=== PATIENT | male | born 1955 | race Caucasian/White ===

== ENCOUNTER 2018-06-29 13:06 | Inpatient (IN) | payer OTHER ==
[2018-06-29] MEDS ORDERED: BENZOIN/ALOE VERA/STORAX/TOLU 58 ML BOTTLE ONE (13:28)
[2018-06-29] MEDS ORDERED: methylPREDNISolone NA SUCC 125 MG/2 ML VIAL IVPB ONE (13:34)
--- NOTE | 2018-06-29 13:47 | PDOC ---
History of Present Illness <Ronda Castanedanadeen - Last Filed: 06/29/18 16:10> - General History Source: Patient, Family Exam Limitations: Clinical Condition - History of Present Illness Initial Comments: 06/29/18 13:40 Patient is a 62M with history of COPD, CHF here today complaining of shortness of breath that started yesterday. Patient also reports falling while trying to go to the bathroom last night. Denies LOC. States that he fell after tripping over his oxygen wire. EMS reports patient was diaphoretic with ETCO2 readings in 100s. BP was repeated as 100/50. Patient denies fevers/chills. Denies nausea , vomiting. Denies chest pain, leg swelling. Denies history of blood clots. Denies blood thinners. Denies pain in other extremities. <Rubén Garcia - Last Filed: 06/29/18 19:13> - General Chief Complaint: Shortness of Breath Stated Complaint: SOB Time Seen by Provider: 06/29/18 13:09 Past History <Ronda Castaneda Pavan - Last Filed: 06/29/18 16:10> - Past Medical History COPD: No CHF: No GI Disorders: Yes (umbilical hernia.) HTN: No Hypercholesterolemia: No - Surgical History Abdominal Surgery: Yes (abdominal hernia) Cholecystectomy: Yes - Suicide/Smoking/Psychosocial Hx Smoking History: Never smoked Have you smoked in the past 12 months: No Information on smoking cessation initiated: No Hx Alcohol Use: No Drug/Substance Use Hx: No Substance Use Type: None <Rubén Garcia - Last Filed: 06/29/18 19:13> - Past Medical History Allergies/Adverse Reactions: Allergies Allergy/AdvReac Type Severity Reaction Status Date / Time cephalexin [From Keflex] AdvReac Verified 06/29/18 13:08 Home Medications: Ambulatory Orders Unobtainable 06/29/18 Review of Systems - Review of Systems Comments:: 06/29/18 14:05 GENERAL/CONSTITUTIONAL: No fever or chills. No weakness. +diaphoresis HEAD, EYES, EARS, NOSE AND THROAT: No change in vision. No sore throat. CARDIOVASCULAR: No chest pain +shortness of breath RESPIRATORY: No cough, wheezing, or hemoptysis. GASTROINTESTINAL: No nausea, vomiting, diarrhea or constipation. GENITOURINARY: No dysuria, frequency, or change in urination. MUSCULOSKELETAL: No joint or muscle swelling or pain. No neck or back pain. SKIN: No rash NEUROLOGIC: No headache, vertigo, loss of consciousness, or change in strength/ sensation. ENDOCRINE: No increased thirst. No abnormal weight change HEMATOLOGIC/LYMPHATIC: No anemia, easy bleeding, or history of blood clots. ALLERGIC/IMMUNOLOGIC: No hives or skin allergy. <Rubén Garcia - Last Filed: 06/29/18 19:13> *Physical Exam - Vital Signs Last Vital Signs Temp Pulse Resp BP Pulse Ox 99.1 F 98 H 24 H 102/50 L 100 06/29/18 14:01 06/29/18 13:09 06/29/18 13:09 06/29/18 13:09 06/29/18 13:50 <Ronda Castaneda - Last Filed: 06/29/18 16:10> - Vital Signs Last Vital Signs Temp Pulse Resp BP Pulse Ox 96.5 F L 98 H 24 H 102/50 L 100 06/29/18 13:09 06/29/18 13:09 06/29/18 13:09 06/29/18 13:09 06/29/18 13:09 - Physical Exam Comments: 06/29/18 14:05 GENERAL: Awake, alert, and fully oriented, in acute distress HEAD: No signs of trauma, normocephalic, atraumatic EYES: PERRLA, EOMI, sclera anicteric, conjunctiva clear ENT: Auricles normal inspection, hearing grossly normal, nares patent, oropharynx clear without exudates. Moist mucosa. Blue lips. NECK: Normal ROM, supple, no lymphadenopathy, JVD, or masses LUNGS: Tachypneic, one word sentences, coarse breath sounds bilaterally HEART: Tachycardic, regular, 2/6 systolic blowing murmur. ABDOMEN: Soft, nontender, normoactive bowel sounds. No guarding, no rebound. No masses EXTREMITIES: Normal inspection, Normal range of motion, no edema. No clubbing or cyanosis. NEUROLOGICAL: Cranial nerves II through XII grossly intact. Normal speech, no focal sensorimotor deficits SKIN: Warm, Dry, normal turgor, no rashes or lesions noted. <Rubén Garcia - Last Filed: 06/29/18 19:13> Procedures - Intubation Intubation Method: orotracheal Blade used: Glidescope Tube Size (Fr): 7.5 Medications: Ketamine, Succinylcholine Tube position @ lip (cm): 20 Tube position confirmed by: Direct visualization, CO2 detector, Chest x-ray, Breath sounds Breath Sounds after Intubation: equal Intubation Complications: oral-unsuccessful attempt Post Intubation Xray: Yes (3cm above cy) Progress/Xray Impression: Gr 1 view, second attempt after DL failed <Rubné Garcia - Last Filed: 06/29/18 19:13> ED Treatment Course - LABORATORY CBC & Chemistry Diagram: 06/29/18 13:46 06/29/18 14:50 - ADDITIONAL ORDERS Additional order review: Laboratory Results 06/29/18 06/29/18 06/29/18 15:00 14:50 13:46 PT with INR INR PTT (Actin FS) Puncture Site No Result Required. ABG pH 7.18 L* ABG pCO2 at Pt Temp 144.0 H* ABG pO2 at Pt Temp 120.0 H ABG HCO3 51.2 H* ABG O2 Sat (Measured) 97.3 ABG O2 Content 22.7 H ABG Base Excess 13.8 H Bebeto Test No Result Required. VBG pH POC VBG pCO2 POC VBG pO2 Mixed VBG HCO3 Carboxyhemoglobin 2.0 Methemoglobin 0.3 L Oxygen Flow Rate No Result Required. Sodium 144 Potassium 4.4 Chloride 90 L Carbon Dioxide 49 H Anion Gap 5 L BUN 15 Creatinine 0.5 L Creat Clearance w eGFR > 60 Random Glucose 162 H Lactic Acid Calcium 8.2 L Magnesium 2.1 Total Bilirubin 0.5 AST 12 L ALT 16 Alkaline Phosphatase 78 Creatine Kinase 90 Troponin I < 0.02 Cancelled B-Natriuretic Peptide 55.4 Total Protein 6.9 Albumin 3.5 06/29/18 06/29/18 06/29/18 13:46 13:46 13:46 PT with INR 12.20 INR 1.03 PTT (Actin FS) 26.8 Puncture Site ABG pH ABG pCO2 at Pt Temp ABG pO2 at Pt Temp ABG HCO3 ABG O2 Sat (Measured) ABG O2 Content ABG Base Excess Bebeto Test VBG pH POC VBG pCO2 POC VBG pO2 Mixed VBG HCO3 Carboxyhemoglobin Methemoglobin Oxygen Flow Rate Sodium Cancelled Potassium Cancelled Chloride Cancelled Carbon Dioxide Cancelled Anion Gap Cancelled BUN Cancelled Creatinine Cancelled Creat Clearance w eGFR Cancelled Random Glucose Cancelled Lactic Acid 2.5 H* Calcium Cancelled Magnesium Total Bilirubin Cancelled AST Cancelled ALT Cancelled Alkaline Phosphatase Cancelled Creatine Kinase Troponin I B-Natriuretic Peptide Total Protein Cancelled Albumin Cancelled 06/29/18 13:46 PT with INR INR PTT (Actin FS) Puncture Site ABG pH ABG pCO2 at Pt Temp ABG pO2 at Pt Temp ABG HCO3 ABG O2 Sat (Measured) ABG O2 Content ABG Base Excess Bebeto Test VBG pH Cancelled POC VBG pCO2 Cancelled POC VBG pO2 Cancelled Mixed VBG HCO3 Cancelled Carboxyhemoglobin Methemoglobin Oxygen Flow Rate Sodium Potassium Chloride Carbon Dioxide Anion Gap BUN Creatinine Creat Clearance w eGFR Random Glucose Lactic Acid Calcium Magnesium Total Bilirubin AST ALT Alkaline Phosphatase Creatine Kinase Troponin I B-Natriuretic Peptide Total Protein Albumin 06/29/18 14:21 Influenza Types A,B Antigen - Final Nasopharyngeal Swab - Final 06/29/18 13:46 RBC 4.27 MCV 88.4 MCHC 32.8 RDW 15.7 MPV 8.8 Neutrophils % 85.4 H Lymphocytes % 7.7 L Monocytes % 5.4 Eosinophils % 0.6 Basophils % 0.9 - Medications Given in the ED: ED Medications Discontinued Medications Generic Name Dose Route Start Last Admin Trade Name Jesse PRN Reason Stop Dose Admin Albuterol/Ipratropium 1 amp 06/29/18 13:45 06/29/18 14:45 Duoneb - NEB 06/29/18 14:31 1 amp Q15M EDMUNDO Administration Methylprednisolone Sodium Succinate 125 mg 06/29/18 13:34 06/29/18 13:54 Solu-Medrol - IVPB 06/29/18 13:35 125 mg ONCE ONE Administration <Ronda Castaneda - Last Filed: 06/29/18 16:10> - LABORATORY CBC & Chemistry Diagram: 06/29/18 13:46 06/29/18 14:50 - RADIOLOGY Radiology Studies Ordered: Category Date Time Status CHEST X-RAY PORTABLE* [RAD] Stat Radiology 06/29/18 13:33 Ordered <Rubén Garcia - Last Filed: 06/29/18 19:13> Medical Decision Making - Medical Decision Making 06/29/18 14:07 Patient is 62M with history of COPD and CHF here today with shortness of breath. Vitals notable for tachycardia and tachypnea. Septic workup initiated. DDx includes, but is not limited to: CHF, COPD, pneumonia, PE. Bedside ultrasound shows no b-lines. Given 4 duonebs with some improvement in oxygenation. Desatted to 70s, started on continuous albuterol. Steroids given. CT head ordered, but low suspicion for head bleed, risk not worth benefit as patient not stable enough for head ct. EKG shows sinus tachycardia. No st elevations/depressions. Q waves in inferior leads. Normal intervals. Left axis. 06/29/18 16:54 CXR of limited quality. Shows possible bilateral pneumonia. Will antibiose. After 40 minutes of bipap, patient's ABG drawn, showed pH of 7.18, pCO2 of 144. Patient diaphoretic, mental status waning. Decision made to intubate with family at bedside. Family in agreement. Intubation completed with glidescope with grade 1 view and bougie. 7.5 tube placed 21 at the lip. Vent settings Vt 500 RR 24, 100% O2. X-ray shows tube 3- 4cm above cy. Patient's follow up blood gas much improved after 20 minutes of ventilation. Sedated with propofol bolus and drip. CMP reassuring, normal kidney function. Troponin undetectable. BNP negative. Pending CT scans. D/w Dr Paez. Patient admission accepted to ICU. ICU approved by Dr Krishna for Dr Jasmine. Patient will go from ED to CT to ICU to minimize transfers of patient on vent. 06/29/18 17:39 Patient is difficult to sedate, becoming hypotensive with appropriately sedated , awake when sedation is decreased. Changing to fentanyl/versed for sedation. Stablizing for CT. 06/29/18 19:[address] Mcnair, pending transfer to ICU. <Rubén Garcia - Last Filed: 06/29/18 19:13> *DC/Admit/Observation/Transfer - Discharge Dispostion Decision to Admit order: Yes Decision to Admit order Date/Time: Decision to Admit Order Category Date Time Status Decision to Admit to Hospital Routine Admission 06/29/18 16:07 Ordered <Ronda Castaneda - Last Filed: 06/29/18 16:10> - Discharge Dispostion Decision to Admit order: Yes <Rubén Garcia - Last Filed: 06/29/18 19:13> Diagnosis at time of Disposition: Acute respiratory failure, Acute respiratory acidosis, COPD (chronic obstructive pulmonary disease), Traumatic hematoma of forehead - Discharge Dispostion Condition at time of disposition: Critical
[2018-06-29] MEDS ORDERED: ALBUTEROL SO4 2.5/IPRATROPIUM 0.5 INH SOL 3 ML VIAL.NEB. NEB ONE (13:53)
[2018-06-29] MEDS: ALBUTEROL SO4 2.5/IPRATROPIUM 0.5 INH SOL 3 ML VIAL.NEB. NEB SCH ×4 (13:53→14:45)
[2018-06-29] MEDS ORDERED: methylPREDNISolone NA SUCC 125 MG/2 ML VIAL ONE (13:54)
[2018-06-29 14:10] LABS: BASO % 0.9 % (0-2.0); EOS % 0.6 % (0-4.5); HEMATOCRIT 37.8 % (35.4-49); HEMOGLOBIN 12.4 GM/dL (11.7-16.9); LYMPH % 7.7 % (8-40); MCHC 32.8 g/dl (32.0-35.9); MEAN CELL VOLUME 88.4 fl (80-96); MEAN PLT VOLUME 8.8 fl (7.5-11.1); MONO % 5.4 % (3.8-10.2); NEUT % 85.4 % (42.8-82.8); PLATELET COUNT 193 K/MM3 (134-434); RBC 4.27 M/mm3 (4.00-5.60); RDW 15.7 % (11.9-15.9)
--- NOTE | 2018-06-29 14:19 | PDOC ---
Attending Attestation - Resident Resident Name: Rubén Garcia - ED Attending Attestation I have performed the following: I have examined & evaluated the patient, The case was reviewed & discussed with the resident, I agree w/resident's findings & plan - HPI HPI: 06/29/18 14:14 Denny 62M with history of obesity, COPD on O2, CHF here today complaining of shortness of breath that started yesterday, x2 episodes of falling after tripping over his O2 wire. - Physicial Exam PE: 06/29/18 14:15 Alert, unable to speak full sentences, in severe respiratory distress, +pursing lips. tachypneic. malaised appearing. +forehead hematoma/contusion. PERRL, EOMI , pale conjunctiva, anicteric; neck supple, copoius soft tissue. poor inspiratory effort, diminished breath sounds diffusely. +tachycardic and + holosystolic murmur present. abdomen soft obese, anterior ventral soft hernia w/ o skin changes and nontender. no focal neuro deficits. bilateral peripheral edema. no calf tenderness. +peripheral and lip cyanosis 06/29/18 15:14 - Critical Care Time Total Critical Care Time: 60 (acute respiratory failure) Critical Care Statement: The care of this patient involved high complexity decision making to prevent further life threatening deterioration of the patient 's condition and/or to evaluate & treat vital organ system(s) failure or risk of failure. - Medical Decision Making 06/29/18 14:14 Denny 62M with history of obesity, COPD on O2, CHF here today complaining of shortness of breath that started yesterday, x2 episodes of falling after tripping over his O2 wire. via EMS, Endtidal CO2 noted to be 100s. s/p fall from yesterday with contusion/hematoma over forehead Denny 62M with history of obesity, COPD on O2, CHF here today complaining of shortness of breath that started yesterday, x2 episodes of falling after tripping over his O2 wire. DDx SOB: ACS, PE, COPD exac. CO2 narcosis, hypoventilatory syndrome, CHF, pulmonary edema, pleurisy, pneumonia, viral syndrome. effusion. anemia, electrolyte/metabolic derangements. Vital signs reviewed, +tachy, tachypneic, in moderate to severe respiratory distress. CXR_diffuse edema/patchy infiltrative pattern Cardiac panel_neg bnp and troponin, less likely cardiac or CHF. no elevation in biomarkers, so less likely RV strain with unremarkable Echo RV<LV, otherwise indeterminate for pericardial effusion as poor cardiac windows; b/l A lines, normal lung profile finding on US. EKG sinus tachycardia, no interval abnormalities, narrow QRS, ST and T wave segments and morphology normal. Nonspecific T wave abnormalities ED course: Clinically monitored after interventions, including Duonebs x3, continuous albuterol nebs, IV solumedrol, Bipap therapy and unable to wean. There was a brief period of hypoxia in 70s with good waveform, with non-fitting mask which is changed to ensure good seal. No prior notes here. laboratory results and imaging reviewed, basic labs and lytes +leukocytosis 14K, will treat with abx. ABG grossly abnormal with CO2 retention ~140s, acute respiratory acidosis pH 7.18. This obtained on Bipap therapy x 30-60min already, so will intubate for acute decompensated respiratory failure and AMS/CO2 retention/derangement. Emergent Intubation performed, family consented, as failing bipap. 2 attempts by resident, b/l breath sounds and ETCO2 80s. versed sedation/fentanyl for pain control. Gore, NGT, GI ppx, analgesia, IV abx for empiric coverage vancomycin/ zosyn. CT head to r/o bleed/injury. CT Angio to r/o PE given hypoxia and respiratory failure and alternative etiology. ICU cs, accepted primary made aware, Dr Barboza/Cynthia. Dispo: Admit to ICU for acute hypercap/hypoxic respiratory failure, PNA? Vs severe COPD exac. Discussed results and management plan with pt and family member at bedside, agree with impression and plan 06/29/18 17:27 06/29/18 17:28 06/30/18 17:41 Heart Score/ECG Review - ECG Impressions Comment:: 06/29/18 14:17 EKG normal sinus rhythm, no interval abnormalities, narrow QRS, ST and T wave segments and morphology normal. Nonspecific T wave abnormalities Procedures - Bedside Ultrasound Bedside Ultrasound: Cardiac Remarks: 06/29/18 17:22 POCUS echo and thoracic exam performed, indication includes chest pain/dyspnea. views obtained (PSLA, PSS, A4, SX, bilateral thoracic de la garza). Findings include normal EF, bases unable to be visualized due to poor windows, indeterminate pericardial effusion, primarily A lines, . Normal aortic root <4cm. RV<LV. Impression: indeterminate study for pericardial or pleural effusion, otherwise no acute findings
[2018-06-29 14:20] LABS: INR 1.03 (0.83-1.09); PROTHROMBIN TIME (PATIENT) 12.2 SEC (9.7-13.0)
[2018-06-29 14:23] LABS: ACTIVATED PTT 26.8 SECONDS (25.2-36.5)
[2018-06-29 15:02] LABS: ARTERIAL BLD GAS O2 SATURATION 97.3 % (90-98.9); ARTERIAL BLOOD GAS BASE EXCESS 13.8 meq/l (-2-2)
[2018-06-29 15:04] LABS: ARTERIAL BLOOD GAS pH 7.18 (7.35-7.45)
[2018-06-29] MEDS ORDERED: KETAMINE HCL 500 MG/10 ML VIAL ONE (15:18)
[2018-06-29] MEDS ORDERED: SUCCINYLCHOLINE CHLORIDE 200 MG/10 ML VIAL ONE (15:19)
[2018-06-29 15:52] LABS: ALBUMIN 3.5 g/dl (3.4-5.0); ALK PHOS 78 U/L (45-117); BILIRUBIN,TOTAL 0.5 mg/dL (0.2-1); BLOOD UREA NITROGEN 15 mg/dL (7-18); CALCIUM 8.2 mg/dL (8.5-10.1); CHLORIDE 90 mmol/L (98-107); CREATININE 0.5 mg/dL (0.55-1.3); GLUCOSE,RANDOM 162 mg/dL (74-106); MAGNESIUM 2.1 mg/dL (1.8-2.4); N-TERMINAL BNP 55.4 pg/ml (5-125); POTASSIUM 4.4 mmol/L (3.5-5.1); SGOT/AST 12 U/L (15-37); SGPT/ALT 16 U/L (13-61); SODIUM 144 mmol/L (136-145); TOT PROT 6.9 g/dl (6.4-8.2)
[2018-06-29 15:56] LABS: ANION GAP 5 MMOL/L (8-16); CO2 49 mmol/L (21-32)
[2018-06-29] MEDS ORDERED: PROPOFOL 1,000,000 MCG/100 ML VIAL ONE ×2 (16:05→20:19)
[2018-06-29] MEDS ORDERED: SUCCINYLCHOLINE CHLORIDE 200 MG/10 ML VIAL IVPUSH ONE (16:07)
[2018-06-29] MEDS ORDERED: KETAMINE HCL 200 MG/20 ML VIAL IVPUSH ONE (16:07)
[2018-06-29] MEDS ORDERED: VANCOMYCIN 2,000 MG in DEXTROSE 5%-WATER - 250 ML IVPB ONE (16:08)
[2018-06-29] MEDS ORDERED: PIPERACILLIN/TAZOB 4.5 GM 4.5 GM in DEXTROSE 5%-WATER 100 ML IVPB ONE (16:09)
[2018-06-29] MEDS: PROPOFOL 1,000,000 MCG/100 ML VIAL IVPB SCH (16:15)
[2018-06-29 16:29] LABS: ARTERIAL BLD GAS O2 SATURATION 97.9 % (90-98.9); ARTERIAL BLOOD GAS pH 7.33 (7.35-7.45); CARBOXYHEMOGLOBIN 2.4 gm% (0.5-2.0)
[2018-06-29 16:33] LABS: ARTERIAL BLOOD GAS BASE EXCESS 18.5 meq/l (-2-2); ARTERIAL BLOOD GAS PCO2 94.9 mmHg (35-45)
[2018-06-29] MEDS ORDERED: PIPERACILLIN/TAZOB 4.5 GM 4.5 GM/100 ML BAG IVPB ONE (16:44)
[2018-06-29] MEDS ORDERED: VANCOMYCIN 1 GRAM (PRE-DOCKED) 2,000 MG/500 ML BAG IVPB ONE (16:45)
[2018-06-29] MEDS ORDERED: VANCOMYCIN 2,000 MG in DEXTROSE 5%-WATER - 500 ML IVPB ONE (16:50)
[2018-06-29] MEDS ORDERED: PROPOFOL 200 MG/20 ML VIAL IVPUSH ONE ×2 (16:52)
[2018-06-29] MEDS ORDERED: MIDAZOLAM HCL 2 MG/2 ML SINGLE DOSE VIAL ONE (17:24)
[2018-06-29] MEDS ORDERED: MIDAZOLAM HCL 5 MG/1 ML Single Dose Vial IVPUSH ONE (17:24)
[2018-06-29] MEDS ORDERED: PANTOPRAZOLE SODIUM 40 MG VIAL IVPUSH ONE (17:28)
[2018-06-29] MEDS ORDERED: MIDAZOLAM 100 MG in SODIUM CHLORIDE 100 ML IVPB SCH (17:30)
[2018-06-29] MEDS ORDERED: PANTOPRAZOLE SODIUM 40 MG VIAL ONE (17:34)
[2018-06-29] MEDS ORDERED: MIDAZOLAM 100 MG/100 ML MG IVPB ONE (17:41)
[2018-06-29] MEDS: FENTANYL INJECTION 500 MCG in DEXTROSE 5%-WATER - 90 ML IVPB SCH (17:42)
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
[2018-06-29 18:18] LABS: URINE APPEARANCE CLEAR; URINE BILIRUBIN NEGATIVE (<2.0 mg/dL); URINE COLOR AMBER; URINE GLUCOSE (UA) NEGATIVE (NEGATIVE); URINE KETONE TRACE (NEGATIVE); URINE LEUK ESTERASE NEGATIVE (NEGATIVE); URINE NITRITE NEGATIVE (NEGATIVE); URINE PROTEIN 2+ (NEGATIVE); URINE UROBILINOGEN 4.0 E.U/dl mg/dL (0.2-1.0)
[2018-06-29 18:19] LABS: EPI CELLS RARE /HPF (FEW); URINE HYALINE CAST 13 /lpf; URINE MUCUS MANY
[2018-06-29] MEDS: ALBUTEROL SO4 0.083% IH SOL 2.5 MG/3 ML VIAL.NEB. NEB SCH ×2 (18:20→21:55)
[2018-06-29] MEDS: methylPREDNISolone NA SUCC 40 MG/1 ML VIAL IVPB SCH ×2 (18:20→22:05)
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
[2018-06-29] MEDS ORDERED: IBUPROFEN 400 MG TABLET (FP) PO ONE (18:30)
[2018-06-29 20:35] LABS: N-TERMINAL BNP 54.8 pg/ml (5-125)
[2018-06-29] MEDS ORDERED: SODIUM CHLORIDE 0.9% 500 ML INFUS.BAG IV ONE (21:37)
[2018-06-29] MEDS ORDERED: PNEUMOC 13-VAL CONJ-DIP CRM/PF 0.5 ML DISP.SYRIN IM ONE (21:37)
[2018-06-29] MEDS ORDERED: ACETAMINOPHEN 1000 MG/100 ML VIAL (NON FORMULARY) IVPB ONE (21:50)
[2018-06-29] MEDS ORDERED: fentaNYL CITRATE 250 MCG/5 ML VIAL ONE (22:47)
[2018-06-29] MEDS ORDERED: ALBUTEROL SO4 2.5/IPRATROPIUM 0.5 INH SOL 3 ML VIAL.NEB. NEB PRN (22:58)
[2018-06-29] MEDS ORDERED: ACETAMINOPHEN 1000 MG/100 ML VIAL (NON FORMULARY) IVPB PRN (23:41)
[2018-06-29] MEDS ORDERED: SODIUM CHLORIDE 1,000 ML IV SCH (23:45)
[2018-06-30] MEDS: MIDAZOLAM 100 MG in SODIUM CHLORIDE 100 ML IVPB SCH ×2 (00:27→08:55)
[2018-06-30] MEDS: methylPREDNISolone NA SUCC 40 MG/1 ML VIAL IVPB SCH ×4 (02:51→22:32)
[2018-06-30] MEDS ORDERED: SODIUM CHLORIDE 500 ML IV STA (05:33)
[2018-06-30 06:03] LABS: ARTERIAL BLD GAS O2 SATURATION 99.9 % (90-98.9); ARTERIAL BLOOD GAS BASE EXCESS 17.3 meq/l (-2-2); ARTERIAL BLOOD GAS PCO2 49.3 mmHg (35-45); ARTERIAL BLOOD GAS pH 7.55 (7.35-7.45)
[2018-06-30 06:41] LABS: BASO % 0.1 % (0-2.0); HEMATOCRIT 33.5 % (35.4-49); HEMOGLOBIN 10.7 GM/dL (11.7-16.9); LYMPH % 3.7 % (8-40); MCH 28.1 pg (25.7-33.7); MCHC 31.9 g/dl (32.0-35.9); MEAN CELL VOLUME 88.3 fl (80-96); NEUT % 94.2 % (42.8-82.8); PLATELET COUNT 147 K/MM3 (134-434); RBC 3.79 M/mm3 (4.00-5.60); RDW 15.1 % (11.9-15.9); WHITE BLOOD COUNT 12.5 K/mm3 (4.0-10.0)
[2018-06-30 06:57] LABS: ALLENS TEST POSITIVE
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
[2018-06-30 07:27] LABS: ALBUMIN 2.9 g/dl (3.4-5.0); ALK PHOS 64 U/L (45-117); ANION GAP 4 MMOL/L (8-16); BILIRUBIN,TOTAL 0.7 mg/dL (0.2-1); BLOOD UREA NITROGEN 22 mg/dL (7-18); CALCIUM 8.3 mg/dL (8.5-10.1); CHLORIDE 91 mmol/L (98-107); CO2 42 mmol/L (21-32); CREATININE 0.8 mg/dL (0.55-1.3); GLUCOSE,RANDOM 196 mg/dL (74-106); MAGNESIUM 1.9 mg/dL (1.8-2.4); SGOT/AST 12 U/L (15-37); SGPT/ALT 15 U/L (13-61); SODIUM 137 mmol/L (136-145); TOT PROT 5.8 g/dl (6.4-8.2)
[2018-06-30 07:41] LABS: PHOSPHOROUS 0.8 mg/dL (2.5-4.9)
[2018-06-30] MEDS: FENTANYL INJECTION 500 MCG in DEXTROSE 5%-WATER - 90 ML IVPB SCH ×2 (08:31→13:39)
[2018-06-30] MEDS: PROPOFOL 1,000,000 MCG/100 ML VIAL IVPB SCH ×3 (08:32→18:46)
[2018-06-30] MEDS ORDERED: MIDAZOLAM 100 MG/100 ML MG IVPB ONE (08:42)
[2018-06-30] MEDS ORDERED: PT OWN MED DRAWER 7, Y5N ONE ×4 (09:41→21:07)
[2018-06-30] MEDS ORDERED: PNEUMOCOCCAL 23 VACCINE 0.5 ML VIAL IM ONE (10:00)
[2018-06-30] MEDS ORDERED: AZITHROMYCIN IVPB 500 MG/250 ML BAG IVPB SCH (10:00)
[2018-06-30] MEDS: ENOXAPARIN NA (PORCINE) 40 MG/0.4 ML DISP.SYRIN SQ SCH (10:10)
--- NOTE | 2018-06-30 10:18 | PN ---
Teaching Attending Note Name of Resident: Long Ariza ATTENDING PHYSICIAN STATEMENT I saw and evaluated the patient. I reviewed the resident's note and discussed the case with the resident. I agree with the resident's findings and plan as documented. SUBJECTIVE: Patient seen and examined in the ICU. Intubated and sedated. Obstructive pattern on flow loops. No breath stacking. Respiratory alkalosis on ABG. AC Mode of vent, 60% FiO2. No pressors. Intake & Output 06/27/18 06/28/18 06/29/18 06/30/18 23:59 23:59 23:59 23:59 Intake Total 415 2295 Output Total 500 750 Balance -85 1545 Weight 340 lb Last Vital Signs Temp Pulse Resp BP Pulse Ox 99.9 F H 65 16 130/74 100 06/30/18 06:00 06/30/18 08:00 06/30/18 09:43 06/30/18 08:00 06/29/18 19:51 Active Medications Acetaminophen (Ofirmev Injection -) 1,000 mg IVPB Q6H PRN PRN Reason: FEVER Last Admin: 06/30/18 02:51 Dose: 1,000 mg Albuterol Sulfate (Ventolin 0.083% Nebulizer Soln -) 1 amp NEB RQID EDMUNDO Last Admin: 06/29/18 21:55 Dose: 1 amp Albuterol/Ipratropium (Duoneb -) 1 amp NEB Q6H PRN PRN Reason: SHORTNESS OF BREATH Enoxaparin Sodium (Lovenox -) 40 mg SQ DAILY EDUMNDO Propofol (Diprivan -) 1,000,000 mcg in 100 mls @ 4.463 mls/hr IVPB TITR EDMUNDO; Protocol Last Admin: 06/30/18 08:32 Dose: 25 mcg/kg/min, 22.317 mls/hr Fentanyl 500 mcg/ Dextrose 100 mls @ 20 mls/hr IVPB TITR EDMUNDO Stop: 06/30/18 17:29 Last Admin: 06/30/18 08:31 Dose: 100 mcg/hr, 20 mls/hr Midazolam HCl 100 mg/ Sodium (Chloride) 100 mls @ 7 mls/hr IVPB TITR EDMUNDO; Protocol Stop: 06/30/18 17:29 Last Admin: 06/30/18 08:55 Dose: 5 mg/hr, 5 mls/hr Sodium Chloride (Normal Saline -) 1,000 mls @ 100 mls/hr IV ASDIR EDMUNDO Last Admin: 06/30/18 00:27 Dose: 100 mls/hr Levofloxacin (Levaquin 750 Mg Premixed Ivpb -) 750 mg in 150 mls @ 100 mls/hr IVPB DAILY EDMUNDO; Protocol Last Admin: 06/30/18 07:01 Dose: 100 mls/hr Methylprednisolone Sodium Succinate (Solu-Medrol -) 60 mg IVPB Q6H-IV EDMUNDO Last Admin: 06/30/18 02:51 Dose: 60 mg Pantoprazole Sodium (Protonix Iv) 40 mg IVPUSH DAILY [facility]: Morbidly obese male, Sedated and Intubated HEAD: hematoma on the forehead, no signs of active bleeding. EYES: No pallor or icterus. EARS, NOSE, THROAT: Moist mucous membranes. NECK: Short and thick, no JVD. LUNGS: diminished breath sounds at the bases Left>Right, mild expiratory wheeze HEART: Regular rate and rhythm, normal S1 and S2 with soft systolic murmur. ABDOMEN: Ventral hernia, soft umbilical hernia, abdomen is soft, BS +, no organomegaly. MUSCULOSKELETAL: Normal range of motion at all joints. No bony deformities or tenderness. No CVA tenderness. UPPER EXTREMITIES: 2+ pulses, warm, well-perfused. No cyanosis. No clubbing. LOWER EXTREMITIES: 2+ pulses, warm, well-perfused. No calf tenderness. B/l trace peripheral edema up to mid matos. NEUROLOGICAL: Sedated and intubated. SKIN: Warm, dry, normal turgor, no rashes or lesions noted. ASSESSMENT/PLAN: Acute Hypoxic and Hypercapneic Respiratory Failure due to AE of COPD and LLL CAP Severe COPD on 6 L NC O2 at home Hypertension History of CHF OSAS on CPAP OHS Morbid Obesity BD TX standing and PRN Medrol Decrease RR Follow ABG VTE prophylaxis Check sputum Check Urine antigen ABX per ID Enteral feeds GI prophylaxis after [address] Jasmine - Critical Care Critical Care patient: Yes Total Critical Care Time (in minutes): 36 Critical Care Statement: The care of this patient involved high complexity decision making to prevent further life threatening deterioration of the patient 's condition and/or to evaluate & treat vital organ system(s) failure or risk of failure.
[2018-06-30] MEDS ORDERED: ALBUTEROL SO4 0.083% IH SOL 2.5 MG/3 ML VIAL.NEB. NEB PRN (10:19)
[2018-06-30 10:56] LABS: ANISOCYTOSIS 1+; MACROCYTOSIS 0; PLATELET ESTIMATE DECREASED
[2018-06-30] MEDS: PANTOPRAZOLE SODIUM 40 MG VIAL IVPUSH SCH (11:17)
[2018-06-30] MEDS ORDERED: POTASSIUM PHOSPHATE 30 MM in DEXTROSE 5%-WATER - 250 ML IVPB ONE (11:45)
--- NOTE | 2018-06-30 11:50 | PN ---
Progress Note (short form) - Note Progress Note: ID Consult dictated Hypercapneic respiratory failure Pneumonia Fever/ leukocytosis Possible sepsis secondary to pneumonia Lactic acidosis Cephalosporin allergy Pending sepsis workup empiric levaquin/Vancomycin Critical care time 35min
[2018-06-30] MEDS: ALBUTEROL SO4 2.5/IPRATROPIUM 0.5 INH SOL 3 ML VIAL.NEB. NEB SCH ×3 (12:00→20:40)
--- NOTE | 2018-06-30 12:29 | PN ---
Physical Exam: SUBJECTIVE: Patient seen and examined patient intubated and sedated on midazolam, fentanyl and propofol drip family at bed side OBJECTIVE: Vital Signs Period Temp Pulse Resp BP Sys/Can Pulse Ox Last 24 Hr 96.5 F-102.7 F 63-98 16-24 75-145/50-110 86-100 GENERAL: Morbidly obese male, Sedated and Intubated EYES: No pallor or icterus. EARS, NOSE, THROAT: Moist mucous membranes. NECK: no JVD. LUNGS: b/l air entry present, decrese entry at bases, no crackles HEART: Regular rate and rhythm, normal S1 and S2 with soft systolic murmur. ABDOMEN:umbilical hernia, abdomen is soft, BS +, UPPER EXTREMITIES: 2+ pulses, warm, well-perfused. No cyanosis. LOWER EXTREMITIES: B/l trace peripheral edema SKIN: Warm, dry, Laboratory Results - last 24 hr 06/29/18 06/29/18 06/29/18 13:46 13:46 13:46 WBC 14.0 H RBC 4.27 Hgb 12.4 Hct 37.8 MCV 88.4 MCH 29.0 MCHC 32.8 RDW 15.7 Plt Count 193 MPV 8.8 Absolute Neuts (auto) 12.0 H Neutrophils % 85.4 H Neutrophils % (Manual) Band Neutrophils % Lymphocytes % 7.7 L Lymphocytes % (Manual) Monocytes % 5.4 Monocytes % (Manual) Eosinophils % 0.6 Eosinophils % (Manual) Basophils % 0.9 Basophils % (Manual) Myelocytes % (Man) Promyelocytes % (Man) Blast Cells % (Manual) Nucleated RBC % 0 Metamyelocytes Hypochromia Platelet Estimate Polychromasia Poikilocytosis Anisocytosis Microcytosis Macrocytosis Stomatocytes PT with INR 12.20 INR 1.03 PTT (Actin FS) 26.8 Anticoagulation Therapy Puncture Site Patient Temperature ABG pH ABG pCO2 at Pt Temp ABG pO2 at Pt Temp ABG HCO3 ABG O2 Sat (Measured) ABG O2 Content ABG Base Excess Bebeto Test VBG pH Cancelled POC VBG pCO2 Cancelled POC VBG pO2 Cancelled Mixed VBG HCO3 Cancelled Carboxyhemoglobin Methemoglobin O2 Delivery Device Oxygen Flow Rate Vent Mode Vent Rate Mechanical Rate PEEP Pressure Support Vent Sodium Potassium Chloride Carbon Dioxide Anion Gap BUN Creatinine Creat Clearance w eGFR Random Glucose Lactic Acid Calcium Phosphorus Magnesium Total Bilirubin AST ALT Alkaline Phosphatase Creatine Kinase Troponin I B-Natriuretic Peptide Total Protein Albumin Urine Color Urine Appearance Urine pH Ur Specific [place] Urine Protein Urine Glucose (UA) Urine Ketones Urine Blood Urine Nitrite Urine Bilirubin Urine Urobilinogen Ur Leukocyte Esterase Urine WBC (Auto) Urine RBC (Auto) Ur Epithelial Cells Hyaline Casts Urine Mucus 06/29/18 06/29/18 06/29/18 13:46 13:46 13:46 WBC RBC Hgb Hct MCV MCH MCHC RDW Plt Count MPV Absolute Neuts (auto) Neutrophils % Neutrophils % (Manual) Band Neutrophils % Lymphocytes % Lymphocytes % (Manual) Monocytes % Monocytes % (Manual) Eosinophils % Eosinophils % (Manual) Basophils % Basophils % (Manual) Myelocytes % (Man) Promyelocytes % (Man) Blast Cells % (Manual) Nucleated RBC % Metamyelocytes Hypochromia Platelet Estimate Polychromasia Poikilocytosis Anisocytosis Microcytosis Macrocytosis Stomatocytes PT with INR INR PTT (Actin FS) Anticoagulation Therapy Puncture Site Patient Temperature ABG pH ABG pCO2 at Pt Temp ABG pO2 at Pt Temp ABG HCO3 ABG O2 Sat (Measured) ABG O2 Content ABG Base Excess Bebeto Test VBG pH POC VBG pCO2 POC VBG pO2 Mixed VBG HCO3 Carboxyhemoglobin Methemoglobin O2 Delivery Device Oxygen Flow Rate Vent Mode Vent Rate Mechanical Rate PEEP Pressure Support Vent Sodium Cancelled Potassium Cancelled Chloride Cancelled Carbon Dioxide Cancelled Anion Gap Cancelled BUN Cancelled Creatinine Cancelled Creat Clearance w eGFR Cancelled Random Glucose Cancelled Lactic Acid 2.5 H* Calcium Cancelled Phosphorus Magnesium Total Bilirubin Cancelled AST Cancelled ALT Cancelled Alkaline Phosphatase Cancelled Creatine Kinase Troponin I Cancelled B-Natriuretic Peptide Total Protein Cancelled Albumin Cancelled Urine Color Urine Appearance Urine pH Ur Specific [place] Urine Protein Urine Glucose (UA) Urine Ketones Urine Blood Urine Nitrite Urine Bilirubin Urine Urobilinogen Ur Leukocyte Esterase Urine WBC (Auto) Urine RBC (Auto) Ur Epithelial Cells Hyaline Casts Urine Mucus 06/29/18 06/29/18 06/29/18 14:50 15:00 16:20 WBC RBC Hgb Hct MCV MCH MCHC RDW Plt Count MPV Absolute Neuts (auto) Neutrophils % Neutrophils % (Manual) Band Neutrophils % Lymphocytes % Lymphocytes % (Manual) Monocytes % Monocytes % (Manual) Eosinophils % Eosinophils % (Manual) Basophils % Basophils % (Manual) Myelocytes % (Man) Promyelocytes % (Man) Blast Cells % (Manual) Nucleated RBC % Metamyelocytes Hypochromia Platelet Estimate Polychromasia Poikilocytosis Anisocytosis Microcytosis Macrocytosis Stomatocytes PT with INR INR PTT (Actin FS) Anticoagulation Therapy Pediatric Anesthesiologist No Result Required. Puncture Site Pediatric Anesthesiologist No Result Required. Patient Temperature Pediatric Anesthesiologist ABG pH 7.18 L* 7.33 L D ABG pCO2 at Pt Temp 144.0 H* 94.9 H* D ABG pO2 at Pt Temp 120.0 H 102.0 H ABG HCO3 51.2 H* 48.5 H* ABG O2 Sat (Measured) 97.3 97.9 ABG O2 Content 22.7 H 16.1 ABG Base Excess 13.8 H 18.5 H* Bebeto Test Pediatric Anesthesiologist No Result Required. VBG pH POC VBG pCO2 POC VBG pO2 Mixed VBG HCO3 Carboxyhemoglobin 2.0 2.4 H Methemoglobin 0.3 L 0.1 L O2 Delivery Device Pediatric Anesthesiologist No Result Required. Oxygen Flow Rate Pediatric Anesthesiologist No Result Required. Vent Mode Pediatric Anesthesiologist No Result Required. Vent Rate Pediatric Anesthesiologist 24 Mechanical Rate Pediatric Anesthesiologist No Result Required. PEEP Pediatric Anesthesiologist 5.0 Pressure Support Vent Pediatric Anesthesiologist No Result Required. Sodium 144 Potassium 4.4 Chloride 90 L Carbon Dioxide 49 H Anion Gap 5 L BUN 15 Creatinine 0.5 L Creat Clearance w eGFR > 60 Random Glucose 162 H Lactic Acid Calcium 8.2 L Phosphorus Magnesium 2.1 Total Bilirubin 0.5 AST 12 L ALT 16 Alkaline Phosphatase 78 Creatine Kinase 90 Troponin I < 0.02 B-Natriuretic Peptide 55.4 Total Protein 6.9 Albumin 3.5 Urine Color Urine Appearance Urine pH Ur Specific [place] Urine Protein Urine Glucose (UA) Urine Ketones Urine Blood Urine Nitrite Urine Bilirubin Urine Urobilinogen Ur Leukocyte Esterase Urine WBC (Auto) Urine RBC (Auto) Ur Epithelial Cells Hyaline Casts Urine Mucus 06/29/18 06/29/18 06/29/18 17:50 18:00 19:59 WBC RBC Hgb Hct MCV MCH MCHC RDW Plt Count MPV Absolute Neuts (auto) Neutrophils % Neutrophils % (Manual) Band Neutrophils % Lymphocytes % Lymphocytes % (Manual) Monocytes % Monocytes % (Manual) Eosinophils % Eosinophils % (Manual) Basophils % Basophils % (Manual) Myelocytes % (Man) Promyelocytes % (Man) Blast Cells % (Manual) Nucleated RBC % Metamyelocytes Hypochromia Platelet Estimate Polychromasia Poikilocytosis Anisocytosis Microcytosis Macrocytosis Stomatocytes PT with INR INR PTT (Actin FS) Anticoagulation Therapy Puncture Site Patient Temperature ABG pH ABG pCO2 at Pt Temp ABG pO2 at Pt Temp ABG HCO3 ABG O2 Sat (Measured) ABG O2 Content ABG Base Excess Bebeto Test VBG pH POC VBG pCO2 POC VBG pO2 Mixed VBG HCO3 Carboxyhemoglobin Methemoglobin O2 Delivery Device Oxygen Flow Rate Vent Mode Vent Rate Mechanical Rate PEEP Pressure Support Vent Sodium Potassium Chloride Carbon Dioxide Anion Gap BUN Creatinine Creat Clearance w eGFR Random Glucose Lactic Acid 2.5 H* Calcium Phosphorus Magnesium Total Bilirubin AST ALT Alkaline Phosphatase Creatine Kinase 69 Troponin I < 0.02 B-Natriuretic Peptide 54.8 Total Protein Albumin Urine Color Jessika Urine Appearance Clear Urine pH 5.0 Ur Specific Linwood 1.026 Urine Protein 2+ H Urine Glucose (UA) Negative Urine Ketones Trace H Urine Blood Negative Urine Nitrite Negative Urine Bilirubin Negative Urine Urobilinogen 4.0 e.u/dl Ur Leukocyte Esterase Negative Urine WBC (Auto) 5 Urine RBC (Auto) 1 Ur Epithelial Cells Rare Hyaline Casts 13 Urine Mucus Many 06/30/18 06/30/18 06/30/18 02:30 05:20 05:30 WBC 12.5 H RBC 3.79 L Hgb 10.7 L Hct 33.5 L MCV 88.3 MCH 28.1 MCHC 31.9 L RDW 15.1 Plt Count 147 D MPV 9.0 Absolute Neuts (auto) 11.8 H Neutrophils % 94.2 H Neutrophils % (Manual) 90.7 H Band Neutrophils % 4.1 Lymphocytes % 3.7 L D Lymphocytes % (Manual) 1.1 L Monocytes % 2.0 L Monocytes % (Manual) 3 L Eosinophils % 0.0 D Eosinophils % (Manual) 0.0 Basophils % 0.1 Basophils % (Manual) 0.0 Myelocytes % (Man) 0 Promyelocytes % (Man) 0 Blast Cells % (Manual) 0 Nucleated RBC % 0 Metamyelocytes 0 Hypochromia 0 Platelet Estimate Decreased Polychromasia 1+ Poikilocytosis 0 Anisocytosis 1+ Microcytosis 1+ Macrocytosis 0 Stomatocytes 1+ PT with INR INR PTT (Actin FS) Anticoagulation Therapy No Result Required. Puncture Site Left radial Patient Temperature ABG pH 7.55 H D ABG pCO2 at Pt Temp 49.3 H D ABG pO2 at Pt Temp 199.0 H* ABG HCO3 42.6 H* ABG O2 Sat (Measured) 99.9 H* ABG O2 Content 17.1 ABG Base Excess 17.3 H* Bebeto Test Positive VBG pH POC VBG pCO2 POC VBG pO2 Mixed VBG HCO3 Carboxyhemoglobin Methemoglobin O2 Delivery Device Mech vent Oxygen Flow Rate 100% Vent Mode A/c Vent Rate 24 Mechanical Rate Yes PEEP 5.0 Pressure Support Vent 500 Sodium Potassium Chloride Carbon Dioxide Anion Gap BUN Creatinine Creat Clearance w eGFR Random Glucose Lactic Acid 3.4 H* Calcium Phosphorus Magnesium Total Bilirubin AST ALT Alkaline Phosphatase Creatine Kinase Troponin I B-Natriuretic Peptide Total Protein Albumin Urine Color Urine Appearance Urine pH Ur Specific [place] Urine Protein Urine Glucose (UA) Urine Ketones Urine Blood Urine Nitrite Urine Bilirubin Urine Urobilinogen Ur Leukocyte Esterase Urine WBC (Auto) Urine RBC (Auto) Ur Epithelial Cells Hyaline Casts Urine Mucus 06/30/18 06/30/18 05:30 09:00 WBC RBC Hgb Hct MCV MCH MCHC RDW Plt Count MPV Absolute Neuts (auto) Neutrophils % Neutrophils % (Manual) Band Neutrophils % Lymphocytes % Lymphocytes % (Manual) Monocytes % Monocytes % (Manual) Eosinophils % Eosinophils % (Manual) Basophils % Basophils % (Manual) Myelocytes % (Man) Promyelocytes % (Man) Blast Cells % (Manual) Nucleated RBC % Metamyelocytes Hypochromia Platelet Estimate Polychromasia Poikilocytosis Anisocytosis Microcytosis Macrocytosis Stomatocytes PT with INR INR PTT (Actin FS) Anticoagulation Therapy Puncture Site Patient Temperature ABG pH ABG pCO2 at Pt Temp ABG pO2 at Pt Temp ABG HCO3 ABG O2 Sat (Measured) ABG O2 Content ABG Base Excess Bebeto Test VBG pH POC VBG pCO2 POC VBG pO2 Mixed VBG HCO3 Carboxyhemoglobin Methemoglobin O2 Delivery Device Oxygen Flow Rate Vent Mode Vent Rate Mechanical Rate PEEP Pressure Support Vent Sodium 137 Potassium 4.0 Chloride 91 L Carbon Dioxide 42 H Anion Gap 4 L BUN 22 H Creatinine 0.8 Creat Clearance w eGFR > 60 Random Glucose 196 H Lactic Acid 2.0 Calcium 8.3 L Phosphorus 0.8 L* Magnesium 1.9 Total Bilirubin 0.7 AST 12 L ALT 15 Alkaline Phosphatase 64 Creatine Kinase Troponin I B-Natriuretic Peptide Total Protein 5.8 L Albumin 2.9 L Urine Color Urine Appearance Urine pH Ur Specific [place] Urine Protein Urine Glucose (UA) Urine Ketones Urine Blood Urine Nitrite Urine Bilirubin Urine Urobilinogen Ur Leukocyte Esterase Urine WBC (Auto) Urine RBC (Auto) Ur Epithelial Cells Hyaline Casts Urine Mucus Active Medications Generic Name Dose Route Start Last Admin Trade Name Freq PRN Reason Stop Dose Admin Acetaminophen 1,000 mg 06/29/18 23:41 06/30/18 02:51 Ofirmev Injection - IVPB 1,000 mg Q6H PRN Administration FEVER Albuterol Sulfate 1 amp 06/30/18 10:19 Ventolin 0.083% Nebulizer Soln - NEB Q4H PRN SHORTNESS OF BREATH Albuterol/Ipratropium 1 amp 06/30/18 12:00 Duoneb - NEB RQID EDMUNDO Enoxaparin Sodium 40 mg 06/30/18 10:00 06/30/18 10:10 Lovenox - SQ 40 mg DAILY EDMUNDO Administration Propofol 1,000,000 mcg in 100 mls @ 4.463 mls/hr 06/29/18 16:15 06/30/18 08: 32 Diprivan - IVPB 25 mcg/kg/min TITR EDMUNDO 22.317 mls/hr Administration Protocol 5 MCG/KG/MIN Fentanyl 500 mcg/ Dextrose 100 mls @ 20 mls/hr 06/29/18 17:30 06/30/18 08:31 IVPB 06/30/18 17:29 100 mcg/hr TITR EDMUNDO 20 mls/hr Administration 100 MCG/HR Sodium Chloride 1,000 mls @ 100 mls/hr 06/29/18 23:45 06/30/18 00:27 Normal Saline - IV 100 mls/hr ASDIR EDMUNDO Administration Levofloxacin 750 mg in 150 mls @ 100 mls/hr 06/30/18 07:00 06/30/18 07:01 Levaquin 750 Mg Premixed Ivpb - IVPB 100 mls/hr DAILY EDMUNDO Administration Protocol Potassium Phosphate 30 mm/ 260 mls @ 62.5 mls/hr 06/30/18 11:45 Dextrose IVPB 06/30/18 15:54 ONCE ONE Vancomycin HCl 1,000 mg in 250 mls @ 166.667 mls/hr 06/30/18 12:15 Vancomycin (Pre-Docked) IVPB BID@0000,1200 [facility] Protocol Methylprednisolone Sodium Succinate 60 mg 06/29/18 18:15 06/30/18 10:14 Solu-Medrol - IVPB 60 mg Q6H-IV EDMUNDO Administration Pantoprazole Sodium 40 mg 06/30/18 10:00 06/30/18 11:17 Protonix Iv IVPUSH 40 mg DAILY EDMUNDO Administration ASSESSMENT/PLAN: Acute Hypoxic and Hypercapneic Respiratory Failure due to AE of COPD and LLL CAP Severe COPD on 6 L NC O2 at home and CPAP Hypertension History of CHF OSAS on CPAP OHS Morbid Obesity Plan Respiratory rate decreased to 16 and fio2 to 40 Repeat abg in 2 hours stop midazolam and if need sedation can go up on propofol continue steroid antibiotic as per ID VTE prophylaxis Check sputum Check Urine antigen ABX per ID Enteral feeds GI prophylaxis after 48 hours dvt prophylaxis ICU Monitoring Visit type - Emergency Visit Emergency Visit: Yes ED Registration Date: 06/29/18 Care time: The patient presented to the Emergency Department on the above date and was hospitalized for further evaluation of their emergent condition. - New Patient This patient is new to me today: Yes Date on this admission: 07/01/18 - Critical Care Critical Care patient: Yes Total Critical Care Time (in minutes): 45 Critical Care Statement: The care of this patient involved high complexity decision making to prevent further life threatening deterioration of the patient 's condition and/or to evaluate & treat vital organ system(s) failure or risk of failure.
[2018-06-30] MEDS: VANCOMYCIN 1 GRAM (PRE-DOCKED) 1,000 MG/250 ML BAG IVPB SCH (12:36)
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
[2018-06-30] MEDS ORDERED: fentaNYL CITRATE 250 MCG/5 ML VIAL ONE ×2 (13:37→18:52)
[2018-06-30 15:11] LABS: ARTERIAL BLD GAS O2 SATURATION 94.5 % (90-98.9); ARTERIAL BLOOD GAS PO2 70.5 mmHg (80-100); ARTERIAL BLOOD GAS pH 7.43 (7.35-7.45)
[2018-06-30 15:14] LABS: ALLENS TEST POSITIVE
[2018-06-30 15:16] LABS: ARTERIAL BLOOD GAS PCO2 63.5 mmHg (35-45)
[2018-06-30] MEDS ORDERED: FENTANYL INJECTION 500 MCG in DEXTROSE 5%-WATER - 90 ML IVPB SCH (19:00)
--- NOTE | 2018-06-30 19:04 | EKG ---
Test Reason : Blood Pressure : / mmHG Vent. Rate : 104 BPM Atrial Rate : 104 BPM P-R Int : 166 ms QRS Dur : 084 ms QT Int : 342 ms P-R-T Axes : 026 -60 030 degrees QTc Int : 449 ms SINUS TACHYCARDIA LEFT AXIS DEVIATION INFERIOR-POSTERIOR INFARCT , AGE UNDETERMINED ABNORMAL ECG NO PREVIOUS ECGS AVAILABLE Confirmed by STONEY ECHEVERRIA MD ([id number]) on 06/30/2018 7:03:31 PM Referred By: Confirmed By:STONEY ECHEVERRIA MD
[2018-07-01] MEDS ORDERED: fentaNYL CITRATE 250 MCG/5 ML VIAL ONE (02:23)
[2018-07-01] MEDS: methylPREDNISolone NA SUCC 40 MG/1 ML VIAL IVPB SCH ×3 (02:34→17:19)
[2018-07-01] MEDS ORDERED: MIDAZOLAM HCL 2 MG/2 ML SINGLE DOSE VIAL ONE (05:32)
[2018-07-01 06:04] LABS: BASO % 0.1 % (0-2.0); HEMATOCRIT 33.9 % (35.4-49); HEMOGLOBIN 10.9 GM/dL (11.7-16.9); LYMPH % 3.2 % (8-40); MCH 27.8 pg (25.7-33.7); MCHC 32.2 g/dl (32.0-35.9); MEAN CELL VOLUME 86.5 fl (80-96); MEAN PLT VOLUME 8.9 fl (7.5-11.1); MONO % 2.9 % (3.8-10.2); NEUT % 93.8 % (42.8-82.8); PLATELET COUNT 154 K/MM3 (134-434); RBC 3.92 M/mm3 (4.00-5.60); RDW 15.8 % (11.9-15.9); WHITE BLOOD COUNT 13.7 K/mm3 (4.0-10.0)
[2018-07-01 06:28] LABS: ALBUMIN 2.9 g/dl (3.4-5.0); ALK PHOS 59 U/L (45-117); ANION GAP 8 MMOL/L (8-16); BILIRUBIN,TOTAL 0.4 mg/dL (0.2-1); BLOOD UREA NITROGEN 21 mg/dL (7-18); CHLORIDE 92 mmol/L (98-107); CO2 39 mmol/L (21-32); CREATININE 0.5 mg/dL (0.55-1.3); GLUCOSE,RANDOM 183 mg/dL (74-106); POTASSIUM 4.1 mmol/L (3.5-5.1); SGOT/AST 9 U/L (15-37); SGPT/ALT 14 U/L (13-61); SODIUM 140 mmol/L (136-145); TOT PROT 5.8 g/dl (6.4-8.2)
[2018-07-01] MEDS: ALBUTEROL SO4 2.5/IPRATROPIUM 0.5 INH SOL 3 ML VIAL.NEB. NEB SCH ×4 (07:25→21:12)
--- NOTE | 2018-07-01 08:12 | PN ---
Progress Note (short form) - Note Progress Note: CBC, BMP 07/01/18 05:30 07/01/18 05:30 Vital Signs Period Temp Pulse Resp BP Sys/Can Pulse Ox Last 24 Hr 98.5 F-99.8 F 48-83 12-20 105-133/66-80 95-98 Intake & Output 06/28/18 06/29/18 06/30/18 07/01/18 23:59 23:59 23:59 23:59 Intake Total 415 4805 250 Output Total 500 1850 200 Balance -85 2955 50 Weight 340 lb 345 lb 0.375 oz S1S2 RRR Lungs cta anteriorly Abd soft +BS sedated Gore with clear urine forehead hematoma resolving +pedal edema up to shins head cT no bleed, old zygomatic fracture chest CT central consolidation, no PE Imp Respiartory failure hypercapnic Pneumonia with sepsis COPD/NADIRA HTN Obesity Plan iv abx blood cultures pending ventilator support asper ICU team taper sedation iv steroids, nebulizers GI/DVT prophylaxis ID/Pulm consult appreciated
[2018-07-01 08:41] LABS: MAGNESIUM 2.2 mg/dL (1.8-2.4)
[2018-07-01 09:07] LABS: ARTERIAL BLD GAS O2 SATURATION 96.9 % (90-98.9); ARTERIAL BLOOD GAS BASE EXCESS 14.2 meq/l (-2-2); ARTERIAL BLOOD GAS PCO2 52.3 mmHg (35-45); ARTERIAL BLOOD GAS PO2 82.5 mmHg (80-100); ARTERIAL BLOOD GAS pH 7.49 (7.35-7.45)
[2018-07-01 09:08] LABS: ALLENS TEST POSITIVE
[2018-07-01] MEDS: PANTOPRAZOLE SODIUM 40 MG VIAL IVPUSH SCH (09:30)
[2018-07-01] MEDS: ENOXAPARIN NA (PORCINE) 40 MG/0.4 ML DISP.SYRIN SQ SCH (09:30)
[2018-07-01] MEDS ORDERED: FUROSEMIDE 40 MG/4 ML INJECTABLE VIAL ONE (10:41)
--- NOTE | 2018-07-01 10:41 | EKG ---
Test Reason : Blood Pressure : / mmHG Vent. Rate : 059 BPM Atrial Rate : 059 BPM P-R Int : 162 ms QRS Dur : 090 ms QT Int : 446 ms P-R-T Axes : -02 -27 024 degrees QTc Int : 441 ms SINUS BRADYCARDIA OTHERWISE NORMAL ECG WHEN COMPARED WITH ECG OF 29-JUN-2018 13:51, VENT. RATE HAS DECREASED BY 45 BPM Confirmed by STONEY ECHEVERRIA MD ([id number]) on 07/01/2018 10:41:24 AM Referred By: YAIR WILLINGHAM DR Confirmed By:STONEY ECHEVERRIA MD
[2018-07-01 11:32] LABS: ACANTHOCYTES 1+; ANISOCYTOSIS 1+; MACROCYTOSIS 0; PLATELET ESTIMATE DECREASED
[2018-07-01] MEDS ORDERED: FUROSEMIDE 40 MG/4 ML INJECTABLE VIAL IVPUSH ONE (11:53)
--- NOTE | 2018-07-01 11:59 | PN ---
Progress Note, Physician History of Present Illness: Extubated Awake, alert Slightly tachypneic on ventimask Temps down afebrile WBC remains slightly elevated 13K Sputum c/s normal jh Legionella ag (-) - Current Medication List Current Medications: Active Medications Acetaminophen (Ofirmev Injection -) 1,000 mg IVPB Q6H PRN PRN Reason: FEVER Last Admin: 06/30/18 02:51 Dose: 1,000 mg Albuterol Sulfate (Ventolin 0.083% Nebulizer Soln -) 1 amp NEB Q4H PRN PRN Reason: SHORTNESS OF BREATH Albuterol/Ipratropium (Duoneb -) 1 amp NEB RQID EDMUNDO Last Admin: 07/01/18 11:08 Dose: 1 amp Enoxaparin Sodium (Lovenox -) 40 mg SQ DAILY EDMUNDO Last Admin: 07/01/18 09:30 Dose: 40 mg Furosemide (Lasix Injection -) 40 mg IVPUSH ONCE ONE Stop: 07/01/18 11:54 Propofol (Diprivan -) 1,000,000 mcg in 100 mls @ 4.463 mls/hr IVPB TITR EDMUNDO; Protocol Last Titration: 07/01/18 07:02 Dose: 30 mcg/kg/min, 26.78 mls/hr Levofloxacin (Levaquin 750 Mg Premixed Ivpb -) 750 mg in 150 mls @ 100 mls/hr IVPB DAILY EDMUNDO; Protocol Last Admin: 07/01/18 09:30 Dose: 100 mls/hr Vancomycin HCl (Vancomycin (Pre-Docked)) 1,000 mg in 250 mls @ 166.667 mls/hr IVPB BID@0000,1200 EDMUNDO; Protocol Last Admin: 06/30/18 12:36 Dose: 166.667 mls/hr Fentanyl 500 mcg/ Dextrose 100 mls @ 20 mls/hr IVPB TITR EDMUNDO; Protocol Last Admin: 06/30/18 19:30 Dose: 100 mcg/hr, 20 mls/hr Methylprednisolone Sodium Succinate (Solu-Medrol -) 40 mg IVPB Q8H-IV EDMUNDO Pantoprazole Sodium (Protonix Iv) 40 mg IVPUSH DAILY EDMUNDO Last Admin: 07/01/18 09:30 Dose: 40 mg - Objective Vital Signs: Vital Signs Temperature 99 F 07/01/18 10:00 Pulse Rate 50 L 07/01/18 10:00 Respiratory Rate 16 07/01/18 10:00 Blood Pressure 125/84 07/01/18 10:00 O2 Sat by Pulse Oximetry (%) 99 07/01/18 10:00 Constitutional: Yes: No Distress, Obese Eyes: Yes: Conjunctiva Clear Cardiovascular: Yes: Regular Rate and Rhythm, S1, S2 Respiratory: Yes: Diminished Gastrointestinal: Yes: Normal Bowel Sounds, Soft, Abdomen, Obese Edema: Yes Labs: CBC, BMP 07/01/18 05:30 07/01/18 05:30 INR, PTT INR 1.03 (0.83-1.09) 06/29/18 13:46 Assessment/Plan Hypercapneic respiratory failure S/P extubation Pneumonia Fever/ leukocytosis Lactic acidosis Cephalosporin allergy Await c/s Continue empiric levaquin/ vancomycin Discussed with family at bedside
[2018-07-01] MEDS: VANCOMYCIN 1 GRAM (PRE-DOCKED) 1,000 MG/250 ML BAG IVPB SCH (12:22)
--- NOTE | 2018-07-01 12:30 | PN ---
Teaching Attending Note Name of Resident: Derek Macdonald ATTENDING PHYSICIAN STATEMENT I saw and evaluated the patient. I reviewed the resident's note and discussed the case with the resident. I agree with the resident's findings and plan as documented. SUBJECTIVE: Pt seen and examined in the ICU. Remained intubated this AM. Placed on CPAP/PS with good RR and TV and subsequently extubated during rounds. OBJECTIVE: Vital Signs Period Temp Pulse Resp BP Sys/Can Pulse Ox Last 24 Hr 98.5 F-99.8 F 46-67 -18 105-133/66-84 96-99 Intake & Output 06/28/18 06/29/18 06/30/18 07/01/18 23:59 23:59 23:59 23:59 Intake Total 415 4805 250 Output Total 500 1850 200 Balance -85 2955 50 Weight 154.221 kg 156.489 kg Gen: extubated Heart: RRR Lung: decreased breath sounds at the bases Abd: soft, nontender Ext: no edema CBC, BMP 07/01/18 05:30 07/01/18 05:30 Active Medications Acetaminophen (Ofirmev Injection -) 1,000 mg IVPB Q6H PRN PRN Reason: FEVER Last Admin: 06/30/18 02:51 Dose: 1,000 mg Albuterol Sulfate (Ventolin 0.083% Nebulizer Soln -) 1 amp NEB Q4H PRN PRN Reason: SHORTNESS OF BREATH Albuterol/Ipratropium (Duoneb -) 1 amp NEB RQID EDMUNDO Last Admin: 07/01/18 11:08 Dose: 1 amp Enoxaparin Sodium (Lovenox -) 40 mg SQ DAILY EDMUNDO Last Admin: 07/01/18 09:30 Dose: 40 mg Propofol (Diprivan -) 1,000,000 mcg in 100 mls @ 4.463 mls/hr IVPB TITR EDMUNDO; Protocol Last Titration: 07/01/18 07:02 Dose: 30 mcg/kg/min, 26.78 mls/hr Levofloxacin (Levaquin 750 Mg Premixed Ivpb -) 750 mg in 150 mls @ 100 mls/hr IVPB DAILY [facility]; Protocol Last Admin: 07/01/18 09:30 Dose: 100 mls/hr Vancomycin HCl (Vancomycin (Pre-Docked)) 1,000 mg in 250 mls @ 166.667 mls/hr IVPB BID@0000,1200 [facility]; Protocol Last Admin: 07/01/18 12:22 Dose: 166.667 mls/hr Fentanyl 500 mcg/ Dextrose 100 mls @ 20 mls/hr IVPB TITR [facility]; Protocol Last Admin: 06/30/18 19:30 Dose: 100 mcg/hr, 20 mls/hr Methylprednisolone Sodium Succinate (Solu-Medrol -) 40 mg IVPB Q8H-IV EDMUNDO Pantoprazole Sodium (Protonix Iv) 40 mg IVPUSH DAILY [facility] Last Admin: 07/01/18 09:30 Dose: 40 mg ASSESSMENT AND PLAN: Acute on Chronic Hypoxic and Hypercapneic Respiratory Failure Acute COPD Exacerbation Pneumonia Hypertension Morbid Obesity NADIRA/OHS - pt extubated - continue antibiotics - f/u cultures - decrease medrol - inhaled bronchodilators - O2 to keep SpO2 85-92% - BiPAP at night and PRN during day - DVT prophylaxis - continue ICU monitoring critical care time spent in reviewing chart, evaluating patient and formulating plan 35 min
--- NOTE | 2018-07-01 13:10 | PN ---
Physical Exam: SUBJECTIVE: Pt seen and examined in the ICU. Remained intubated this AM. Successful CPAP trial with good RR and TV and subsequently extubated during rounds. OBJECTIVE: Vital Signs Period Temp Pulse Resp BP Sys/Can Pulse Ox Last 24 Hr 98.5 F-99.8 F 46-78 12-18 105-139/66-91 96-99 GENERAL: Morbidly obese male, extubated, AOx3 EYES: No pallor or icterus. EARS, NOSE, THROAT: MMM NECK: no JVD. LUNGS: b/l air entry present, decreased entry at bases, no crackles HEART:RRR, normal S1 and S2 with soft systolic murmur. ABDOMEN:umbilical hernia, abdomen is soft, BS +, UPPER EXTREMITIES: 2+ pulses, warm, well-perfused. No cyanosis. LOWER EXTREMITIES: B/l trace peripheral edema SKIN: Warm, dry, Laboratory Results - last 24 hr 06/30/18 07/01/18 07/01/18 15:10 05:30 05:30 WBC 13.7 H RBC 3.92 L Hgb 10.9 L Hct 33.9 L MCV 86.5 MCH 27.8 MCHC 32.2 RDW 15.8 Plt Count 154 MPV 8.9 Absolute Neuts (auto) 12.8 H Neutrophils % 93.8 H Neutrophils % (Manual) 88.9 H Band Neutrophils % 9.1 Lymphocytes % 3.2 L Lymphocytes % (Manual) 1.0 L Monocytes % 2.9 L Monocytes % (Manual) 0 L D Eosinophils % 0.0 Eosinophils % (Manual) 0.0 Basophils % 0.1 Basophils % (Manual) 0.0 Myelocytes % (Man) 0 Promyelocytes % (Man) 0 Blast Cells % (Manual) 0 Nucleated RBC % 0 Metamyelocytes 0 Hypochromia 0 Platelet Estimate Decreased Platelet Comment Present Polychromasia 1+ Poikilocytosis 0 Anisocytosis 1+ Microcytosis 1+ Macrocytosis 0 Acanthocytes (Spur) 1+ Anticoagulation Therapy Puncture Site No Result Required. ABG pH 7.43 ABG pCO2 at Pt Temp 63.5 H* D ABG pO2 at Pt Temp 70.5 L D ABG HCO3 41.7 H* ABG O2 Sat (Measured) 94.5 ABG O2 Content 14.1 L ABG Base Excess 15.0 H Bebeto Test Positive O2 Delivery Device Oxygen Flow Rate Yes Vent Mode Vent Rate 16 Mechanical Rate 500 PEEP 5.0 Pressure Support Vent Sodium 140 Potassium 4.1 Chloride 92 L Carbon Dioxide 39 H Anion Gap 8 BUN 21 H Creatinine 0.5 L Creat Clearance w eGFR > 60 Random Glucose 183 H Calcium 8.0 L Phosphorus 5.0 H Magnesium 2.2 Total Bilirubin 0.4 AST 9 L ALT 14 Alkaline Phosphatase 59 Total Protein 5.8 L Albumin 2.9 L 07/01/18 08:50 WBC RBC Hgb Hct MCV MCH MCHC RDW Plt Count MPV Absolute Neuts (auto) Neutrophils % Neutrophils % (Manual) Band Neutrophils % Lymphocytes % Lymphocytes % (Manual) Monocytes % Monocytes % (Manual) Eosinophils % Eosinophils % (Manual) Basophils % Basophils % (Manual) Myelocytes % (Man) Promyelocytes % (Man) Blast Cells % (Manual) Nucleated RBC % Metamyelocytes Hypochromia Platelet Estimate Platelet Comment Polychromasia Poikilocytosis Anisocytosis Microcytosis Macrocytosis Acanthocytes (Spur) Anticoagulation Therapy No Result Required. Puncture Site Right radial ABG pH 7.49 H ABG pCO2 at Pt Temp 52.3 H ABG pO2 at Pt Temp 82.5 ABG HCO3 39.5 H ABG O2 Sat (Measured) 96.9 ABG O2 Content 14.3 L ABG Base Excess 14.2 H Bebeto Test Positive O2 Delivery Device Vent Oxygen Flow Rate 60% Vent Mode A/c Vent Rate 16 Mechanical Rate Yes PEEP 5.0 Pressure Support Vent 500 Sodium Potassium Chloride Carbon Dioxide Anion Gap BUN Creatinine Creat Clearance w eGFR Random Glucose Calcium Phosphorus Magnesium Total Bilirubin AST ALT Alkaline Phosphatase Total Protein Albumin Active Medications Generic Name Dose Route Start Last Admin Trade Name Jesse PRN Reason Stop Dose Admin Acetaminophen 1,000 mg 06/29/18 23:41 06/30/18 02:51 Ofirmev Injection - IVPB 1,000 mg Q6H PRN Administration FEVER Albuterol Sulfate 1 amp 06/30/18 10:19 Ventolin 0.083% Nebulizer Soln - NEB Q4H PRN SHORTNESS OF BREATH Albuterol/Ipratropium 1 amp 06/30/18 12:00 07/01/18 11:08 Duoneb - NEB 1 amp RQID EDMUNDO Administration Enoxaparin Sodium 40 mg 06/30/18 10:00 07/01/18 09:30 Lovenox - SQ 40 mg DAILY EDMUNDO Administration Propofol 1,000,000 mcg in 100 mls @ 4.463 mls/hr 06/29/18 16:15 07/01/18 07: 02 Diprivan - IVPB 30 mcg/kg/min TITR EDMUNDO 26.78 mls/hr Titration Protocol 5 MCG/KG/MIN Levofloxacin 750 mg in 150 mls @ 100 mls/hr 06/30/18 07:00 07/01/18 09:30 Levaquin 750 Mg Premixed Ivpb - IVPB 100 mls/hr DAILY EDMUNDO Administration Protocol Vancomycin HCl 1,000 mg in 250 mls @ 166.667 mls/hr 06/30/18 12:15 07/01/18 12:22 Vancomycin (Pre-Docked) IVPB 166.667 mls/hr BID@0000,1200 EDMUNDO Administration Protocol Fentanyl 500 mcg/ Dextrose 100 mls @ 20 mls/hr 06/30/18 19:00 06/30/18 19:30 IVPB 100 mcg/hr TITR EDMUNDO 20 mls/hr Administration Protocol 100 MCG/HR Methylprednisolone Sodium Succinate 40 mg 07/01/18 18:00 Solu-Medrol - IVPB Q8H-IV EDMUNDO Pantoprazole Sodium 40 mg 06/30/18 10:00 07/01/18 09:30 Protonix Iv IVPUSH 40 mg DAILY EDMUNDO Administration ASSESSMENT/PLAN: 62 year old male PMH of COPD on 6L of oxygen; HTN, CHF, was brought in to the ED via EMS due to SOB and s/p mechanical fall. NEURO extubated AOX3, no active issues Head CT 05/30/18: There are remote fractures of the right zygomatic arch and lateral wall of the right orbit. There is no skull fracture. No acute intracranial hemorrhage, No brain mass or midline shift. Respiratory/ID -Acute Hypercapneic respiratory failure likely 2/2 COPD, LLL CAP, and OHS/NADIRA requiring elective Intubation, now s/p extubation -ABG has normalized, lactic has trended down -Received Vancomyin and IV Zosyn in the ED -c/w levaquin and vanc per ID -decrease IV Methylprednisone to 40 mg Q8H EDMUNDO -Albuterol Nebs -Duoneb QID EDMUNDO -CTA 05/30/18: Mild atelectasis and central consolidation is noted in the right lower lobe with associated air bronchograms. No evidence of Pulmonary embolism. There is no thoracic dissection. Mild cardiomegaly. No pericardial effusion. -bcx, flu, legionella neg -f/u Ucx, sputum cx -O2 to keep SpO2 85-92% -BiPAP at night and PRN during day Cardiovascular H/o CHF (Last echo was done 2 yrs ago EF 63 %). BNP 55, trop x 1 negative. Hence unlikely to be in CHF exacerbation. Sinus tachycardia in CXR H/O HTN hypertensive meds were held, pt was hypotensive at admission. will monitor BP and restart as necessary Renal/Endo No active issues FEN no IVF at this time replete prn NPO for now, advance as tolerated Prophylaxis DVT: Lovenox 40 sq daily GI: IV Protonix 40 Daily. Code Status: Full Code c/w ICU monitoring s/p extubation Visit type - Emergency Visit Emergency Visit: Yes ED Registration Date: 06/29/18 Care time: The patient presented to the Emergency Department on the above date and was hospitalized for further evaluation of their emergent condition. - New Patient This patient is new to me today: Yes Date on this admission: 07/01/18 - Critical Care Critical Care patient: Yes Total Critical Care Time (in minutes): 38 Critical Care Statement: The care of this patient involved high complexity decision making to prevent further life threatening deterioration of the patient 's condition and/or to evaluate & treat vital organ system(s) failure or risk of failure.
[2018-07-01] MEDS ORDERED: diphenhydrAMINE HCL 25 MG CAPSULE (FP) PO ONE (14:15)
[2018-07-01] MEDS ORDERED: HYDROCORTISONE 0.5% TOPICAL CREAM 30 GM TUBE TP ONE (15:00)
--- NOTE | 2018-07-01 15:46 | ECHO ---
Name: MAINRAMONAADAM CONLEY, Exam:Adult Echocardiogram Study Date: 07/01/2018 02:41 PM Age: 62 yrs Reason For Study: R/O CHF LVEF Height: 72 in Weight: 340 lb BSA: 2.7 m2 BP: 139/87 mmHg MMode/2D Measurements & Calculations IVSd: 1.0 cm Ao root diam: 3.3 cm LVIDd: 5.2 cm LA dimension: 3.5 cm LVIDs: 3.9 cm LVPWd: 1.0 cm EDV(Teich): 131.8 ml ESV(Teich): 65.9 ml Doppler Measurements & Calculations MV E max rao: 86.9 cm/sec AI P1/2t: 349.2 msec MV A max rao: 88.8 cm/sec MV E/A: 0.98 MV dec time: 0.21 sec AI max rao: 277.5 cm/sec MR max rao: 214.2 cm/sec AI max P.8 mmHg MR max P.3 mmHg AI dec slope: 232.8 cm/sec2 TR max rao: 286.9 cm/sec PI end-d rao: 141.2 cm/sec TR max P.0 mmHg Med Peak E' Rao: 8.1 cm/sec Med E/e': 10.7 Lat Peak E' Rao: 8.5 cm/sec Lat E/e': 10.3 Procedure A complete two-dimensional transthoracic echocardiogram was performed (2D, M-mode, Doppler and color flow Doppler). Left Ventricle The left ventricle is normal in size. Left ventricular systolic function is normal. Ejection Fraction = 55- 60%. No regional wall motion abnormalities noted. Right Ventricle The right ventricle is normal size. The right ventricular systolic function is normal. Atria The left atrial size is normal. Right atrial size is normal. Mitral Valve There is mild mitral annular calcification. There is no mitral regurgitation noted. Tricuspid Valve The tricuspid valve is normal in structure and function. Pulmonary artery systolic pressure is at pratima st 42 mmHg if RA pressure is assumed 3 mmHg. Aortic Valve There is mild aortic sclerosis.;. No aortic regurgitation is present. Pulmonic Valve The pulmonic valve is not well visualized. Great Vessels The aortic root is normal size. Pericardium/Pleura There is no pericardial effusion. Interpretation Summary The left ventricle is normal in size. Left ventricular systolic function is normal. No regional wall motion abnormalities noted. Ejection Fraction = 55-60%. The right ventricular systolic function is normal. The left atrial size is normal. Right atrial size is normal. There is mild mitral annular calcification. Pulmonary artery systolic pressure is at least 42 mmHg if RA pressure is assumed 3 mmHg There is mild aortic sclerosis. No significant valvular regurgitations are seen There is no pericardial effusion. Previous study is not available for comparison Ash Lima MD 07/01/2018 03:46 PM
--- NOTE | 2018-07-01 18:28 | PN ---
Progress Note (short form) - Note Progress Note: Patient tolerated apple sauce at bed side. Will order soft diet now.
[2018-07-02] MEDS: VANCOMYCIN 1 GRAM (PRE-DOCKED) 1,000 MG/250 ML BAG IVPB SCH ×3 (00:09→12:57)
[2018-07-02] MEDS: methylPREDNISolone NA SUCC 40 MG/1 ML VIAL IVPB SCH ×3 (03:01→18:25)
[2018-07-02 05:48] LABS: BASO % 0.1 % (0-2.0); HEMATOCRIT 39.7 % (35.4-49); HEMOGLOBIN 12.5 GM/dL (11.7-16.9); LYMPH % 3.1 % (8-40); MCH 27.4 pg (25.7-33.7); MCHC 31.6 g/dl (32.0-35.9); MEAN CELL VOLUME 86.8 fl (80-96); MEAN PLT VOLUME 8.8 fl (7.5-11.1); MONO % 4.6 % (3.8-10.2); NEUT % 92.2 % (42.8-82.8); PLATELET COUNT 150 K/MM3 (134-434); RBC 4.57 M/mm3 (4.00-5.60); RDW 15.8 % (11.9-15.9)
[2018-07-02 06:16] LABS: ALBUMIN 3.2 g/dl (3.4-5.0); ALK PHOS 65 U/L (45-117); ANION GAP 2 MMOL/L (8-16); BILIRUBIN,TOTAL 0.7 mg/dL (0.2-1); BLOOD UREA NITROGEN 21 mg/dL (7-18); CALCIUM 8.7 mg/dL (8.5-10.1); CHLORIDE 95 mmol/L (98-107); CO2 43 mmol/L (21-32); CREATININE 0.7 mg/dL (0.55-1.3); GLUCOSE,RANDOM 173 mg/dL (74-106); MAGNESIUM 2.5 mg/dL (1.8-2.4); PHOSPHOROUS 4.7 mg/dL (2.5-4.9); POTASSIUM 3.7 mmol/L (3.5-5.1); SGOT/AST 25 U/L (15-37); SGPT/ALT 21 U/L (13-61); SODIUM 141 mmol/L (136-145); TOT PROT 6.5 g/dl (6.4-8.2)
[2018-07-02] MEDS: ALBUTEROL SO4 2.5/IPRATROPIUM 0.5 INH SOL 3 ML VIAL.NEB. NEB SCH ×4 (07:40→20:35)
[2018-07-02] MEDS ORDERED: ACETAMINOPHEN 325 MG TABLET (FP) PO PRN (08:56)
--- NOTE | 2018-07-02 09:01 | PN ---
Progress Note (short form) - Note Progress Note: extubated yesterday tolerating apple sauce on BIPAP at night Vital Signs Period Temp Pulse Resp BP Sys/Can Pulse Ox Last 24 Hr 98 F-99.2 F 50-80 16-27 125-156/76-96 94-99 CBC, BMP 07/02/18 05:30 07/02/18 05:30 S1S2 RRR Lungs cta anteriorly Abd soft +BS sedated Gore with clear urine forehead hematoma resolving +pedal edema up to shins Imp Respiratory failure hypercapnic Pneumonia with sepsis COPD/NADIRA HTN Obesity Plan iv abx blood cultures negative so far iv steroid taper nebulizers GI/DVT prophylaxis resume losartan [facility] transfer [facility] with pulmonary PT eval if oob dc simi ID/Pulm consult appreciated
[2018-07-02] MEDS ORDERED: PT OWN MED DRAWER 7, Y5N ONE (10:50)
[2018-07-02] MEDS: ENOXAPARIN NA (PORCINE) 40 MG/0.4 ML DISP.SYRIN SQ SCH (10:59)
[2018-07-02] MEDS: PANTOPRAZOLE 40 MG TABLET (FP) PO SCH (11:00)
[2018-07-02] MEDS: LOSARTAN POTASSIUM 50 MG TABLET (FP) PO SCH (11:00)
--- NOTE | 2018-07-02 11:09 | PN ---
Physical Exam: SUBJECTIVE: Pt seen and examined in the ICU. Remains extubated. tolerating PO. bipap/cpap at night for NADIRA OBJECTIVE: Vital Signs Period Temp Pulse Resp BP Sys/Can Pulse Ox Last 24 Hr 98 F-99.2 F 54-80 16-27 133-160/76-96 94-94 GENERAL: Morbidly obese male, extubated, AOx3 EYES: No pallor or icterus. EARS, NOSE, THROAT: MMM NECK: no JVD. LUNGS: b/l air entry present, decreased entry at bases, no crackles HEART:RRR, normal S1 and S2 with soft systolic murmur. ABDOMEN:umbilical hernia, abdomen is soft, BS +, UPPER EXTREMITIES: 2+ pulses, warm, well-perfused. No cyanosis. LOWER EXTREMITIES: B/l trace peripheral edema SKIN: Warm, dry, Laboratory Results - last 24 hr 07/01/18 07/02/18 07/02/18 05:30 05:30 05:30 WBC 13.0 H RBC 4.57 Hgb 12.5 Hct 39.7 D MCV 86.8 MCH 27.4 MCHC 31.6 L RDW 15.8 Plt Count 150 MPV 8.8 Absolute Neuts (auto) 12.0 H Neutrophils % 92.2 H Neutrophils % (Manual) 88.9 H Band Neutrophils % 9.1 Lymphocytes % 3.1 L Lymphocytes % (Manual) 1.0 L Monocytes % 4.6 Monocytes % (Manual) 0 L D Eosinophils % 0.0 Eosinophils % (Manual) 0.0 Basophils % 0.1 Basophils % (Manual) 0.0 Myelocytes % (Man) 0 Promyelocytes % (Man) 0 Blast Cells % (Manual) 0 Nucleated RBC % 0 Metamyelocytes 0 Hypochromia 0 Platelet Estimate Decreased Platelet Comment Present Polychromasia 1+ Poikilocytosis 0 Anisocytosis 1+ Microcytosis 1+ Macrocytosis 0 Acanthocytes (Spur) 1+ Sodium 141 Potassium 3.7 Chloride 95 L Carbon Dioxide 43 H Anion Gap 2 L BUN 21 H Creatinine 0.7 Creat Clearance w eGFR > 60 Random Glucose 173 H Calcium 8.7 Phosphorus 4.7 Magnesium 2.5 H Total Bilirubin 0.7 AST 25 ALT 21 Alkaline Phosphatase 65 Total Protein 6.5 Albumin 3.2 L Active Medications Generic Name Dose Route Start Last Admin Trade Name Freq PRN Reason Stop Dose Admin Acetaminophen 650 mg 11/13/18 08:56 Tylenol - PO Q6H PRN FEVER Albuterol Sulfate 1 amp 06/30/18 10:19 Ventolin 0.083% Nebulizer Soln - NEB Q4H PRN SHORTNESS OF BREATH Albuterol/Ipratropium 1 amp 06/30/18 12:00 07/02/18 07:40 Duoneb - NEB 1 amp RQID EDMUNDO Administration Enoxaparin Sodium 40 mg 06/30/18 10:00 07/02/18 10:59 Lovenox - SQ 40 mg DAILY EDMUNDO Administration Levofloxacin 750 mg in 150 mls @ 100 mls/hr 06/30/18 07:00 07/02/18 10:59 Levaquin 750 Mg Premixed Ivpb - IVPB 100 mls/hr DAILY EDMUNDO Administration Protocol Vancomycin HCl 1,000 mg in 250 mls @ 166.667 mls/hr 06/30/18 12:15 07/02/18 00:09 Vancomycin (Pre-Docked) IVPB 166.667 mls/hr BID@0000,1200 EDMUNDO Administration Protocol Losartan Potassium 100 mg 07/02/18 10:00 07/02/18 11:00 Cozaar - PO 100 mg DAILY EDMUNDO Administration Methylprednisolone Sodium Succinate 40 mg 07/01/18 18:00 07/02/18 11:00 Solu-Medrol - IVPB 40 mg Q8H-IV EDMUNDO Administration Pantoprazole Sodium 40 mg 07/02/18 10:00 07/02/18 11:00 Protonix - PO 40 mg DAILY EDMUNDO Administration ASSESSMENT/PLAN: 62 year old male PMH of COPD on 6L of oxygen; HTN, CHF, was brought in to the ED via EMS due to SOB and s/p mechanical fall. NEURO extubated AOX3, no active issues Head CT 05/30/18: There are remote fractures of the right zygomatic arch and lateral wall of the right orbit. There is no skull fracture. No acute intracranial hemorrhage, No brain mass or midline shift. Respiratory/ID -Acute Hypercapneic respiratory failure likely 2/2 COPD, LLL CAP, and OHS/NADIRA requiring elective Intubation, now s/p extubation -ABG has normalized, lactic has trended down -Received Vancomyin and IV Zosyn in the ED -c/w levaquin and vanc per ID -c/w IV Methylprednisone to 40 mg Q8H EDMUNDO -Albuterol Nebs -Duoneb QID EDMUNDO -CTA 05/30/18: Mild atelectasis and central consolidation is noted in the right lower lobe with associated air bronchograms. No evidence of Pulmonary embolism. There is no thoracic dissection. Mild cardiomegaly. No pericardial effusion. -bcx, flu, legionella, Ucx, sputum cx neg -O2 to keep SpO2 85-92% -BiPAP at night and PRN during day Cardiovascular H/o CHF (Last echo was done 2 yrs ago EF 63 %). BNP 55, trop x 1 negative. Hence unlikely to be in CHF exacerbation. Sinus tachycardia in CXR H/O HTN resume losartan Renal/Endo No active issues FEN no IVF at this time replete prn soft diet, advance as tolerated Prophylaxis DVT: Lovenox 40 sq daily GI: IV Protonix 40 Daily. Code Status: Full Code pt stable and ready for transfer to floor. further care per primary team/PCP Visit type - Emergency Visit Emergency Visit: Yes ED Registration Date: 06/29/18 Care time: The patient presented to the Emergency Department on the above date and was hospitalized for further evaluation of their emergent condition. - New Patient This patient is new to me today: Yes Date on this admission: 07/02/18 - Critical Care Critical Care patient: Yes Total Critical Care Time (in minutes): 36 Critical Care Statement: The care of this patient involved high complexity decision making to prevent further life threatening deterioration of the patient 's condition and/or to evaluate & treat vital organ system(s) failure or risk of failure.
--- NOTE | 2018-07-02 11:27 | PN ---
Progress Note, Physician History of Present Illness: Remains extubated Awake, alert Slightly tachypneic on nasal cannula Temps down afebrile WBC remains slightly elevated 13K Sputum c/s normal jh Legionella ag (-) - Current Medication List Current Medications: Active Medications Acetaminophen (Tylenol -) 650 mg PO Q6H PRN PRN Reason: FEVER Albuterol Sulfate (Ventolin 0.083% Nebulizer Soln -) 1 amp NEB Q4H PRN PRN Reason: SHORTNESS OF BREATH Albuterol/Ipratropium (Duoneb -) 1 amp NEB RQID [facility] Last Admin: 07/02/18 07:40 Dose: 1 amp Enoxaparin Sodium (Lovenox -) 40 mg SQ DAILY [facility] Last Admin: 07/02/18 10:59 Dose: 40 mg Levofloxacin (Levaquin 750 Mg Premixed Ivpb -) 750 mg in 150 mls @ 100 mls/hr IVPB DAILY [facility]; Protocol Last Admin: 07/02/18 10:59 Dose: 100 mls/hr Vancomycin HCl (Vancomycin (Pre-Docked)) 1,000 mg in 250 mls @ 166.667 mls/hr IVPB BID@0000,1200 [facility]; Protocol Last Admin: 07/02/18 00:09 Dose: 166.667 mls/hr Losartan Potassium (Cozaar -) 100 mg PO DAILY [facility] Last Admin: 07/02/18 11:00 Dose: 100 mg Methylprednisolone Sodium Succinate (Solu-Medrol -) 40 mg IVPB Q8H-IV EDMUNDO Last Admin: 07/02/18 11:00 Dose: 40 mg Pantoprazole Sodium (Protonix -) 40 mg PO DAILY [facility] Last Admin: 07/02/18 11:00 Dose: 40 mg - Objective Vital Signs: Vital Signs Temperature 99.0 F 07/02/18 10:00 Pulse Rate 69 07/02/18 10:00 Respiratory Rate 26 H 07/02/18 08:00 Blood Pressure 160/93 07/02/18 10:00 O2 Sat by Pulse Oximetry (%) 94 L 07/02/18 05:00 Constitutional: Yes: No Distress, Obese Eyes: Yes: Conjunctiva Clear Cardiovascular: Yes: Regular Rate and Rhythm, S1, S2 Respiratory: Yes: Diminished Gastrointestinal: Yes: Normal Bowel Sounds, Soft, Abdomen, Obese, Other (+ ventral/ umbilical hernia). No: Tenderness Edema: Yes Labs: CBC, BMP 07/02/18 05:30 07/02/18 05:30 INR, PTT INR 1.03 (0.83-1.09) 06/29/18 13:46 Assessment/Plan Hypercapneic respiratory failure S/P extubation Pneumonia Fever/ leukocytosis Lactic acidosis Cephalosporin allergy Continue empiric levaquin/ vancomycin Discussed with family at bedside
--- NOTE | 2018-07-02 11:34 | PN ---
Teaching Attending Note Name of Resident: Derek Macdonald ATTENDING PHYSICIAN STATEMENT I saw and evaluated the patient. I reviewed the resident's note and discussed the case with the resident. I agree with the resident's findings and plan as documented. SUBJECTIVE: Pt seen and examined in the ICU. Extubated yesterday without incident. States breathing better today. Cough and wheezing improving. No fevers recorded. OBJECTIVE: Vital Signs Period Temp Pulse Resp BP Sys/Can Pulse Ox Last 24 Hr 98 F-99.2 F 54-80 16-27 133-160/76-96 94-94 Intake & Output 06/29/18 06/30/18 07/01/18 07/02/18 23:59 23:59 23:59 23:59 Intake Total 415 4805 990 490 Output Total 500 1850 2600 1200 Balance -85 2955 -1610 -710 Weight 154.221 kg 156.489 kg Gen: NAD at rest Heart: RRR Lung: distant breath sounds, no wheezes Abd: soft, nontender Ext: no edema CBC, BMP 07/02/18 05:30 07/02/18 05:30 Active Medications Acetaminophen (Tylenol -) 650 mg PO Q6H PRN PRN Reason: FEVER Albuterol Sulfate (Ventolin 0.083% Nebulizer Soln -) 1 amp NEB Q4H PRN PRN Reason: SHORTNESS OF BREATH Albuterol/Ipratropium (Duoneb -) 1 amp NEB RQID EDMUNDO Last Admin: 07/02/18 07:40 Dose: 1 amp Enoxaparin Sodium (Lovenox -) 40 mg SQ DAILY [facility] Last Admin: 07/02/18 10:59 Dose: 40 mg Levofloxacin (Levaquin 750 Mg Premixed Ivpb -) 750 mg in 150 mls @ 100 mls/hr IVPB DAILY [facility]; Protocol Last Admin: 07/02/18 10:59 Dose: 100 mls/hr Vancomycin HCl (Vancomycin (Pre-Docked)) 1,000 mg in 250 mls @ 166.667 mls/hr IVPB BID@0000,1200 [facility]; Protocol Last Admin: 07/02/18 00:09 Dose: 166.667 mls/hr Losartan Potassium (Cozaar -) 100 mg PO DAILY [facility] Last Admin: 07/02/18 11:00 Dose: 100 mg Methylprednisolone Sodium Succinate (Solu-Medrol -) 40 mg IVPB Q8H-IV EDMUNDO Last Admin: 07/02/18 11:00 Dose: 40 mg Pantoprazole Sodium (Protonix -) 40 mg PO DAILY [facility] Last Admin: 07/02/18 11:00 Dose: 40 mg ASSESSMENT AND PLAN: Acute on Chronic Hypoxic and Hypercapneic Respiratory Failure improving Acute COPD Exacerbation Pneumonia Hypertension Morbid Obesity NADIRA/OHS - continue antibiotics - f/u cultures - medrol taper - inhaled bronchodilators - O2 to keep SpO2 85-92% - BiPAP at night and PRN during day - DVT prophylaxis - will need outpt PFTs and f/u critical care time spent in reviewing chart, evaluating patient and formulating plan 35 min
[2018-07-02 11:43] LABS: ACANTHOCYTES 0; ANISOCYTOSIS 0; HELMET CELLS 0; HOWELL-JOLLY BODIES 0; MACROCYTOSIS 0; OVALOCYTE 0; ROULEAU 0; SICKELED CELLS 0; TARGET CELLS 0; TEAR DROP CELLS 0; TOXIC GRANULATION 0
[2018-07-02 12:09] LABS: PLATELET ESTIMATE ADEQUATE
[2018-07-03] MEDS: VANCOMYCIN 1 GRAM (PRE-DOCKED) 1,000 MG/250 ML BAG IVPB SCH ×2 (00:35→12:42)
[2018-07-03] MEDS: methylPREDNISolone NA SUCC 40 MG/1 ML VIAL IVPB SCH (02:00)
[2018-07-03 06:17] LABS: BASO % 0.1 % (0-2.0); HEMATOCRIT 38.9 % (35.4-49); HEMOGLOBIN 12.3 GM/dL (11.7-16.9); LYMPH % 2.9 % (8-40); MCH 27.7 pg (25.7-33.7); MCHC 31.7 g/dl (32.0-35.9); MEAN CELL VOLUME 87.3 fl (80-96); MEAN PLT VOLUME 8.7 fl (7.5-11.1); MONO % 4.1 % (3.8-10.2); NEUT % 92.9 % (42.8-82.8); PLATELET COUNT 150 K/MM3 (134-434); RBC 4.45 M/mm3 (4.00-5.60); RDW 15.7 % (11.9-15.9); WHITE BLOOD COUNT 12.6 K/mm3 (4.0-10.0)
[2018-07-03 06:51] LABS: ALBUMIN 3.2 g/dl (3.4-5.0); ALK PHOS 61 U/L (45-117); ANION GAP 4 MMOL/L (8-16); BILIRUBIN,TOTAL 0.7 mg/dL (0.2-1); BLOOD UREA NITROGEN 19 mg/dL (7-18); CALCIUM 8.5 mg/dL (8.5-10.1); CHLORIDE 96 mmol/L (98-107); CO2 40 mmol/L (21-32); CREATININE 0.6 mg/dL (0.55-1.3); GLUCOSE,RANDOM 184 mg/dL (74-106); MAGNESIUM 2.4 mg/dL (1.8-2.4); SGOT/AST 24 U/L (15-37); SGPT/ALT 37 U/L (13-61); SODIUM 140 mmol/L (136-145); TOT PROT 6.5 g/dl (6.4-8.2)
[2018-07-03] MEDS ORDERED: PT OWN MED DRAWER 7, Y5N ONE (08:16)
[2018-07-03] MEDS: ALBUTEROL SO4 2.5/IPRATROPIUM 0.5 INH SOL 3 ML VIAL.NEB. NEB SCH ×4 (08:20→20:38)
--- NOTE | 2018-07-03 08:53 | PN ---
Progress Note (short form) - Note Progress Note: Desaturating over night-BIPAP fell off his face CBC, BMP 07/03/18 05:30 07/03/18 05:30 Vital Signs Period Temp Pulse Resp BP Sys/Can Pulse Ox Last 24 Hr 98.2 F-99.0 F 60-77 15-23 128-160/82-95 92-94 S1S2 RRR Lungs cta anteriorly Abd soft +BS [place] with clear urine forehead hematoma resolving tr pedal edema aa0x3 no focal deficits Imp Respiratory failure hypercapnic Pneumonia with sepsis COPD/NADIRA HTN Obesity Plan iv abx as per ID iv steroid taper nebulizers GI/DVT prophylaxis losartan can transfer to floor PT eval dc belcher ID/Pulm consult appreciated
[2018-07-03] MEDS: LOSARTAN POTASSIUM 50 MG TABLET (FP) PO SCH (09:45)
[2018-07-03] MEDS: PANTOPRAZOLE 40 MG TABLET (FP) PO SCH (09:46)
[2018-07-03] MEDS: ENOXAPARIN NA (PORCINE) 40 MG/0.4 ML DISP.SYRIN SQ SCH (09:46)
[2018-07-03] MEDS ORDERED: LACTOBACILLUS ACIDOPHILUS 1 TABLET PO SCH (10:00)
[2018-07-03] MEDS: methylPREDNISolone NA SUCC 40 MG/1 ML VIAL IVPUSH SCH ×2 (10:45→21:37)
--- NOTE | 2018-07-03 12:08 | PN ---
Teaching Attending Note Name of Resident: Derek Macdonald ATTENDING PHYSICIAN STATEMENT I saw and evaluated the patient. I reviewed the resident's note and discussed the case with the resident. I agree with the resident's findings and plan as documented. SUBJECTIVE: Pt seen and examined in the ICU. Breathing continues to improve. Less cough and wheezing. No fevers recorded. c/o diarrhea. OBJECTIVE: Vital Signs Period Temp Pulse Resp BP Sys/Can Pulse Ox Last 24 Hr 98.2 F-98.8 F 56-91 15-24 128-169/82-96 92-96 Intake & Output 06/30/18 07/01/18 07/02/18 07/03/18 23:59 23:59 23:59 23:59 Intake Total 4805 990 890 400 Output Total 1850 2600 2000 300 Balance 2955 -1610 -1110 100 Weight 156.489 kg 154.448 kg Gen: NAD in chair Heart: RRR Lung: distant breath sounds, no wheezes Abd: soft, nontender Ext: distal edema CBC, BMP 07/03/18 05:30 07/03/18 05:30 Active Medications Acetaminophen (Tylenol -) 650 mg PO Q6H PRN PRN Reason: FEVER Albuterol Sulfate (Ventolin 0.083% Nebulizer Soln -) 1 amp NEB Q4H PRN PRN Reason: SHORTNESS OF BREATH Albuterol/Ipratropium (Duoneb -) 1 amp NEB RQID [facility] Last Admin: 07/03/18 11:27 Dose: 1 amp Enoxaparin Sodium (Lovenox -) 40 mg SQ DAILY [facility] Last Admin: 07/03/18 09:46 Dose: 40 mg Levofloxacin (Levaquin 750 Mg Premixed Ivpb -) 750 mg in 150 mls @ 100 mls/hr IVPB DAILY [facility]; Protocol Last Admin: 07/03/18 09:45 Dose: 100 mls/hr Vancomycin HCl (Vancomycin (Pre-Docked)) 1,000 mg in 250 mls @ 166.667 mls/hr IVPB BID@0000,1200 [facility]; Protocol Last Admin: 07/03/18 00:35 Dose: 166.667 mls/hr Lactobacillus Acidophilus (Bacid -) 1 tab PO DAILY [facility] Last Admin: 07/03/18 10:45 Dose: 1 tab Losartan Potassium (Cozaar -) 100 mg PO DAILY [facility] Last Admin: 07/03/18 09:45 Dose: 100 mg Methylprednisolone Sodium Succinate (Solu-Medrol -) 40 mg IVPUSH BID [facility] Last Admin: 07/03/18 10:45 Dose: 40 mg Pantoprazole Sodium (Protonix -) 40 mg PO DAILY [facility] Last Admin: 07/03/18 09:46 Dose: 40 mg ASSESSMENT AND PLAN: Acute on Chronic Hypoxic and Hypercapneic Respiratory Failure improving Acute COPD Exacerbation Pneumonia Hypertension Morbid Obesity NADIRA/OHS - continue antibiotics - start probiotic - medrol taper - inhaled bronchodilators - O2 to keep SpO2 85-92% - BiPAP at night and PRN during day - DVT prophylaxis - will need outpt PFTs and f/u
--- NOTE | 2018-07-03 13:56 | PN ---
Physical Exam: SUBJECTIVE: Patient seen and examined in the ICU. remains extubated. c/o diarrhea.. denies sob, cp. tolerating PO. bipap/cpap at night for NADIRA. Desaturating over night-BIPAP fell off his face. OBJECTIVE: Vital Signs Period Temp Pulse Resp BP Sys/Can Pulse Ox Last 24 Hr 98.2 F-98.8 F 56-91 15-24 128-169/90-96 94-96 GENERAL: Morbidly obese male, extubated, AOx3 EYES: No pallor or icterus. EARS, NOSE, THROAT: MMM NECK: no JVD. LUNGS: b/l air entry present, decreased entry at bases, improving, no crackles HEART:RRR, normal S1 and S2 with soft systolic murmur. ABDOMEN:umbilical hernia, abdomen is soft, BS +, UPPER EXTREMITIES: 2+ pulses, warm, well-perfused. No cyanosis. LOWER EXTREMITIES: B/l trace peripheral edema SKIN: Warm, dry, Laboratory Results - last 24 hr 07/03/18 07/03/18 07/03/18 05:30 05:30 05:30 WBC 12.6 H RBC 4.45 Hgb 12.3 Hct 38.9 MCV 87.3 MCH 27.7 MCHC 31.7 L RDW 15.7 Plt Count 150 MPV 8.7 Absolute Neuts (auto) 11.7 H Neutrophils % 92.9 H Lymphocytes % 2.9 L Monocytes % 4.1 Eosinophils % 0.0 Basophils % 0.1 Nucleated RBC % 0 Sodium 140 Potassium 4.0 Chloride 96 L Carbon Dioxide 40 H Anion Gap 4 L BUN 19 H Creatinine 0.6 Creat Clearance w eGFR > 60 Random Glucose 184 H Calcium 8.5 Phosphorus 4.0 Magnesium 2.4 Total Bilirubin 0.7 AST 24 ALT 37 Alkaline Phosphatase 61 Total Protein 6.5 Albumin 3.2 L Random Vancomycin 9.6 L Vancomycin Pre-Dose 07/03/18 10:44 WBC RBC Hgb Hct MCV MCH MCHC RDW Plt Count MPV Absolute Neuts (auto) Neutrophils % Lymphocytes % Monocytes % Eosinophils % Basophils % Nucleated RBC % Sodium Potassium Chloride Carbon Dioxide Anion Gap BUN Creatinine Creat Clearance w eGFR Random Glucose Calcium Phosphorus Magnesium Total Bilirubin AST ALT Alkaline Phosphatase Total Protein Albumin Random Vancomycin Vancomycin Pre-Dose 8.8 L Active Medications Generic Name Dose Route Start Last Admin Trade Name Freq PRN Reason Stop Dose Admin Acetaminophen 650 mg 07/02/18 08:56 Tylenol - PO Q6H PRN FEVER Albuterol Sulfate 1 amp 06/30/18 10:19 Ventolin 0.083% Nebulizer Soln - NEB Q4H PRN SHORTNESS OF BREATH Albuterol/Ipratropium 1 amp 06/30/18 12:00 07/03/18 11:27 Duoneb - NEB 1 amp RQID EDMUNDO Administration Enoxaparin Sodium 40 mg 06/30/18 10:00 07/03/18 09:46 Lovenox - SQ 40 mg DAILY EDMUNDO Administration Levofloxacin 750 mg in 150 mls @ 100 mls/hr 06/30/18 07:00 07/03/18 09:45 Levaquin 750 Mg Premixed Ivpb - IVPB 100 mls/hr DAILY EDMUNDO Administration Protocol Vancomycin HCl 1,000 mg in 250 mls @ 166.667 mls/hr 06/30/18 12:15 07/03/18 12:42 Vancomycin (Pre-Docked) IVPB 166.667 mls/hr BID@0000,1200 EDMUNDO Administration Protocol Lactobacillus Acidophilus 1 tab 07/03/18 10:00 07/03/18 10:45 Bacid - PO 1 tab DAILY EDMUNDO Administration Losartan Potassium 100 mg 07/02/18 10:00 07/03/18 09:45 Cozaar - PO 100 mg DAILY EDMUNDO Administration Methylprednisolone Sodium Succinate 40 mg 07/03/18 10:00 07/03/18 10:45 Solu-Medrol - IVPUSH 40 mg BID EDMUNDO Administration Pantoprazole Sodium 40 mg 07/02/18 10:00 07/03/18 09:46 Protonix - PO 40 mg DAILY EDMUNDO Administration Pneumococcal Polyvalent Vaccine 0.5 ml 07/03/18 14:30 Pneumovax - IM 07/03/18 14:31 .ONCE ONE ASSESSMENT/PLAN: 62 year old male PMH of COPD on 6L of oxygen; HTN, CHF, was brought in to the ED via EMS due to SOB and s/p mechanical fall. NEURO extubated AOX3, no active issues Head CT 05/30/18: There are remote fractures of the right zygomatic arch and lateral wall of the right orbit. There is no skull fracture. No acute intracranial hemorrhage, No brain mass or midline shift. Respiratory/ID -Acute Hypercapneic respiratory failure likely 2/2 COPD, LLL CAP, and OHS/NADIRA requiring elective Intubation, now s/p extubation -ABG has normalized, lactic has trended down -Received Vancomyin and IV Zosyn in the ED -c/w levaquin and vanc per ID -decrease IV Methylprednisone to 40 mg Q12H EDMUNDO -Albuterol Nebs -Duoneb QID EDMUNDO -CTA 05/30/18: Mild atelectasis and central consolidation is noted in the right lower lobe with associated air bronchograms. No evidence of Pulmonary embolism. There is no thoracic dissection. Mild cardiomegaly. No pericardial effusion. -bcx, flu, legionella, Ucx, sputum cx neg -O2 to keep SpO2 85-92% -BiPAP at night and PRN during day -may need new bipap mask at home -will need outpt PFTs and f/u Cardiovascular H/o CHF (Last echo was done 2 yrs ago EF 63 %). BNP 55, trop x 1 negative. Hence unlikely to be in CHF exacerbation. Sinus tachycardia in CXR H/O HTN c/w losartan GI c/o diarrhea start probiotic Renal/Endo No active issues FEN no IVF at this time replete prn fat/chol/Na restricted diet Prophylaxis DVT: Lovenox 40 sq daily GI: IV Protonix 40 Daily. Code Status: Full Code pt stable and ready for transfer to floor. further care per primary team/PCP Visit type - Emergency Visit Emergency Visit: Yes ED Registration Date: 06/29/18 Care time: The patient presented to the Emergency Department on the above date and was hospitalized for further evaluation of their emergent condition. - New Patient This patient is new to me today: Yes Date on this admission: 07/03/18 - Critical Care Critical Care patient: Yes Total Critical Care Time (in minutes): 38 Critical Care Statement: The care of this patient involved high complexity decision making to prevent further life threatening deterioration of the patient 's condition and/or to evaluate & treat vital organ system(s) failure or risk of failure.
[2018-07-03] MEDS ORDERED: PNEUMOCOCCAL 23 VACCINE 0.5 ML VIAL IM ONE (14:30)
[2018-07-03 14:43] VITALS: BMI 46.0
[2018-07-03 14:59] LABS: ACANTHOCYTES 0; ANISOCYTOSIS 0; HELMET CELLS 0; HOWELL-JOLLY BODIES 0; MACROCYTOSIS 0; OVALOCYTE 0; ROULEAU 0; SICKELED CELLS 0; TARGET CELLS 0; TEAR DROP CELLS 0; TOXIC GRANULATION 0
[2018-07-03 15:07] LABS: PLATELET ESTIMATE ADEQUATE
[2018-07-04] MEDS: VANCOMYCIN 1 GRAM (PRE-DOCKED) 1,000 MG/250 ML BAG IVPB SCH (00:51)
[2018-07-04] MEDS ORDERED: ACETAMINOPHEN 325 MG TABLET (FP) PO PRN (01:08)
[2018-07-04] MEDS ORDERED: ALBUTEROL SO4 0.083% IH SOL 2.5 MG/3 ML VIAL.NEB. NEB PRN (01:08)
[2018-07-04] MEDS: ALBUTEROL SO4 2.5/IPRATROPIUM 0.5 INH SOL 3 ML VIAL.NEB. NEB SCH ×4 (07:42→20:15)
--- NOTE | 2018-07-04 08:41 | PN ---
Progress Note (short form) - Note Progress Note: Vital Signs Period Temp Pulse Resp BP Sys/Can Pulse Ox Last 24 Hr 97.8 F-98.8 F 59-94 20-24 127-169/73-110 95-96 S1S2 RRR Lungs cta anteriorly Abd soft +BS no pedal edema [id number] no focal deficits Imp Respiratory failure hypercapnic Pneumonia with sepsis COPD/NADIRA HTN Obesity Plan iv abx as per ID iv steroid taper nebulizers GI/DVT prophylaxis losartan PT eval ID/Pulm consult appreciated dc planning in am
[2018-07-04] MEDS ORDERED: PT OWN MED DRAWER 7, Y5N ONE (09:17)
[2018-07-04] MEDS: methylPREDNISolone NA SUCC 40 MG/1 ML VIAL IVPUSH SCH ×2 (09:38→21:12)
[2018-07-04] MEDS: ENOXAPARIN NA (PORCINE) 40 MG/0.4 ML DISP.SYRIN SQ SCH (09:38)
[2018-07-04] MEDS: LACTOBACILLUS ACIDOPHILUS 1 TABLET PO SCH (09:39)
[2018-07-04] MEDS: LOSARTAN POTASSIUM 50 MG TABLET (FP) PO SCH (09:39)
[2018-07-04] MEDS: PANTOPRAZOLE 40 MG TABLET (FP) PO SCH (09:39)
--- NOTE | 2018-07-04 11:51 | PN ---
Progress Note (short form) - Note Progress Note: Awake and alert on 5 L NC O2. Feels overall better. Using his BiPAP Auto QHS. Intake & Output 07/01/18 07/02/18 07/03/18 07/04/18 23:59 23:59 23:59 23:59 Intake Total 730 303 2318 250 Output Total 2600 2000 850 Balance -1610 -1110 450 250 Weight 345 lb 340 lb 8 oz Last Vital Signs Temp Pulse Resp BP Pulse Ox 97.6 F 77 20 150/84 94 L 07/04/18 10:00 07/04/18 10:00 07/04/18 10:00 07/04/18 10:00 07/04/18 09:00 Active Medications Acetaminophen (Tylenol -) 650 mg PO Q6H PRN PRN Reason: FEVER Albuterol Sulfate (Ventolin 0.083% Nebulizer Soln -) 1 amp NEB Q4H PRN PRN Reason: SHORTNESS OF BREATH Albuterol/Ipratropium (Duoneb -) 1 amp NEB RQID [facility] Last Admin: 07/04/18 11:13 Dose: 1 amp Enoxaparin Sodium (Lovenox -) 40 mg SQ DAILY [facility] Last Admin: 07/04/18 09:38 Dose: 40 mg Levofloxacin (Levaquin 750 Mg Premixed Ivpb -) 750 mg in 150 mls @ 100 mls/hr IVPB DAILY [facility]; Protocol Last Admin: 07/04/18 09:38 Dose: 100 mls/hr Vancomycin HCl (Vancomycin (Pre-Docked)) 1,000 mg in 250 mls @ 166.667 mls/hr IVPB BID@0000,1200 [facility]; Protocol Last Admin: 07/04/18 11:39 Dose: 166.667 mls/hr Lactobacillus Acidophilus (Bacid -) 1 tab PO DAILY [facility] Last Admin: 07/04/18 09:39 Dose: 1 tab Losartan Potassium (Cozaar -) 100 mg PO DAILY [facility] Last Admin: 07/04/18 09:39 Dose: 100 mg Methylprednisolone Sodium Succinate (Solu-Medrol -) 40 mg IVPUSH BID [facility] Last Admin: 07/04/18 09:38 Dose: 40 mg Pantoprazole Sodium (Protonix -) 40 mg PO DAILY [facility] Last Admin: 07/04/18 09:39 Dose: 40 mg Gen: NAD in bed Heart: RRR Lung: distant breath sounds, no wheezes Abd: soft, nontender Ext: distal edema Laboratory Results - last 24 hr 07/03/18 05:30 Neutrophils % (Manual) 90.0 H Band Neutrophils % 0.0 Lymphocytes % (Manual) 3.0 L D Monocytes % (Manual) 6 D Eosinophils % (Manual) 0.0 Basophils % (Manual) 0.0 Myelocytes % (Man) 0 Promyelocytes % (Man) 0 Blast Cells % (Manual) 0 Metamyelocytes 0 Hypochromia 0 Toxic Granulation 0 Dohle Bodies 0 Platelet Estimate Adequate Polychromasia 0 Poikilocytosis 0 Basophilic Stippling 0 Anisocytosis 0 Microcytosis 0 Macrocytosis 0 Spherocytes 0 Sickle Cells 0 Target Cells 0 Tear Drop Cells 0 Ovalocytes 0 Stomatocytes 0 Helmet Cells 0 Arizmendi-Harmon Bodies 0 [place] Rings 0 Nury Cells 0 Acanthocytes (Spur) 0 Rouleaux 0 Fragmented RBCs 0 Schistocytes 0 ASSESSMENT AND PLAN: Acute on Chronic Hypoxic and Hypercapneic Respiratory Failure improving Acute COPD Exacerbation Pneumonia Hypertension Morbid Obesity NADIRA/OHS - ABX - probiotic - medrol taper - inhaled bronchodilators - O2 to keep SpO2 88-92% - BiPAP at night and PRN during day - DVT prophylaxis - will need outpt PFTs and f/u Dr Jasmine
[2018-07-04] MEDS ORDERED: VANCOMYCIN 1 GRAM (PRE-DOCKED) 1,000 MG/250 ML BAG IVPB SCH (12:00)
--- NOTE | 2018-07-04 15:30 | PN ---
Progress Note, Physician History of Present Illness: Awake, alert on cpap Slightly tachypneic Temps down afebrile Sputum c/s normal jh Legionella ag (-) - Current Medication List Current Medications: Active Medications Acetaminophen (Tylenol -) 650 mg PO Q6H PRN PRN Reason: FEVER Albuterol Sulfate (Ventolin 0.083% Nebulizer Soln -) 1 amp NEB Q4H PRN PRN Reason: SHORTNESS OF BREATH Albuterol/Ipratropium (Duoneb -) 1 amp NEB RQID [facility] Last Admin: 07/04/18 11:13 Dose: 1 amp Enoxaparin Sodium (Lovenox -) 40 mg SQ DAILY [facility] Last Admin: 07/04/18 09:38 Dose: 40 mg Levofloxacin (Levaquin 750 Mg Premixed Ivpb -) 750 mg in 150 mls @ 100 mls/hr IVPB DAILY [facility]; Protocol Last Admin: 07/04/18 09:38 Dose: 100 mls/hr Vancomycin HCl (Vancomycin (Pre-Docked)) 1,000 mg in 250 mls @ 166.667 mls/hr IVPB BID@0000,1200 [facility]; Protocol Last Admin: 07/04/18 11:39 Dose: 166.667 mls/hr Lactobacillus Acidophilus (Bacid -) 1 tab PO DAILY [facility] Last Admin: 07/04/18 09:39 Dose: 1 tab Losartan Potassium (Cozaar -) 100 mg PO DAILY [facility] Last Admin: 07/04/18 09:39 Dose: 100 mg Methylprednisolone Sodium Succinate (Solu-Medrol -) 40 mg IVPUSH BID [facility] Last Admin: 07/04/18 09:38 Dose: 40 mg Pantoprazole Sodium (Protonix -) 40 mg PO DAILY [facility] Last Admin: 07/04/18 09:39 Dose: 40 mg - Objective Vital Signs: Vital Signs Temperature 98.1 F 07/04/18 13:52 Pulse Rate 89 07/04/18 13:52 Respiratory Rate 20 07/04/18 13:52 Blood Pressure 148/79 07/04/18 13:52 O2 Sat by Pulse Oximetry (%) 94 L 07/04/18 09:00 Constitutional: Yes: No Distress, Obese Cardiovascular: Yes: Regular Rate and Rhythm, S1, S2 Respiratory: Yes: Diminished Gastrointestinal: Yes: Normal Bowel Sounds, Soft. No: Tenderness Edema: Yes Labs: CBC, BMP 07/03/18 05:30 07/03/18 05:30 INR, PTT INR 1.03 (0.83-1.09) 06/29/18 13:46 Assessment/Plan Hypercapneic respiratory failure S/P extubation Pneumonia Fever/ leukocytosis Lactic acidosis Cephalosporin allergy Continue empiric levaquin Switch to po next 24-48hr D/C vancomycin Discussed with family at bedside
[2018-07-05 05:57] VITALS: TEMP 97.6
[2018-07-05] MEDS: ALBUTEROL SO4 2.5/IPRATROPIUM 0.5 INH SOL 3 ML VIAL.NEB. NEB SCH (07:40)
--- NOTE | 2018-07-05 08:52 | DS ---
Physical Examination Vital Signs: Vital Signs Temperature 97.6 F 07/05/18 05:56 Pulse Rate 66 07/05/18 05:56 Respiratory Rate 22 H 07/05/18 05:56 Blood Pressure 130/80 07/05/18 05:56 O2 Sat by Pulse Oximetry (%) 94 L 07/04/18 21:00 Constitutional: Yes: No Distress, Obese Eyes: Yes: EOM Intact HENT: Yes: Normocephalic Neck: Yes: Trachea Midline Cardiovascular: Yes: Regular Rate and Rhythm Respiratory: Yes: CTA Bilaterally Gastrointestinal: Yes: Normal Bowel Sounds, Soft, Abdomen, Obese, Hernia Musculoskeletal: Yes: WNL Extremities: Yes: WNL Peripheral Pulses WNL: Yes Labs: CBC, BMP 07/03/18 05:30 07/03/18 05:30 Discharge Summary Reason For Visit: ACUTE RESPIRATORY ACIDOSIS Current Active Problems Acute respiratory acidosis (Acute) Acute respiratory failure (Acute) COPD (chronic obstructive pulmonary disease) (Acute) Traumatic hematoma of forehead (Acute) Hospital Course: admitted for hypercapnic respiratory failure, pneumonia, sepsis. intubated, sedated for 2 days treated with iv levaquin and vanco clinically much improved, ambulatory tolerating bipap at night medically stable to dc home on steroid taper and to finish oral abx course pft/pulm/medical f/up as outpt has o2 bipap at [facility] was requested Condition: Fair - Instructions Referrals: Haylie Noel MD [Primary Care Provider] - Osito Ortega MD, MD [Staff Physician] - Disposition: VNS/HOME HEALTH CARE - Home Medications Comprehensive Discharge Medication List: Ambulatory Orders Albuterol 0.083% Nebulizer Katie [Ventolin 0.083% Nebulizer Soln -] 1 amp NEB Q4H PRN amp 07/05/18 Albuterol 2.5/Ipratropium 0.5 [Duoneb -] 1 amp NEB RQID amp 07/05/18 Fluticasone/Salmeterol [Advair Hfa 230-21 Mcg Inhaler] 2 inh PO BID #1 inhaler 07/05/18 Lactobacillus Acidophilus [Bacid -] 1 tab PO DAILY tab 07/05/18 Losartan Potassium [Cozaar -] 100 mg PO DAILY tablet 07/05/18 Methylprednisolone [Medrol Dose Kenny] 4 mg PO ASDIR #21 tablet 07/05/18 Omeprazole 40 mg PO DAILY #10 tab.rap 07/05/18 Tiotropium [place] [Spiriva] 1 inh PO DAILY #30 inhaler 07/05/18 levoFLOXacin [Levaquin] 750 mg PO DAILY #4 tab 07/05/18
[2018-07-05 09:03] VITALS: BP 145/81; PULSE 82
[2018-07-05] MEDS: LOSARTAN POTASSIUM 50 MG TABLET (FP) PO SCH (09:10)
[2018-07-05] MEDS: LACTOBACILLUS ACIDOPHILUS 1 TABLET PO SCH (09:10)
[2018-07-05] MEDS: ENOXAPARIN NA (PORCINE) 40 MG/0.4 ML DISP.SYRIN SQ SCH (09:10)
[2018-07-05] MEDS ORDERED: predniSONE 20 MG TABLET (UD) PO SCH (10:00)
[2018-07-05] MEDS: PANTOPRAZOLE 40 MG TABLET (FP) PO SCH (10:02)
== END 2018-07-05 13:46 | disposition home health service (06) | DRG 871 ==
LOC: JER 13:06 → JERBED 16:07 → JICU 21:12 → J7W 07-04 01:02
PROVIDERS: ADMIT Internal Medicine; ATTEND Internal Medicine
PROC: 0BH17EZ Insertion of Endotracheal Airway into Trachea, Via Natural or Artificial Opening (ICD-10-PCS; principal; 2018-06-29)
PROC: 5A1935Z Respiratory Ventilation, Less than 24 Consecutive Hours (ICD-10-PCS; 2018-06-29)
DX: A41.9 Sepsis, unspecified organism (principal); J96.01 Acute respiratory failure with hypoxia; J96.02 Acute respiratory failure with hypercapnia; J18.9 Pneumonia, unspecified organism; J44.1 Chronic obstructive pulmonary disease with (acute) exacerbation; Z68.42 Body mass index [BMI] 45.0-49.9, adult; E87.3 Alkalosis; E87.2 Acidosis; J98.11 Atelectasis; I50.9 Heart failure, unspecified; K42.9 Umbilical hernia without obstruction or gangrene; E66.01 Morbid (severe) obesity due to excess calories; Z99.81 Dependence on supplemental oxygen; G47.30 Sleep apnea, unspecified; G47.33 Obstructive sleep apnea (adult) (pediatric); D72.829 Elevated white blood cell count, unspecified; R00.0 Tachycardia, unspecified; Z88.1 Allergy status to other antibiotic agents
CPT/HCPCS: 36415; 36600; 70450-TC; 71045-TC-FY; 71275-TC; 80053; 81003; 81015; 82375; 82550; 82803; 83050; 83605; 83735; 83880; 84100; 84484; 85025; 85610; 85730; 87040; 87070; 87086; 87205; 87804; 87899; 90732; 93005; 93010; 93306-TC; 94002; 94640; 94660; 97116-GP; 97161-GP; 99285-25; G0009; G0480; J0131; J7030

== ENCOUNTER 2018-09-24 11:28 | Inpatient (IN) | payer OTHER ==
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
[2018-09-24] MEDS ORDERED: methylPREDNISolone NA SUCC 125 MG/2 ML VIAL IVPB ONE (12:17)
--- NOTE | 2018-09-24 12:26 | PDOC ---
Attending Attestation - Resident Resident Name: Dann Keita - ED Attending Attestation I have performed the following: I have examined & evaluated the patient, The case was reviewed & discussed with the resident, I agree w/resident's findings & plan, Exceptions are as noted - HPI HPI: 09/24/18 12:42 62 M with h/o COPD, CHF, midline umbilical hernia, presenting to ED with SOB and chills x 1 day. Pt states this started this morning. Denies fevers. Denies CP. Pt states that he has not been compliant with his CPAP machine due to difficulty using it. Denies any increased leg swelling. - Physicial Exam PE: 09/24/18 12:42 "GENERAL: Awake, alert, and fully oriented, + moderate respiratory acute distress. HEAD: No signs of trauma EYES: PERRLA, EOMI, sclera anicteric, conjunctiva clear ENT: Auricles normal inspection, hearing grossly normal, nares patent, oropharynx clear without exudates. Moist mucosa NECK: Nontender, no stepoffs, Normal ROM, supple, no lymphadenopathy, JVD, or masses LUNGS: Poor air movement bilaterally HEART: Regular rate and rhythm, normal S1 and S2, no murmurs, rubs or gallops ABDOMEN: Soft, nontender, normoactive bowel sounds. No guarding, no rebound. No masses EXTREMITIES: Normal range of motion, no edema. No clubbing or cyanosis. No cords, erythema, or tenderness NEUROLOGICAL: Cranial nerves II through XII intact. 5/5 strength and sensation in all extremities, Normal speech, normal gait, normal cerebellar function SKIN: Warm, Dry, normal turgor, no rashes or lesions noted. - Critical Care Time Total Critical Care Time: 60 Critical Care Statement: The care of this patient involved high complexity decision making to prevent further life threatening deterioration of the patient 's condition and/or to evaluate & treat vital organ system(s) failure or risk of failure. - Medical Decision Making 09/24/18 12:43 62 M with SOB and chills. Pt afebrile in ED but will w/u for infectious process. VItals notable for hypoxia to 70s on RA. Suspect COPD vs CHF. - Labs - CXR - Nebs, steroids - BiPAP 09/24/18 14:46 Initial CO2 > 120 Pt placed on BIPAP with nebs and steroids Repeat gas with worsening PCO2 Pt reassessed - states he feels better, awake and alert Pt admitted to ICU Will continue to monitor for airway protection, low threshold for intubation
[2018-09-24 12:33] LABS: VENOUS PH 7.24 (7.32-7.42); VENOUS PO2 56.5 mmHg (28-48)
[2018-09-24 12:34] LABS: BASO % 0.6 % (0-2.0); EOS % 2.1 % (0-4.5); HEMATOCRIT 42.2 % (35.4-49); HEMOGLOBIN 13.5 GM/dL (11.7-16.9); LYMPH % 4.2 % (8-40); MCH 29.3 pg (25.7-33.7); MCHC 32.1 g/dl (32.0-35.9); MEAN CELL VOLUME 91.5 fl (80-96); MEAN PLT VOLUME 9.1 fl (7.5-11.1); MONO % 5.8 % (3.8-10.2); NEUT % 87.3 % (42.8-82.8); PLATELET COUNT 154 K/MM3 (134-434); RBC 4.61 M/mm3 (4.00-5.60); RDW 16.1 % (11.9-15.9); WHITE BLOOD COUNT 15.6 K/mm3 (4.0-10.0)
[2018-09-24] MEDS: ALBUTEROL SO4 2.5/IPRATROPIUM 0.5 INH SOL 3 ML VIAL.NEB. NEB SCH ×6 (12:40→20:59)
[2018-09-24] MEDS ORDERED: AZITHROMYCIN IVPB 500 MG in DEXTROSE 5%-WATER - 250 ML IVPB ONE (12:52)
[2018-09-24] MEDS ORDERED: AZITHROMYCIN IVPB 500 MG/250 ML BAG IVPB ONE (13:01)
[2018-09-24] MEDS ORDERED: methylPREDNISolone NA SUCC 125 MG/2 ML VIAL ONE ×2 (13:01)
[2018-09-24] MEDS ORDERED: ALBUTEROL SO4 2.5/IPRATROPIUM 0.5 INH SOL 3 ML VIAL.NEB. NEB ONE (13:01)
--- NOTE | 2018-09-24 13:10 | CON.PULM ---
Consult Consult Specialty:: PULM/CCM Referred by:: ER Reason for Consultation:: AMS / SOB - History of Present Illness Chief Complaint: AMS History of Present Illness: 62 M, well known to our service. COPD due to previous smoking history, Severe OSAS and OHS. On home Auto-BiLevel. Uses between 4 to 10 L NC O2 depending on his symptoms and O2 saturation by home oximetry measurements. Admitted via the ERE due to acute on chronic hypercapneic respiratory failure. No ABG is available for review. He is drowsy but arounsable on NIPPV. He does recognize me but is not able to provide reliable information. NIPPV adjusted to increase his minute ventilation as he is most likely has an acute component of hypercapnia. CXR: Low lung volumes / bilateral congestive changes - History Source History Provided By: Patient, Medical Record Limitations to Obtaining History: Clinical Condition - Past Medical History Cardio/Vascular: Yes: HTN, Other (echo aug 2016 showed good ef at 63 %) Pulmonary: Yes: Bronchitis, COPD, O2 Dependent (on 6 L O2 at home), Pneumonia, Sleep Apnea (on BIPAP but does not use it consistenly), Other (OHS). No: Previously Intubated, Pulmonary Embolus, Pulmonary Fibrosis Musculoskeletal: Yes: Osteoarthritis Endocrine: Yes: Other (Obesity) - Alcohol/Substance Use Hx Alcohol Use: No - Smoking History Smoking history: Former smoker Have you smoked in the past 12 months: No If you are a former smoker, when did you quit?: 2009 - Social History ADL: Independent History of Recent Travel: No Home Medications - Allergies Allergies/Adverse Reactions: Allergies Allergy/AdvReac Type Severity Reaction Status Date / Time strawberry Allergy Verified 09/24/18 11:56 cephalexin [From Keflex] AdvReac Verified 09/24/18 11:56 - Home Medications Home Medications: Ambulatory Orders Albuterol 0.083% Nebulizer Kaite [Ventolin 0.083% Nebulizer Soln -] 1 amp NEB Q4H PRN amp 07/05/18 Albuterol 2.5/Ipratropium 0.5 [Duoneb -] 1 amp NEB RQID amp 07/05/18 Fluticasone/Salmeterol [Advair Hfa 230-21 Mcg Inhaler] 2 inh PO BID #1 inhaler 07/05/18 Lactobacillus Acidophilus [Bacid -] 1 tab PO DAILY tab 07/05/18 Losartan Potassium [Cozaar -] 100 mg PO DAILY tablet 07/05/18 Methylprednisolone [Medrol Dose Kenny] 4 mg PO ASDIR #21 tablet 07/05/18 Omeprazole 40 mg PO DAILY #10 tab. 07/05/18 Tiotropium [place] [Spiriva] 1 inh PO DAILY #30 inhaler 07/05/18 levoFLOXacin [Levaquin] 750 mg PO DAILY #4 tab 07/05/18 Review of Systems Unable to obtain ROS, reason: Too drowsy to report Physical Exam Vital Sings: Vital Signs Temperature 98.9 F 09/24/18 11:28 Pulse Rate 94 H 09/24/18 11:28 Respiratory Rate 18 09/24/18 11:28 Blood Pressure 132/68 09/24/18 11:28 O2 Sat by Pulse Oximetry (%) 91 L 09/24/18 12:20 Constitutional: Yes: No Distress, Obese, Other (drowsy but arousable ) Eyes: Yes: Conjunctiva Clear, EOM Intact HENT: Yes: Atraumatic, Normocephalic Neck: Yes: Supple, Trachea Midline Cardiovascular: Yes: Regular Rate and Rhythm Respiratory: Yes: Diminished, On BiPap, Rhonchi, Wheezes. No: Accessory Muscle Use, Stridor, Tachypnea ...Inspection: Yes: WNL ...Clubbing: No Gastrointestinal: Yes: Normal Bowel Sounds, Soft, Abdomen, Obese Musculoskeletal: Yes: WNL Extremities: Yes: WNL Edema: Yes Peripheral Pulses WNL: Yes Integumentary: Yes: WNL Neurological: Yes: Confusion, Other (drowsy ) Labs: CBC, BMP 09/24/18 12:24 Imaging - Results Chest X-ray: Report Reviewed, Image Reviewed Problem List - Problems (1) Acute and chronic respiratory failure Code(s): J96.20 - ACUTE AND CHR RESP FAILURE, UNSP W HYPOXIA OR HYPERCAPNIA (2) Obesity hypoventilation syndrome Code(s): E66.2 - MORBID (SEVERE) OBESITY WITH ALVEOLAR HYPOVENTILATION (3) Acute exacerbation of chronic obstructive airways disease Code(s): J44.1 - CHRONIC OBSTRUCTIVE PULMONARY DISEASE W (ACUTE) EXACERBATION (4) Pulmonary vascular congestion Code(s): R09.89 - OTH SYMPTOMS AND SIGNS INVOLVING THE CIRC AND RESP SYSTEMS (5) Acute respiratory acidosis Code(s): E87.2 - ACIDOSIS (6) COPD (chronic obstructive pulmonary disease) Code(s): J44.9 - CHRONIC OBSTRUCTIVE PULMONARY DISEASE, UNSPECIFIED Assessment/Plan NIPPV settings were adjusted to increase minute ventilation: Check ABG Medrol BD TX standing and PRN Would continue empiric ABX for now Lasix Follow CXR Recinos-culture Aspiration precautions If mental status does not improve or his hypercapnia remains pronounced, will monitor in the ICU. Will follow Thank you. Dr Jasimne Critical care time spent in reviewing chart, evaluating patient and formulating plan - 36 minutes.
[2018-09-24 13:13] LABS: INR 0.99 (0.83-1.09); PROTHROMBIN TIME (PATIENT) 11.7 SEC (9.7-13.0)
[2018-09-24 13:15] LABS: ALBUMIN 3.3 g/dl (3.4-5.0); ALK PHOS 69 U/L (45-117); ANION GAP 6 MMOL/L (8-16); BILIRUBIN,TOTAL 0.5 mg/dL (0.2-1); BLOOD UREA NITROGEN 16 mg/dL (7-18); CALCIUM 8.5 mg/dL (8.5-10.1); CHLORIDE 91 mmol/L (98-107); CO2 > 45 mmol/L (21-32); CREATININE 0.6 mg/dL (0.55-1.3); GLUCOSE,RANDOM 229 mg/dL (74-106); SGOT/AST 32 U/L (15-37); SGPT/ALT 25 U/L (13-61); SODIUM 142 mmol/L (136-145); TOT PROT 6.5 g/dl (6.4-8.2)
[2018-09-24 13:16] LABS: ACTIVATED PTT 23.9 SECONDS (25.2-36.5)
[2018-09-24 13:21] LABS: URINE APPEARANCE CLEAR; URINE BILIRUBIN NEGATIVE (<2.0 mg/dL); URINE COLOR AMBER; URINE GLUCOSE (UA) 1+ (NEGATIVE); URINE KETONE NEGATIVE (NEGATIVE); URINE LEUK ESTERASE NEGATIVE (NEGATIVE); URINE NITRITE NEGATIVE (NEGATIVE); URINE PROTEIN 2+ (NEGATIVE)
[2018-09-24 13:27] LABS: CALCIUM OXALATE CRYSTALS RARE /hpf (NONE SEEN); URINE MUCUS RARE
[2018-09-24] MEDS ORDERED: FUROSEMIDE 40 MG/4 ML INJECTABLE VIAL IVPUSH ONE (14:04)
[2018-09-24 14:20] LABS: ARTERIAL BLD GAS O2 SATURATION 93.7 % (90-98.9); ARTERIAL BLOOD GAS BASE EXCESS 17.5 meq/l (-2-2); ARTERIAL BLOOD GAS PO2 82.1 mmHg (80-100); CARBOXYHEMOGLOBIN 1.7 gm% (0.5-2.0)
[2018-09-24] MEDS: methylPREDNISolone NA SUCC 40 MG/1 ML VIAL IVPUSH SCH ×2 (14:21→18:22)
[2018-09-24] MEDS ORDERED: FUROSEMIDE 40 MG/4 ML INJECTABLE VIAL ONE (14:22)
[2018-09-24 14:23] LABS: ALLENS TEST POSITIVE; ARTERIAL BLOOD GAS pH 7.18 (7.35-7.45)
--- NOTE | 2018-09-24 15:05 | EKG ---
Test Reason : Blood Pressure : / mmHG Vent. Rate : 083 BPM Atrial Rate : 083 BPM P-R Int : 178 ms QRS Dur : 084 ms QT Int : 340 ms P-R-T Axes : 036 -38 023 degrees QTc Int : 399 ms NORMAL SINUS RHYTHM LEFT AXIS DEVIATION INFERIOR INFARCT , AGE UNDETERMINED ABNORMAL ECG WHEN COMPARED WITH ECG OF 01-JUL-2018 09:09, INFERIOR INFARCT IS NOW PRESENT Confirmed by Isaac Landrum MD ([id number]) on 09/24/2018 3:04:23 PM Referred By: Confirmed By:Isaac Landrum MD
[2018-09-24] MEDS ORDERED: ALBUTEROL SO4 0.083% IH SOL 2.5 MG/3 ML VIAL.NEB. NEB PRN (16:00)
[2018-09-24] MEDS: PANTOPRAZOLE SODIUM 40 MG VIAL IVPUSH SCH (18:46)
--- NOTE | 2018-09-24 18:55 | HP ---
Admitting History and Physical - Primary Care Physician PCP: Haylie Noel - Admission Chief Complaint: lethargy, respiratory failure History of Present Illness: past three weeks has not been very well, inconsistent bipap use this am when son came home he was lethargic, unable to walk, fell and was unable to get up. was brought in be ems History Source: Family Member Limitations to Obtaining History: Clinical Condition - Past Medical History Cardiovascular: Yes: HTN, Other (echo aug 2016 showed good ef at 63 %) Pulmonary: Yes: Bronchitis, COPD, O2 Dependent (on 6 L O2 at home), Pneumonia, Sleep Apnea (on BIPAP but does not use it consistenly), Other (OHS, prior episode of intubation). No: Previously Intubated, Pulmonary Embolus, Pulmonary Fibrosis Musculoskeletal: Yes: Osteoarthritis Endocrine: Yes: Other (Obesity) - Smoking History Smoking history: Former smoker Have you smoked in the past 12 months: No If you are a former smoker, when did you quit?: 2009 - Alcohol/Substance Use Hx Alcohol Use: No - Social History ADL: Independent History of Recent Travel: No Home Medications - Allergies Allergies/Adverse Reactions: Allergies Allergy/AdvReac Type Severity Reaction Status Date / Time strawberry Allergy Verified 09/24/18 11:56 cephalexin [From Keflex] AdvReac Verified 09/24/18 11:56 - Home Medications Home Medications: Ambulatory Orders Albuterol 0.083% Nebulizer Katie [Ventolin 0.083% Nebulizer Soln -] 1 amp NEB Q4H PRN amp 07/05/18 Albuterol 2.5/Ipratropium 0.5 [Duoneb -] 1 amp NEB RQID amp 07/05/18 Fluticasone/Salmeterol [Advair Hfa 230-21 Mcg Inhaler] 2 inh PO BID #1 inhaler 07/05/18 Losartan Potassium [Cozaar -] 100 mg PO DAILY tablet 07/05/18 Omeprazole 40 mg PO DAILY #10 tab 07/05/18 Tiotropium [place] [Spiriva] 1 inh PO DAILY #30 inhaler 07/05/18 Amlodipine Besylate 5 mg PO DAILY 09/24/18 Fluticasone/Vilanterol [Breo Ellipta 200-25 Mcg INH] 1 puff IN DAILY 09/24/18 Umeclidinium Peck [Incruse Ellipta] 1 puff IN DAILY 09/24/18 Family Disease History - Family Disease History Family History: Unable to Obtain Review of Systems Unable to obtain ROS, reason: lethargic Physical Examination Vital Signs: Vital Signs Temperature 98.3 F 09/24/18 16:55 Pulse Rate 82 09/24/18 16:55 Respiratory Rate 09/24/18 16:55 Blood Pressure 133/76 09/24/18 16:55 O2 Sat by Pulse Oximetry (%) 95 09/24/18 18:39 Constitutional: Yes: Well Nourished, Obese Eyes: Yes: Conjunctiva Clear HENT: Yes: Normocephalic Neck: Yes: Trachea Midline Cardiovascular: Yes: Regular Rate and Rhythm Respiratory: Yes: On BiPap, Poor Air Entry Gastrointestinal: Yes: Normal Bowel Sounds, Abdomen, Obese, Other (large reducible ventral hernia) Edema: LLE: Trace, RLE: Trace Peripheral Pulses WNL: Yes Neurological: Yes: Other (arousable, nods and waves when prompted) Labs: CBC, BMP 09/24/18 12:24 09/24/18 12:24 Abnormal Lab Results 09/24/18 09/24/18 09/24/18 12:24 12:24 12:24 WBC 15.6 H RDW 16.1 H Absolute Neuts (auto) 13.6 H Neutrophils % 87.3 H Lymphocytes % 4.2 L D PTT (Actin FS) 23.9 L ABG pH ABG pCO2 at Pt Temp ABG HCO3 ABG Base Excess VBG pH 7.24 L* POC VBG pCO2 128.0 H* POC VBG pO2 56.5 H Mixed VBG HCO3 52.7 H* Chloride Carbon Dioxide Anion Gap Random Glucose Albumin Urine Protein Urine Glucose (UA) 09/24/18 09/24/18 09/24/18 12:24 12:41 14:05 WBC RDW Absolute Neuts (auto) Neutrophils % Lymphocytes % PTT (Actin FS) ABG pH 7.18 L* D ABG pCO2 at Pt Temp 146.0 H* D ABG HCO3 52.3 H* ABG Base Excess 17.5 H* VBG pH POC VBG pCO2 POC VBG pO2 Mixed VBG HCO3 Chloride 91 L Carbon Dioxide > 45 H Anion Gap 6 L Random Glucose 229 H Albumin 3.3 L Urine Protein 2+ H Urine Glucose (UA) 1+ H Imaging - Results Chest X-ray: Report Reviewed Problem List - Problems (1) Obesity due to excess calories with serious comorbidity Code(s): E66.09 - OTHER OBESITY DUE TO EXCESS CALORIES Qualifiers: Body mass index: BMI 40.0-44.9 (2) Acute and chronic respiratory failure Code(s): J96.20 - ACUTE AND CHR RESP FAILURE, UNSP W HYPOXIA OR HYPERCAPNIA Qualifiers: Respiratory failure complication: hypoxia and hypercapnia Qualified Code(s) : J96.21 - Acute and chronic respiratory failure with hypoxia; J96.22 - Acute and chronic respiratory failure with hypercapnia (3) COPD (chronic obstructive pulmonary disease) Code(s): J44.9 - CHRONIC OBSTRUCTIVE PULMONARY DISEASE, UNSPECIFIED Assessment/Plan BIPAP steroids empiric abx until cultures return gi/dvt prophylaxis riss consult appreciated
[2018-09-24] MEDS: HEPARIN NA (PORCINE) 5,000 UNITS/ML 1ML VIAL SQ SCH (21:40)
[2018-09-24] MEDS ORDERED: PATIENT'S OWN MEDICATION (NON-FORMULARY) (Fluticasone/Salmeterol [Advair Hfa 230-21 Mcg In PO SCH (22:00)
[2018-09-25] MEDS: methylPREDNISolone NA SUCC 40 MG/1 ML VIAL IVPUSH SCH ×3 (01:01→17:50)
[2018-09-25] MEDS: HEPARIN NA (PORCINE) 5,000 UNITS/ML 1ML VIAL SQ SCH ×3 (05:18→22:06)
[2018-09-25 06:31] LABS: ARTERIAL BLD GAS O2 SATURATION 97.3 % (90-98.9); ARTERIAL BLOOD GAS PO2 98.5 mmHg (80-100); ARTERIAL BLOOD GAS pH 7.27 (7.35-7.45)
[2018-09-25 06:32] LABS: ALLENS TEST POSITIVE
[2018-09-25 06:34] LABS: ARTERIAL BLOOD GAS BASE EXCESS 23.2 meq/l (-2-2)
[2018-09-25] MEDS: INSULIN SLIDING SCALE (NOVOLOG) 1 VIAL SQ SCH ×2 (06:48→18:10)
[2018-09-25 06:57] LABS: BASO % 0.1 % (0-2.0); HEMATOCRIT 37.9 % (35.4-49); HEMOGLOBIN 12.6 GM/dL (11.7-16.9); LYMPH % 4.2 % (8-40); MCH 29.7 pg (25.7-33.7); MCHC 33.3 g/dl (32.0-35.9); MEAN CELL VOLUME 89.3 fl (80-96); MEAN PLT VOLUME 8.9 fl (7.5-11.1); MONO % 5.2 % (3.8-10.2); NEUT % 90.5 % (42.8-82.8); PLATELET COUNT 130 K/MM3 (134-434); RBC 4.24 M/mm3 (4.00-5.60); RDW 15.2 % (11.9-15.9); WHITE BLOOD COUNT 10.9 K/mm3 (4.0-10.0)
[2018-09-25 07:22] LABS: ALK PHOS 71 U/L (45-117); ANION GAP 9 MMOL/L (8-16); BILIRUBIN,TOTAL 0.4 mg/dL (0.2-1); BLOOD UREA NITROGEN 17 mg/dL (7-18); CALCIUM 8.4 mg/dL (8.5-10.1); CHLORIDE 89 mmol/L (98-107); CO2 > 45 mmol/L (21-32); CREATININE 0.5 mg/dL (0.55-1.3); GLUCOSE,RANDOM 157 mg/dL (74-106); MAGNESIUM 2.2 mg/dL (1.8-2.4); PHOSPHOROUS 4.1 mg/dL (2.5-4.9); POTASSIUM 4.7 mmol/L (3.5-5.1); SGOT/AST 11 U/L (15-37); SGPT/ALT 18 U/L (13-61); SODIUM 143 mmol/L (136-145); TOT PROT 6.2 g/dl (6.4-8.2)
[2018-09-25] MEDS: ALBUTEROL SO4 2.5/IPRATROPIUM 0.5 INH SOL 3 ML VIAL.NEB. NEB SCH ×4 (08:33→20:56)
--- NOTE | 2018-09-25 09:57 | PN ---
Progress Note (short form) - Note Progress Note: Laboratory Results - last 24 hr 09/24/18 09/24/18 09/24/18 12:21 12:24 12:24 WBC 15.6 H RBC 4.61 Hgb 13.5 Hct 42.2 MCV 91.5 MCH 29.3 MCHC 32.1 RDW 16.1 H Plt Count 154 MPV 9.1 Absolute Neuts (auto) 13.6 H Neutrophils % 87.3 H Lymphocytes % 4.2 L D Monocytes % 5.8 Eosinophils % 2.1 D Basophils % 0.6 D Nucleated RBC % 0 PT with INR 11.70 INR 0.99 PTT (Actin FS) 23.9 L Anticoagulation Therapy Puncture Site ABG pH ABG pCO2 at Pt Temp ABG pO2 at Pt Temp ABG HCO3 ABG O2 Sat (Measured) ABG O2 Content ABG Base Excess Bebeto Test VBG pH POC VBG pCO2 POC VBG pO2 Mixed VBG HCO3 Carboxyhemoglobin Methemoglobin O2 Delivery Device Oxygen Flow Rate Vent Mode Vent Rate Mechanical Rate Pressure Support Vent Sodium Potassium Chloride Carbon Dioxide Anion Gap BUN Creatinine Creat Clearance w eGFR POC Glucometer Random Glucose Lactic Acid 1.4 Calcium Phosphorus Magnesium Total Bilirubin AST ALT Alkaline Phosphatase Troponin I Total Protein Albumin Urine Color Urine Appearance Urine pH Ur Specific [place] Urine Protein Urine Glucose (UA) Urine Ketones Urine Blood Urine Nitrite Urine Bilirubin Urine Urobilinogen Ur Leukocyte Esterase Urine WBC (Auto) Urine RBC (Auto) Calcium Oxalate Crystal Urine Mucus Influenza A (Rapid) Influenza B (Rapid) 09/24/18 09/24/18 09/24/18 12:24 12:24 12:41 WBC RBC Hgb Hct MCV MCH MCHC RDW Plt Count MPV Absolute Neuts (auto) Neutrophils % Lymphocytes % Monocytes % Eosinophils % Basophils % Nucleated RBC % PT with INR INR PTT (Actin FS) Anticoagulation Therapy Puncture Site ABG pH ABG pCO2 at Pt Temp ABG pO2 at Pt Temp ABG HCO3 ABG O2 Sat (Measured) ABG O2 Content ABG Base Excess Bebeto Test VBG pH 7.24 L* POC VBG pCO2 128.0 H* POC VBG pO2 56.5 H Mixed VBG HCO3 52.7 H* Carboxyhemoglobin Methemoglobin O2 Delivery Device Oxygen Flow Rate Vent Mode Vent Rate Mechanical Rate Pressure Support Vent Sodium 142 Potassium 5.0 Chloride 91 L Carbon Dioxide > 45 H Anion Gap 6 L BUN 16 Creatinine 0.6 Creat Clearance w eGFR > 60 POC Glucometer Random Glucose 229 H Lactic Acid Calcium 8.5 Phosphorus Magnesium Total Bilirubin 0.5 AST 32 ALT 25 Alkaline Phosphatase 69 Troponin I < 0.02 Total Protein 6.5 Albumin 3.3 L Urine Color Jessika Urine Appearance Clear Urine pH 5.0 Ur Specific [place] 1.029 Urine Protein 2+ H Urine Glucose (UA) 1+ H Urine Ketones Negative Urine Blood Negative Urine Nitrite Negative Urine Bilirubin Negative Urine Urobilinogen 2.0 Ur Leukocyte Esterase Negative Urine WBC (Auto) None Urine RBC (Auto) 3 Calcium Oxalate Crystal Rare Urine Mucus Rare Influenza A (Rapid) Influenza B (Rapid) 09/24/18 09/24/18 09/25/18 14:05 15:32 05:30 WBC 10.9 H RBC 4.24 Hgb 12.6 Hct 37.9 MCV 89.3 MCH 29.7 MCHC 33.3 RDW 15.2 Plt Count 130 L MPV 8.9 Absolute Neuts (auto) 9.9 H Neutrophils % 90.5 H Lymphocytes % 4.2 L Monocytes % 5.2 Eosinophils % 0.0 D Basophils % 0.1 Nucleated RBC % 0 PT with INR INR PTT (Actin FS) Anticoagulation Therapy No Result Required. Puncture Site Right radial ABG pH 7.18 L* D ABG pCO2 at Pt Temp 146.0 H* D ABG pO2 at Pt Temp 82.1 ABG HCO3 52.3 H* ABG O2 Sat (Measured) 93.7 ABG O2 Content 17.4 ABG Base Excess 17.5 H* Bebeto Test Positive VBG pH POC VBG pCO2 POC VBG pO2 Mixed VBG HCO3 Carboxyhemoglobin 1.7 Methemoglobin 0.4 O2 Delivery Device No Result Required. Oxygen Flow Rate Yes Vent Mode No Result Required. Vent Rate No Result Required. Mechanical Rate No Result Required. Pressure Support Vent No Result Required. Sodium Potassium Chloride Carbon Dioxide Anion Gap BUN Creatinine Creat Clearance w eGFR POC Glucometer Random Glucose Lactic Acid Calcium Phosphorus Magnesium Total Bilirubin AST ALT Alkaline Phosphatase Troponin I Total Protein Albumin Urine Color Urine Appearance Urine pH Ur Specific [place] Urine Protein Urine Glucose (UA) Urine Ketones Urine Blood Urine Nitrite Urine Bilirubin Urine Urobilinogen Ur Leukocyte Esterase Urine WBC (Auto) Urine RBC (Auto) Calcium Oxalate Crystal Urine Mucus Influenza A (Rapid) Negative Influenza B (Rapid) Negative 09/25/18 09/25/18 09/25/18 05:30 06:20 06:46 WBC RBC Hgb Hct MCV MCH MCHC RDW Plt Count MPV Absolute Neuts (auto) Neutrophils % Lymphocytes % Monocytes % Eosinophils % Basophils % Nucleated RBC % PT with INR INR PTT (Actin FS) Anticoagulation Therapy No Result Required. Puncture Site Right radial ABG pH 7.27 L ABG pCO2 at Pt Temp 126.0 H* D ABG pO2 at Pt Temp 98.5 ABG HCO3 56.0 H* ABG O2 Sat (Measured) 97.3 ABG O2 Content 17.1 ABG Base Excess 23.2 H* Bebeto Test Positive VBG pH POC VBG pCO2 POC VBG pO2 Mixed VBG HCO3 Carboxyhemoglobin Methemoglobin O2 Delivery Device No Result Required. Oxygen Flow Rate 55 Vent Mode No Result Required. Vent Rate 22 Mechanical Rate No Result Required. Pressure Support Vent 14/8 Sodium 143 Potassium 4.7 Chloride 89 L Carbon Dioxide > 45 H Anion Gap 9 BUN 17 Creatinine 0.5 L Creat Clearance w eGFR > 60 POC Glucometer 175 Random Glucose 157 H Lactic Acid Calcium 8.4 L Phosphorus 4.1 Magnesium 2.2 Total Bilirubin 0.4 AST 11 L ALT 18 Alkaline Phosphatase 71 Troponin I Total Protein 6.2 L Albumin 3.0 L Urine Color Urine Appearance Urine pH Ur Specific [place] Urine Protein Urine Glucose (UA) Urine Ketones Urine Blood Urine Nitrite Urine Bilirubin Urine Urobilinogen Ur Leukocyte Esterase Urine WBC (Auto) Urine RBC (Auto) Calcium Oxalate Crystal Urine Mucus Influenza A (Rapid) Influenza B (Rapid) Vital Signs Period Temp Pulse Resp BP Sys/Can Pulse Ox Last 24 Hr 98 F-98.9 F 68-94 18-31 120-138/64-84 71-100 s1s2 rrr distant BS abd soft NT +bs tr edema arousable, confused, but more verbal than yesterday Hypercapnic respiratory failure COPD NADIRA Morbid Obesity improved today BIPAP steroids empiric abx until cultures return gi/dvt prophylaxis riss consult appreciated Problem List - Problems (1) Obesity due to excess calories with serious comorbidity Code(s): E66.09 - OTHER OBESITY DUE TO EXCESS CALORIES Qualifiers: Body mass index: BMI 40.0-44.9 (2) Acute and chronic respiratory failure Code(s): J96.20 - ACUTE AND CHR RESP FAILURE, UNSP W HYPOXIA OR HYPERCAPNIA Qualifiers: Respiratory failure complication: hypoxia and hypercapnia Qualified Code(s) : J96.21 - Acute and chronic respiratory failure with hypoxia; J96.22 - Acute and chronic respiratory failure with hypercapnia (3) COPD (chronic obstructive pulmonary disease) Code(s): J44.9 - CHRONIC OBSTRUCTIVE PULMONARY DISEASE, UNSPECIFIED
[2018-09-25] MEDS ORDERED: PATIENT'S OWN MEDICATION (NON-FORMULARY) (Fluticasone/Vilanterol [Breo Ellipta 200-25 Mcg IN SCH (10:00)
[2018-09-25] MEDS ORDERED: PATIENT'S OWN MEDICATION (NON-FORMULARY) (Umeclidinium Bromide [Incruse Ellipta] 1 PUFF) IN SCH (10:00)
[2018-09-25] MEDS ORDERED: PATIENT'S OWN MEDICATION (NON-FORMULARY) (Tiotropium Bromide [Spiriva] 1 INH) PO SCH (10:00)
[2018-09-25] MEDS: PANTOPRAZOLE SODIUM 40 MG VIAL IVPUSH SCH (10:09)
--- NOTE | 2018-09-25 11:51 | PN ---
Teaching Attending Note Name of Resident: Tahmina Michael ATTENDING PHYSICIAN STATEMENT I saw and evaluated the patient. I reviewed the resident's note and discussed the case with the resident. I agree with the resident's findings and plan as documented. SUBJECTIVE: Pt seen and examined in the ICU. Mental status waxing/waning but arousable. BiPAP settings adjusted. OBJECTIVE: Vital Signs Period Temp Pulse Resp BP Sys/Can Pulse Ox Last 24 Hr 98 F-98.6 F 68-86 18-31 120-138/63-84 85-99 Intake & Output 09/22/18 09/23/18 09/24/18 09/25/18 23:59 23:59 23:59 23:59 Intake Total 300 150 Output Total 700 1000 Balance -400 -850 Weight 155.8 kg 155.8 kg Gen: somnolent on BiPAP Heart: RRR Lung: distant breath sounds Abd: soft, obese, +hernia Ext: trace edema CBC, BMP 09/25/18 05:30 09/25/18 05:30 Active Medications Albuterol Sulfate (Ventolin 0.083% Nebulizer Soln -) 1 amp NEB Q4H PRN PRN Reason: SHORTNESS OF BREATH Albuterol/Ipratropium (Duoneb -) 1 amp NEB RQID [facility] Last Admin: 09/25/18 08:33 Dose: 1 amp Heparin Sodium (Porcine) (Heparin -) 5,000 unit SQ TID [facility] Last Admin: 09/25/18 05:18 Dose: 5,000 unit Levofloxacin (Levaquin 750 Mg Premixed Ivpb -) 750 mg in 150 mls @ 100 mls/hr IVPB DAILY [facility]DO; Protocol Insulin Aspart (Novolog Vial Sliding Scale -) 1 vial SQ BIDAC [facility]; Protocol Last Admin: 09/25/18 06:48 Dose: 2 units Methylprednisolone Sodium Succinate (Solu-Medrol -) 80 mg IVPUSH Q8H-IV [facility] Last Admin: 09/25/18 10:09 Dose: 80 mg Pantoprazole Sodium (Protonix Iv) 40 mg IVPUSH DAILY [facility] Last Admin: 09/25/18 10:09 Dose: 40 mg ASSESSMENT AND PLAN: Acute on Chronic Hypoxic and Hypercapneic Respiratory Failure Acute COPD Exacerbation r/o Pneumonia Severe NADIRA/OHS LV Diastolic Dysfunction Pulmonary HTN Morbid Obesity - continue antibiotics - f/u cultures - continue medrol - inhaled bronchodilators standing and PRN - monitor ABG - continue on BiPAP, settings adjusted - titrate Fio2 to keep Spo2 85-92% - NPO until mental status improved - aspiration precautions - DVT/GI prophylaxis - continue ICU monitoring for tenuous respiratory status critical care time spent in reviewing chart, evaluating patient and formulating plan 35 min
[2018-09-25 13:17] LABS: ARTERIAL BLD GAS O2 SATURATION 92.7 % (90-98.9); ARTERIAL BLOOD GAS BASE EXCESS 24.4 meq/l (-2-2); ARTERIAL BLOOD GAS PO2 66.4 mmHg (80-100); ARTERIAL BLOOD GAS pH 7.34 (7.35-7.45)
[2018-09-25 13:28] LABS: ALLENS TEST POSITIVE
--- NOTE | 2018-09-25 13:47 | PN ---
Physical Exam: SUBJECTIVE: Patient seen and examined this AM in ICU. Alertness and mental status wax and wane. Recalls having increasing SOB over the past few days. OBJECTIVE: Vital Signs Period Temp Pulse Resp BP Sys/Can Pulse Ox Last 24 Hr 98 F-98.6 F 68-91 18-31 120-138/55-84 85-99 GENERAL: A&Ox3, NAD HEAD: NCAT EYES: PERRL, EOMI ENT: Moist mucous membranes NECK: Supple. LUNGS: Diminished Breath Sounds at the bases, Wheezes in the upper lobes, no crackles, wearing BIPap Mask HEART: Regular rate and rhythm, S1, S2 without murmur ABDOMEN: Obese, Soft. Reducible, nontender Midline Umbilical hernia. Diastasis Recti also present. Nontender, nondistended, + bowel sounds, no guarding EXTREMITIES: No edema. NEUROLOGICAL: Cranial nerves II through XII grossly intact. Normal speech SKIN: Warm, dry, Hyperpigmentation over the anterior shins b/l Laboratory Last Values WBC 10.9 K/mm3 (4.0-10.0) H 09/25/18 05:30 RBC 4.24 M/mm3 (4.00-5.60) 09/25/18 05:30 Hgb 12.6 GM/dL (11.7-16.9) 09/25/18 05:30 Hct 37.9 % (35.4-49) 09/25/18 05:30 MCV 89.3 fl (80-96) 09/25/18 05:30 MCH 29.7 pg (25.7-33.7) 09/25/18 05:30 MCHC 33.3 g/dl (32.0-35.9) 09/25/18 05:30 RDW 15.2 % (11.9-15.9) 09/25/18 05:30 Plt Count 130 K/MM3 (134-434) L 09/25/18 05:30 MPV 8.9 fl (7.5-11.1) 09/25/18 05:30 Absolute Neuts (auto) 9.9 K/mm3 (1.5-8.0) H 09/25/18 05:30 Neutrophils % 90.5 % (42.8-82.8) H 09/25/18 05:30 Lymphocytes % 4.2 % (8-40) L 09/25/18 05:30 Monocytes % 5.2 % (3.8-10.2) 09/25/18 05:30 Eosinophils % 0.0 % (0-4.5) D 09/25/18 05:30 Basophils % 0.1 % (0-2.0) 09/25/18 05:30 Nucleated RBC % 0 % (0-0) 09/25/18 05:30 PT with INR 11.70 SEC (9.7-13.0) 09/24/18 12:24 INR 0.99 (0.83-1.09) 09/24/18 12:24 PTT (Actin FS) 23.9 SECONDS (25.2-36.5) L 09/24/18 12:24 Anticoagulation Therapy No Result Required. 09/25/18 06:20 Puncture Site Right radial 09/25/18 06:20 ABG pH 7.27 (7.35-7.45) L 09/25/18 06:20 ABG pCO2 at Pt Temp 126.0 mmHg (35-45) H* D 09/25/18 06:20 ABG pO2 at Pt Temp 98.5 mmHg (80-100) 09/25/18 06:20 ABG HCO3 56.0 meq/L (22-26) H* 09/25/18 06:20 ABG O2 Sat (Measured) 97.3 % (90-98.9) 09/25/18 06:20 ABG O2 Content 17.1 % vol (15-22) 09/25/18 06:20 ABG Base Excess 23.2 meq/l (-2-2) H* 09/25/18 06:20 Bebeto Test Positive 09/25/18 06:20 VBG pH 7.24 (7.32-7.42) L* 09/24/18 12:24 POC VBG pCO2 128.0 mmHg (38-52) H* 09/24/18 12:24 POC VBG pO2 56.5 mmHg (28-48) H 09/24/18 12:24 Mixed VBG HCO3 52.7 meq/L (19-25) H* 09/24/18 12:24 Carboxyhemoglobin 1.7 gm% (0.5-2.0) 09/24/18 14:05 Methemoglobin 0.4 % (0.4-1.5) 09/24/18 14:05 O2 Delivery Device No Result Required. 09/25/18 06:20 Oxygen Flow Rate 55 09/25/18 06:20 Vent Mode No Result Required. 09/25/18 06:20 Vent Rate 22 09/25/18 06:20 Mechanical Rate No Result Required. 09/25/18 06:20 Pressure Support Vent 14/8 09/25/18 06:20 Sodium 143 mmol/L (136-145) 09/25/18 05:30 Potassium 4.7 mmol/L (3.5-5.1) 09/25/18 05:30 Chloride 89 mmol/L (98-107) L 09/25/18 05:30 Carbon Dioxide > 45 mmol/L (21-32) H 09/25/18 05:30 Anion Gap 9 MMOL/L (8-16) 09/25/18 05:30 BUN 17 mg/dL (7-18) 09/25/18 05:30 Creatinine 0.5 mg/dL (0.55-1.3) L 09/25/18 05:30 Creat Clearance w eGFR > 60 (>60) 09/25/18 05:30 POC Glucometer 156 UNITS (80-120) 09/25/18 11:46 Random Glucose 157 mg/dL (74-106) H 09/25/18 05:30 Lactic Acid 1.4 mmol/L (0.4-2.0) 09/24/18 12:21 Calcium 8.4 mg/dL (8.5-10.1) L 09/25/18 05:30 Phosphorus 4.1 mg/dL (2.5-4.9) 09/25/18 05:30 Magnesium 2.2 mg/dL (1.8-2.4) 09/25/18 05:30 Total Bilirubin 0.4 mg/dL (0.2-1) 09/25/18 05:30 AST 11 U/L (15-37) L 09/25/18 05:30 ALT 18 U/L (13-61) 09/25/18 05:30 Alkaline Phosphatase 71 U/L (45-117) 09/25/18 05:30 Troponin I < 0.02 ng/ml (0.00-0.05) 09/24/18 12:24 Total Protein 6.2 g/dl (6.4-8.2) L 09/25/18 05:30 Albumin 3.0 g/dl (3.4-5.0) L 09/25/18 05:30 Urine Color Jessika 09/24/18 12:41 Urine Appearance Clear 09/24/18 12:41 Urine pH 5.0 (5.0-8.0) 09/24/18 12:41 Ur Specific [place] 1.029 (1.010-1.035) 09/24/18 12:41 Urine Protein 2+ (NEGATIVE) H 09/24/18 12:41 Urine Glucose (UA) 1+ (NEGATIVE) H 09/24/18 12:41 Urine Ketones Negative (NEGATIVE) 09/24/18 12:41 Urine Blood Negative (NEGATIVE) 09/24/18 12:41 Urine Nitrite Negative (NEGATIVE) 09/24/18 12:41 Urine Bilirubin Negative (<2.0 mg/dL) 09/24/18 12:41 Urine Urobilinogen 2.0 mg/dL (0.2-1.0) 09/24/18 12:41 Ur Leukocyte Esterase Negative (NEGATIVE) 09/24/18 12:41 Urine WBC (Auto) None /hpf (3-5) 09/24/18 12:41 Urine RBC (Auto) 3 /hpf (0-3) 09/24/18 12:41 Calcium Oxalate Crystal Rare /hpf (NONE SEEN) 09/24/18 12:41 Urine Mucus Rare 09/24/18 12:41 Influenza A (Rapid) Negative 09/24/18 15:32 Influenza B (Rapid) Negative 09/24/18 15:32 Microbiology 09/24/18 12:24 Blood - Peripheral Venous Blood Culture - Preliminary NO GROWTH OBTAINED AFTER 24 HOURS, INCUBATION TO CONTINUE FOR 4 DAYS. 09/24/18 12:24 Blood - Peripheral Venous Blood Culture - Preliminary NO GROWTH OBTAINED AFTER 24 HOURS, INCUBATION TO CONTINUE FOR 4 DAYS. 09/24/18 12:41 Urine - Urine Clean Catch Urine Culture - Final NO GROWTH OBTAINED Active Medications Albuterol Sulfate (Ventolin 0.083% Nebulizer Soln -) 1 amp NEB Q4H PRN PRN Reason: SHORTNESS OF BREATH Albuterol/Ipratropium (Duoneb -) 1 amp NEB RQID [facility] Last Admin: 09/25/18 12:18 Dose: 1 amp Heparin Sodium (Porcine) (Heparin -) 5,000 unit SQ TID [facility] Last Admin: 09/25/18 05:18 Dose: 5,000 unit Levofloxacin (Levaquin 750 Mg Premixed Ivpb -) 750 mg in 150 mls @ 100 mls/hr IVPB DAILY [facility]; Protocol Insulin Aspart (Novolog Vial Sliding Scale -) 1 vial SQ BIDAC [facility]; Protocol Last Admin: 09/25/18 06:48 Dose: 2 units Methylprednisolone Sodium Succinate (Solu-Medrol -) 80 mg IVPUSH Q8H-IV [facility] Last Admin: 09/25/18 10:09 Dose: 80 mg Pantoprazole Sodium (Protonix Iv) 40 mg IVPUSH DAILY [facility] Last Admin: 09/25/18 10:09 Dose: 40 mg ASSESSMENT/PLAN: 62 y/o M with PMHx of COPD, CHF, who was recently d/c'ed from [facility] in 06/2018, found to be in Acute Hypoxic, Hypercapnic Respiratory Failure and will be monitored in ICU. #Neuro Mental status waxes and wanes this AM -Likely due to Hypercapnia -Keep NPO until mental status improves -Aspiration precautions -Continue to monitor #Cardio Hx of Diastolic CHF -Trop < 0.02 -EKG: NSR, LAD, VR 83, QTc 399 -Resume home dose Anti-HTNs when taking PO #Pulmonary Acute Hypoxic, Hypercapnic Respiratory Failure Hx of COPD, NADIRA -Likely due to COPD Exacerbation, Noncompliance with Bipap at home -ABG shows improvement; Repeat pending -CXR: Superimposed left base infiltrate and/or atelectasis may be present. Atelectasis at the right base. -Continue Bipap -IV Levofloxacin 750mg Daily (Started on 09/24) -IV Methylprednisolone 80mg Q8H -Albuterol Nebulizer Q4H PRN, Albuterol/Ipratropium QID -Supplemental O2 to maintain SpO2 85-92% #GI Morbid Obesity -Pantoprazole -Will need outpatient follow up for tighter weight control, possibly bariatric surgery #Renal -No Active issues, COntinue to monitor #Heme Thrombocytopenia -Plt count downtrending; Continue to monitor #Endo Elevated Blood Glucose -BGMs ISS ACHS #ID Leukocytosis, Improving -Afebrile -LA 1.4 -UA: LE and Nitrite negative, WBC None -Influenza negative -Urine Cx negative; Blood cx NGTD #FEN -PO Fluids -Lytes WNL -NPO #PPx -DVT: Heparin TID -GI: Pantoprazole Code Status: Full Code Dispo: Continue to monitor in ICU Visit type - Emergency Visit Emergency Visit: Yes ED Registration Date: 09/24/18 Care time: The patient presented to the Emergency Department on the above date and was hospitalized for further evaluation of their emergent condition. - New Patient This patient is new to me today: Yes Date on this admission: 09/25/18 - Critical Care Critical Care patient: Yes Total Critical Care Time (in minutes): 40 Critical Care Statement: The care of this patient involved high complexity decision making to prevent further life threatening deterioration of the patient 's condition and/or to evaluate & treat vital organ system(s) failure or risk of failure.
[2018-09-25] MEDS ORDERED: INSULIN (NOVOLOG) ASPART 100 UNITS/ML 10ML VIAL ONE (18:06)
[2018-09-25] MEDS ORDERED: LIDOCAINE HCL 2% JELLY 10 ML CARTRIDGE UR ONE (21:08)
[2018-09-26] MEDS: methylPREDNISolone NA SUCC 40 MG/1 ML VIAL IVPUSH SCH ×3 (01:00→17:17)
[2018-09-26 06:22] LABS: BASO % 0.1 % (0-2.0); EOS % 0.2 % (0-4.5); HEMATOCRIT 39.9 % (35.4-49); LYMPH % 4.3 % (8-40); MCH 28.9 pg (25.7-33.7); MCHC 32.6 g/dl (32.0-35.9); MEAN CELL VOLUME 88.7 fl (80-96); MEAN PLT VOLUME 9.1 fl (7.5-11.1); MONO % 1.9 % (3.8-10.2); NEUT % 93.5 % (42.8-82.8); PLATELET COUNT 133 K/MM3 (134-434); RDW 15.2 % (11.9-15.9); WHITE BLOOD COUNT 10.6 K/mm3 (4.0-10.0)
[2018-09-26] MEDS: INSULIN SLIDING SCALE (NOVOLOG) 1 VIAL SQ SCH ×2 (06:27→17:00)
[2018-09-26] MEDS: HEPARIN NA (PORCINE) 5,000 UNITS/ML 1ML VIAL SQ SCH ×3 (06:27→21:23)
[2018-09-26 06:56] LABS: ARTERIAL BLD GAS O2 SATURATION 96.2 % (90-98.9); ARTERIAL BLOOD GAS BASE EXCESS 21.1 meq/l (-2-2); ARTERIAL BLOOD GAS PCO2 77.8 mmHg (35-45); ARTERIAL BLOOD GAS PO2 79.6 mmHg (80-100); ARTERIAL BLOOD GAS pH 7.42 (7.35-7.45)
[2018-09-26 07:47] LABS: ALLENS TEST POSITIVE
[2018-09-26 08:33] LABS: ALBUMIN 3.3 g/dl (3.4-5.0); ALK PHOS 62 U/L (45-117); ANION GAP 7 MMOL/L (8-16); BILIRUBIN,TOTAL 0.8 mg/dL (0.2-1); BLOOD UREA NITROGEN 24 mg/dL (7-18); CHLORIDE 89 mmol/L (98-107); CO2 > 45 mmol/L (21-32); CREATININE 0.6 mg/dL (0.55-1.3); GLUCOSE,RANDOM 192 mg/dL (74-106); MAGNESIUM 2.1 mg/dL (1.8-2.4); PHOSPHOROUS 2.2 mg/dL (2.5-4.9); POTASSIUM 4.1 mmol/L (3.5-5.1); SGOT/AST 12 U/L (15-37); SGPT/ALT 23 U/L (13-61); SODIUM 142 mmol/L (136-145); TOT PROT 6.1 g/dl (6.4-8.2)
[2018-09-26] MEDS: PANTOPRAZOLE SODIUM 40 MG VIAL IVPUSH SCH (09:12)
--- NOTE | 2018-09-26 09:51 | PN ---
Progress Note (short form) - Note Progress Note: Laboratory Results - last 24 hr 09/25/18 09/25/18 09/25/18 11:46 12:45 18:01 WBC RBC Hgb Hct MCV MCH MCHC RDW Plt Count MPV Absolute Neuts (auto) Neutrophils % Lymphocytes % Monocytes % Eosinophils % Basophils % Nucleated RBC % Puncture Site Left radial ABG pH 7.34 L ABG pCO2 at Pt Temp 108.0 H* ABG pO2 at Pt Temp 66.4 L D ABG HCO3 55.9 H* ABG O2 Sat (Measured) 92.7 ABG O2 Content 16.0 ABG Base Excess 24.4 H* Bebeto Test Positive O2 Delivery Device Bipap Oxygen Flow Rate 40% Vent Mode S/t Vent Rate 22 Mechanical Rate Bipap Pressure Support Vent 18/10 Sodium Potassium Chloride Carbon Dioxide Anion Gap BUN Creatinine Creat Clearance w eGFR POC Glucometer 156 170 Random Glucose Calcium Phosphorus Magnesium Total Bilirubin AST ALT Alkaline Phosphatase Total Protein Albumin 09/26/18 09/26/18 09/26/18 05:30 05:30 05:40 WBC 10.6 H RBC 4.50 Hgb 13.0 Hct 39.9 MCV 88.7 MCH 28.9 MCHC 32.6 RDW 15.2 Plt Count 133 L MPV 9.1 Absolute Neuts (auto) 9.9 H Neutrophils % 93.5 H Lymphocytes % 4.3 L Monocytes % 1.9 L Eosinophils % 0.2 D Basophils % 0.1 Nucleated RBC % 0 Puncture Site ABG pH ABG pCO2 at Pt Temp ABG pO2 at Pt Temp ABG HCO3 ABG O2 Sat (Measured) ABG O2 Content ABG Base Excess Bebeto Test O2 Delivery Device Oxygen Flow Rate Vent Mode Vent Rate Mechanical Rate Pressure Support Vent Sodium 142 Potassium 4.1 Chloride 89 L Carbon Dioxide > 45 H Anion Gap 7 L BUN 24 H Creatinine 0.6 Creat Clearance w eGFR > 60 POC Glucometer 178 Random Glucose 192 H Calcium 9.0 Phosphorus 2.2 L Magnesium 2.1 Total Bilirubin 0.8 AST 12 L ALT 23 Alkaline Phosphatase 62 Total Protein 6.1 L Albumin 3.3 L 09/26/18 06:00 WBC RBC Hgb Hct MCV MCH MCHC RDW Plt Count MPV Absolute Neuts (auto) Neutrophils % Lymphocytes % Monocytes % Eosinophils % Basophils % Nucleated RBC % Puncture Site Right radial ABG pH 7.42 ABG pCO2 at Pt Temp 77.8 H* D ABG pO2 at Pt Temp 79.6 L ABG HCO3 49.8 H* ABG O2 Sat (Measured) 96.2 ABG O2 Content 15.9 ABG Base Excess 21.1 H* Bebeto Test Positive O2 Delivery Device Oxygen Flow Rate Yes Vent Mode Vent Rate Mechanical Rate Pressure Support Vent Bipap Sodium Potassium Chloride Carbon Dioxide Anion Gap BUN Creatinine Creat Clearance w eGFR POC Glucometer Random Glucose Calcium Phosphorus Magnesium Total Bilirubin AST ALT Alkaline Phosphatase Total Protein Albumin Vital Signs Period Temp Pulse Resp BP Sys/Can Pulse Ox Last 24 Hr 98.5 F-99.1 F 55-91 18-22 121-159/55-77 91-98 s1s2 rrr distant BS abd soft NT +bs tr edema awake, alert but confused, slightly agitated Hypercapnic respiratory failure COPD NADIRA Morbid Obesity much improved today BIPAP steroids empiric abx until cultures return gi/dvt prophylaxis riss consult appreciated can start diet transfer as per icu team Problem List - Problems (1) Obesity due to excess calories with serious comorbidity Code(s): E66.09 - OTHER OBESITY DUE TO EXCESS CALORIES Qualifiers: Body mass index: BMI 40.0-44.9 (2) Acute and chronic respiratory failure Code(s): J96.20 - ACUTE AND CHR RESP FAILURE, UNSP W HYPOXIA OR HYPERCAPNIA Qualifiers: Respiratory failure complication: hypoxia and hypercapnia Qualified Code(s) : J96.21 - Acute and chronic respiratory failure with hypoxia; J96.22 - Acute and chronic respiratory failure with hypercapnia (3) COPD (chronic obstructive pulmonary disease) Code(s): J44.9 - CHRONIC OBSTRUCTIVE PULMONARY DISEASE, UNSPECIFIED
--- NOTE | 2018-09-26 10:34 | PN ---
Teaching Attending Note Name of Resident: Tahmina Michael ATTENDING PHYSICIAN STATEMENT I saw and evaluated the patient. I reviewed the resident's note and discussed the case with the resident. I agree with the resident's findings and plan as documented. SUBJECTIVE: Pt seen and examined in the ICU. Agitated overnight. Remains on BiPAP, arousable. Son at bedside. ABG with normalizing pH. OBJECTIVE: Vital Signs Period Temp Pulse Resp BP Sys/Can Pulse Ox Last 24 Hr 98.7 F-99.1 F 55-91 18-22 131-159/55-77 95-98 Intake & Output 09/23/18 09/24/18 09/25/18 09/26/18 23:59 23:59 23:59 23:59 Intake Total 300 160 60 Output Total 700 1000 1050 Balance -400 -840 -990 Weight 155.8 kg 155.8 kg 151.1 kg Gen: somnolent but arousable on BiPAP Heart: RRR Lung: distant breath sounds Abd: soft, obese, +hernia Ext: + edema CBC, BMP 09/26/18 05:30 09/26/18 05:30 Active Medications Albuterol Sulfate (Ventolin 0.083% Nebulizer Soln -) 1 amp NEB Q4H PRN PRN Reason: SHORTNESS OF BREATH Albuterol/Ipratropium (Duoneb -) 1 amp NEB RQID [facility] Last Admin: 09/25/18 20:56 Dose: 1 amp Heparin Sodium (Porcine) (Heparin -) 5,000 unit SQ TID [facility] Last Admin: 09/26/18 06:27 Dose: 5,000 unit Levofloxacin (Levaquin 750 Mg Premixed Ivpb -) 750 mg in 150 mls @ 100 mls/hr IVPB DAILY [facility]; Protocol Last Admin: 09/26/18 09:11 Dose: 100 mls/hr Insulin Aspart (Novolog Vial Sliding Scale -) 1 vial SQ BIDAC [facility]; Protocol Last Admin: 09/26/18 06:27 Dose: 2 units Methylprednisolone Sodium Succinate (Solu-Medrol -) 60 mg IVPUSH Q8H-IV [facility] Pantoprazole Sodium (Protonix Iv) 40 mg IVPUSH DAILY [facility] Last Admin: 09/26/18 09:12 Dose: 40 mg ASSESSMENT AND PLAN: Acute on Chronic Hypoxic and Hypercapneic Respiratory Failure Acute COPD Exacerbation r/o Pneumonia Severe NADIRA/OHS LV Diastolic Dysfunction Pulmonary HTN Morbid Obesity - continue empiric antibiotics - f/u cultures - taper medrol - inhaled bronchodilators standing and PRN - monitor ABG - continue on BiPAP, settings adjusted - titrate Fio2 to keep Spo2 85-92% - NPO until mental status improved - aspiration precautions - DVT/GI prophylaxis - continue ICU monitoring for tenuous respiratory status critical care time spent in reviewing chart, evaluating patient and formulating plan 35 min
--- NOTE | 2018-09-26 10:42 | PN ---
Physical Exam: SUBJECTIVE: Patient seen and examined this AM in ICU. Agitated overnight. Mental status continues to wax and wane. OBJECTIVE: Vital Signs Period Temp Pulse Resp BP Sys/Can Pulse Ox Last 24 Hr 98.7 F-99.1 F 55-91 18-22 131-159/55-77 95-98 GENERAL: Mental status waxes and wanes HEAD: NCAT EYES: PERRL, EOMI ENT: Moist mucous membranes NECK: Supple. LUNGS: Diminished Breath Sounds at the bases, wearing Bipap Mask HEART: Regular rate and rhythm, S1, S2 without murmur ABDOMEN: Obese, Soft. Reducible, nontender Midline Umbilical hernia. Diastasis Recti also present. Nontender, nondistended, + bowel sounds, no guarding EXTREMITIES: 1+ edema NEUROLOGICAL: Cranial nerves II through XII grossly intact. Normal speech SKIN: Warm, dry, Hyperpigmentation over the anterior shins b/l Laboratory Results - last 24 hr 09/26/18 09/26/18 09/26/18 05:30 05:30 05:40 WBC 10.6 H RBC 4.50 Hgb 13.0 Hct 39.9 MCV 88.7 MCH 28.9 MCHC 32.6 RDW 15.2 Plt Count 133 L MPV 9.1 Absolute Neuts (auto) 9.9 H Neutrophils % 93.5 H Lymphocytes % 4.3 L Monocytes % 1.9 L Eosinophils % 0.2 D Basophils % 0.1 Nucleated RBC % 0 Puncture Site ABG pH ABG pCO2 at Pt Temp ABG pO2 at Pt Temp ABG HCO3 ABG O2 Sat (Measured) ABG O2 Content ABG Base Excess Bebeto Test O2 Delivery Device Oxygen Flow Rate Vent Mode Vent Rate Mechanical Rate Pressure Support Vent Sodium 142 Potassium 4.1 Chloride 89 L Carbon Dioxide > 45 H Anion Gap 7 L BUN 24 H Creatinine 0.6 Creat Clearance w eGFR > 60 POC Glucometer 178 Random Glucose 192 H Calcium 9.0 Phosphorus 2.2 L Magnesium 2.1 Total Bilirubin 0.8 AST 12 L ALT 23 Alkaline Phosphatase 62 Total Protein 6.1 L Albumin 3.3 L 09/26/18 06:00 WBC RBC Hgb Hct MCV MCH MCHC RDW Plt Count MPV Absolute Neuts (auto) Neutrophils % Lymphocytes % Monocytes % Eosinophils % Basophils % Nucleated RBC % Puncture Site Right radial ABG pH 7.42 ABG pCO2 at Pt Temp 77.8 H* D ABG pO2 at Pt Temp 79.6 L ABG HCO3 49.8 H* ABG O2 Sat (Measured) 96.2 ABG O2 Content 15.9 ABG Base Excess 21.1 H* Bebeto Test Positive O2 Delivery Device Oxygen Flow Rate Yes Vent Mode Vent Rate Mechanical Rate Pressure Support Vent Bipap Sodium Potassium Chloride Carbon Dioxide Anion Gap BUN Creatinine Creat Clearance w eGFR POC Glucometer Random Glucose Calcium Phosphorus Magnesium Total Bilirubin AST ALT Alkaline Phosphatase Total Protein Albumin Microbiology 09/24/18 12:24 Blood - Peripheral Venous Blood Culture - Preliminary NO GROWTH OBTAINED AFTER 24 HOURS, INCUBATION TO CONTINUE FOR 4 DAYS. 09/24/18 12:24 Blood - Peripheral Venous Blood Culture - Preliminary NO GROWTH OBTAINED AFTER 24 HOURS, INCUBATION TO CONTINUE FOR 4 DAYS. 09/24/18 12:41 Urine - Urine Clean Catch Urine Culture - Final NO GROWTH OBTAINED Active Medications Albuterol Sulfate (Ventolin 0.083% Nebulizer Soln -) 1 amp NEB Q4H PRN PRN Reason: SHORTNESS OF BREATH Albuterol/Ipratropium (Duoneb -) 1 amp NEB RQID [facility] Last Admin: 09/25/18 20:56 Dose: 1 amp Heparin Sodium (Porcine) (Heparin -) 5,000 unit SQ TID [facility] Last Admin: 09/26/18 06:27 Dose: 5,000 unit Levofloxacin (Levaquin 750 Mg Premixed Ivpb -) 750 mg in 150 mls @ 100 mls/hr IVPB DAILY [facility]; Protocol Last Admin: 09/26/18 09:11 Dose: 100 mls/hr Insulin Aspart (Novolog Vial Sliding Scale -) 1 vial SQ BIDAC [facility]; Protocol Last Admin: 09/26/18 06:27 Dose: 2 units Methylprednisolone Sodium Succinate (Solu-Medrol -) 60 mg IVPUSH Q8H-IV [facility] Pantoprazole Sodium (Protonix Iv) 40 mg IVPUSH DAILY [facility] Last Admin: 09/26/18 09:12 Dose: 40 mg ASSESSMENT/PLAN: 62 y/o M with PMHx of COPD, CHF, who was recently d/c'ed from [facility] in 06/2018, found to be in Acute Hypoxic, Hypercapnic Respiratory Failure and will be monitored in ICU. #Neuro Mental status waxes and wanes -Likely due to Hypercapnia -Keep NPO until mental status improves -Aspiration precautions -Continue to monitor #Cardio Hx of Diastolic CHF -Trop < 0.02 -EKG: NSR, LAD, VR 83, QTc 399 -Resume home dose Anti-HTNs when taking PO #Pulmonary Acute Hypoxic, Hypercapnic Respiratory Failure Hx of COPD, NADIRA -Likely due to COPD Exacerbation, Noncompliance with Bipap at home -ABG shows improvement -CXR: Superimposed left base infiltrate and/or atelectasis may be present. Atelectasis at the right base. -Continue Bipap; Will try Nasal canulla this evening -IV Levofloxacin 750mg Daily (Started on 09/24) -IV Methylprednisolone decreased to 60mg Q8H -Albuterol Nebulizer Q4H PRN, Albuterol/Ipratropium QID -Supplemental O2 to maintain SpO2 85-92% #GI Morbid Obesity -Pantoprazole -Will need outpatient follow up for tighter weight control, possibly bariatric surgery -Dr. Rodriguez consulted #Renal -No Active issues, Continue to monitor #Heme Thrombocytopenia -Plt count downtrending; Continue to monitor #Endo Elevated Blood Glucose -BGMs ISS ACHS #ID Leukocytosis, Improving -Afebrile -LA 1.4 -UA: LE and Nitrite negative, WBC None -Influenza negative -Urine Cx negative; Blood cx NGTD #FEN -PO Fluids -Lytes WNL -NPO; Soft diet when able to take PO #PPx -DVT: Heparin TID -GI: Pantoprazole Code Status: Full Code Dispo: Continue to monitor in ICU Visit type - Emergency Visit Emergency Visit: Yes ED Registration Date: 09/24/18 Care time: The patient presented to the Emergency Department on the above date and was hospitalized for further evaluation of their emergent condition. - New Patient This patient is new to me today: No - Critical Care Critical Care patient: Yes Total Critical Care Time (in minutes): 36 Critical Care Statement: The care of this patient involved high complexity decision making to prevent further life threatening deterioration of the patient 's condition and/or to evaluate & treat vital organ system(s) failure or risk of failure.
[2018-09-26 11:09] LABS: ANISOCYTOSIS 0; MACROCYTOSIS 0; PLATELET ESTIMATE DECREASED
[2018-09-26] MEDS: ALBUTEROL SO4 2.5/IPRATROPIUM 0.5 INH SOL 3 ML VIAL.NEB. NEB SCH ×4 (11:21→20:31)
[2018-09-26 12:33] VITALS: BMI 42.7
[2018-09-26] MEDS: LORATADINE 10 MG TABLET PO SCH (12:35)
[2018-09-27] MEDS: methylPREDNISolone NA SUCC 40 MG/1 ML VIAL IVPUSH SCH ×3 (01:49→17:27)
[2018-09-27] MEDS: HEPARIN NA (PORCINE) 5,000 UNITS/ML 1ML VIAL SQ SCH ×3 (06:16→22:42)
[2018-09-27] MEDS: INSULIN SLIDING SCALE (NOVOLOG) 1 VIAL SQ SCH ×2 (06:16→16:05)
[2018-09-27 06:20] LABS: HEMATOCRIT 39.7 % (35.4-49); HEMOGLOBIN 13.1 GM/dL (11.7-16.9); LYMPH % 6.8 % (8-40); MCH 28.8 pg (25.7-33.7); MCHC 32.9 g/dl (32.0-35.9); MEAN CELL VOLUME 87.3 fl (80-96); MONO % 6.6 % (3.8-10.2); NEUT % 86.6 % (42.8-82.8); PLATELET COUNT 127 K/MM3 (134-434); RBC 4.55 M/mm3 (4.00-5.60); RDW 15.5 % (11.9-15.9); WHITE BLOOD COUNT 7.7 K/mm3 (4.0-10.0)
[2018-09-27 06:58] LABS: ARTERIAL BLD GAS O2 SATURATION 91.2 % (90-98.9); ARTERIAL BLOOD GAS BASE EXCESS 17.3 meq/l (-2-2); ARTERIAL BLOOD GAS PO2 65.7 mmHg (80-100)
[2018-09-27 07:07] LABS: ALLENS TEST POSITIVE
[2018-09-27] MEDS: ALBUTEROL SO4 2.5/IPRATROPIUM 0.5 INH SOL 3 ML VIAL.NEB. NEB SCH ×4 (07:25→20:50)
[2018-09-27 07:47] LABS: ALBUMIN 3.2 g/dl (3.4-5.0); ALK PHOS 58 U/L (45-117); ANION GAP 5 MMOL/L (8-16); BILIRUBIN,TOTAL 0.7 mg/dL (0.2-1); BLOOD UREA NITROGEN 24 mg/dL (7-18); CALCIUM 9.1 mg/dL (8.5-10.1); CHLORIDE 93 mmol/L (98-107); CO2 42 mmol/L (21-32); CREATININE 0.7 mg/dL (0.55-1.3); GLUCOSE,RANDOM 169 mg/dL (74-106); MAGNESIUM 2.3 mg/dL (1.8-2.4); PHOSPHOROUS 4.3 mg/dL (2.5-4.9); POTASSIUM 4.5 mmol/L (3.5-5.1); SGOT/AST 32 U/L (15-37); SGPT/ALT 26 U/L (13-61); SODIUM 139 mmol/L (136-145); TOT PROT 6.2 g/dl (6.4-8.2)
--- NOTE | 2018-09-27 08:44 | PN ---
Progress Note (short form) - Note Progress Note: CBC, BMP 09/27/18 05:30 09/27/18 05:30 Vital Signs Period Temp Pulse Resp BP Sys/Can Pulse Ox Last 24 Hr 98.1 F-99.1 F 54-98 19-28 122-148/72-97 91-98 s1s2 rrr distant BS occ wheeze abd soft NT +bs tr edema awake, alert, oriented x3 Hypercapnic respiratory failure COPD NADIRA Morbid Obesity much improved today BIPAP atnight O2 steroid taper empiric abx gi/dvt prophylaxis riss awaiting transfer wilfredo belcher pt is anxious to go home, will defer to pulmonary Problem List - Problems (1) Obesity due to excess calories with serious comorbidity Code(s): E66.09 - OTHER OBESITY DUE TO EXCESS CALORIES Qualifiers: Body mass index: BMI 40.0-44.9 (2) Acute and chronic respiratory failure Code(s): J96.20 - ACUTE AND CHR RESP FAILURE, UNSP W HYPOXIA OR HYPERCAPNIA Qualifiers: Respiratory failure complication: hypoxia and hypercapnia Qualified Code(s) : J96.21 - Acute and chronic respiratory failure with hypoxia; J96.22 - Acute and chronic respiratory failure with hypercapnia (3) COPD (chronic obstructive pulmonary disease) Code(s): J44.9 - CHRONIC OBSTRUCTIVE PULMONARY DISEASE, UNSPECIFIED
[2018-09-27] MEDS: LORATADINE 10 MG TABLET PO SCH (09:54)
[2018-09-27] MEDS: PANTOPRAZOLE SODIUM 40 MG VIAL IVPUSH SCH (09:55)
--- NOTE | 2018-09-27 11:59 | PN ---
Teaching Attending Note Name of Resident: Tahmina Michael ATTENDING PHYSICIAN STATEMENT I saw and evaluated the patient. I reviewed the resident's note and discussed the case with the resident. I agree with the resident's findings and plan as documented. SUBJECTIVE: Patient seen and examined in the ICU. More awake and alert. ABG improving. Currently on 3.5 L NC O2. NIPPV overnight. Son at the bedside, concern that his home NIPPV device is not working effectively. OBJECTIVE: Intake & Output 09/24/18 09/25/18 09/26/18 09/27/18 23:59 23:59 23:59 23:59 Intake Total 300 160 890 300 Output Total 700 1000 1950 500 Balance -400 -840 -1060 -200 Weight 343 lb 7.683 oz 343 lb 7.683 oz 333 lb Last Vital Signs Temp Pulse Resp BP Pulse Ox 99.3 F 86 25 H 126/77 92 L 09/27/18 10:00 09/27/18 10:00 09/27/18 10:00 09/27/18 10:00 09/27/18 08:14 Active Medications Albuterol Sulfate (Ventolin 0.083% Nebulizer Soln -) 1 amp NEB Q4H PRN PRN Reason: SHORTNESS OF BREATH Albuterol/Ipratropium (Duoneb -) 1 amp NEB RQID [facility] Last Admin: 09/27/18 11:30 Dose: 1 amp Heparin Sodium (Porcine) (Heparin -) 5,000 unit SQ TID [facility] Last Admin: 09/27/18 06:16 Dose: 5,000 unit Levofloxacin (Levaquin 750 Mg Premixed Ivpb -) 750 mg in 150 mls @ 100 mls/hr IVPB DAILY [facility]; Protocol Last Admin: 09/27/18 09:54 Dose: 100 mls/hr Insulin Aspart (Novolog Vial Sliding Scale -) 1 vial SQ BIDAC [facility]; Protocol Last Admin: 09/27/18 06:16 Dose: Not Given Loratadine (Claritin -) 10 mg PO DAILY [facility] Last Admin: 09/27/18 09:54 Dose: 10 mg Methylprednisolone Sodium Succinate (Solu-Medrol -) 40 mg IVPUSH Q8H-IV [facility] Last Admin: 09/27/18 09:56 Dose: 40 mg Pantoprazole Sodium (Protonix Iv) 40 mg IVPUSH DAILY [facility] Last Admin: 09/27/18 09:55 Dose: 40 mg Gen: Awake and alert on NC O2 Heart: RRR Lung: distant breath sounds Abd: soft, obese, +hernia Ext: + edema Laboratory Results - last 24 hr 09/26/18 09/27/18 09/27/18 16:55 05:30 05:30 WBC 7.7 RBC 4.55 Hgb 13.1 Hct 39.7 MCV 87.3 MCH 28.8 MCHC 32.9 RDW 15.5 Plt Count 127 L MPV 9.0 Absolute Neuts (auto) 6.7 Neutrophils % 86.6 H Lymphocytes % 6.8 L D Monocytes % 6.6 D Eosinophils % 0.0 D Basophils % 0.0 Nucleated RBC % 0 Anticoagulation Therapy Puncture Site ABG pH ABG pCO2 at Pt Temp ABG pO2 at Pt Temp ABG HCO3 ABG O2 Sat (Measured) ABG O2 Content ABG Base Excess Bebeto Test O2 Delivery Device Oxygen Flow Rate Vent Mode Vent Rate Mechanical Rate Pressure Support Vent Sodium 139 Potassium 4.5 Chloride 93 L Carbon Dioxide 42 H Anion Gap 5 L BUN 24 H Creatinine 0.7 Creat Clearance w eGFR > 60 POC Glucometer 241 Random Glucose 169 H Calcium 9.1 Phosphorus 4.3 Magnesium 2.3 Total Bilirubin 0.7 AST 32 ALT 26 Alkaline Phosphatase 58 Total Protein 6.2 L Albumin 3.2 L 09/27/18 09/27/18 05:49 06:45 WBC RBC Hgb Hct MCV MCH MCHC RDW Plt Count MPV Absolute Neuts (auto) Neutrophils % Lymphocytes % Monocytes % Eosinophils % Basophils % Nucleated RBC % Anticoagulation Therapy No Result Required. Puncture Site Right radial ABG pH 7.40 ABG pCO2 at Pt Temp 75.0 H* ABG pO2 at Pt Temp 65.7 L ABG HCO3 45.9 H* ABG O2 Sat (Measured) 91.2 ABG O2 Content 16.3 ABG Base Excess 17.3 H* Bebeto Test Positive O2 Delivery Device Nasal Oxygen Flow Rate 3l Vent Mode No Result Required. Vent Rate No Result Required. Mechanical Rate No Result Required. Pressure Support Vent No Result Required. Sodium Potassium Chloride Carbon Dioxide Anion Gap BUN Creatinine Creat Clearance w eGFR POC Glucometer 182 Random Glucose Calcium Phosphorus Magnesium Total Bilirubin AST ALT Alkaline Phosphatase Total Protein Albumin ASSESSMENT AND PLAN: Acute on Chronic Hypoxic and Hypercapneic Respiratory Failure Acute COPD Exacerbation r/o Pneumonia Severe NADIRA/OHS LV Diastolic Dysfunction Pulmonary HTN Morbid Obesity - Antibiotics - f/u cultures - taper medrol today - inhaled bronchodilators standing and PRN - continue on NIPPV at the same settings - PO as tolerated - Aspiration precautions - DVT/GI prophylaxis - 4W / 4S monitoring Dr Jasmine Problem List - Problems (1) Acute and chronic respiratory failure Code(s): J96.20 - ACUTE AND CHR RESP FAILURE, UNSP W HYPOXIA OR HYPERCAPNIA Qualifiers: Respiratory failure complication: hypoxia and hypercapnia Qualified Code(s) : J96.21 - Acute and chronic respiratory failure with hypoxia; J96.22 - Acute and chronic respiratory failure with hypercapnia (2) Obesity hypoventilation syndrome Code(s): E66.2 - MORBID (SEVERE) OBESITY WITH ALVEOLAR HYPOVENTILATION (3) Acute exacerbation of chronic obstructive airways disease Code(s): J44.1 - CHRONIC OBSTRUCTIVE PULMONARY DISEASE W (ACUTE) EXACERBATION (4) Pulmonary vascular congestion Code(s): R09.89 - OTH SYMPTOMS AND SIGNS INVOLVING THE CIRC AND RESP SYSTEMS (5) Acute respiratory acidosis Code(s): E87.2 - ACIDOSIS (6) COPD (chronic obstructive pulmonary disease) Code(s): J44.9 - CHRONIC OBSTRUCTIVE PULMONARY DISEASE, UNSPECIFIED
--- NOTE | 2018-09-27 16:05 | PN ---
Physical Exam: SUBJECTIVE: Patient seen and examined this AM in ICU. Mental status improved. No new complaints. No Acute overnight events. OBJECTIVE: Vital Signs Period Temp Pulse Resp BP Sys/Can Pulse Ox Last 24 Hr 98.0 F-99.3 F 54-94 19-28 118-148/46-97 91-97 GENERAL: A&Ox3, NAD HEAD: NCAT EYES: PERRL, EOMI ENT: Moist mucous membranes NECK: Supple LUNGS: Diminished Breath Sounds at the bases, HEART: Regular rate and rhythm, S1, S2 without murmur ABDOMEN: Obese, Soft. Reducible, nontender Midline Umbilical hernia. Diastasis Recti also present. Nontender, nondistended, + bowel sounds, no guarding EXTREMITIES: 1+ edema NEUROLOGICAL: Cranial nerves II through XII grossly intact. Normal speech SKIN: Warm, dry, Hyperpigmentation over the anterior shins b/l Laboratory Results - last 24 hr 09/26/18 09/27/18 09/27/18 16:55 05:30 05:30 WBC 7.7 RBC 4.55 Hgb 13.1 Hct 39.7 MCV 87.3 MCH 28.8 MCHC 32.9 RDW 15.5 Plt Count 127 L MPV 9.0 Absolute Neuts (auto) 6.7 Neutrophils % 86.6 H Lymphocytes % 6.8 L D Monocytes % 6.6 D Eosinophils % 0.0 D Basophils % 0.0 Nucleated RBC % 0 Anticoagulation Therapy Puncture Site ABG pH ABG pCO2 at Pt Temp ABG pO2 at Pt Temp ABG HCO3 ABG O2 Sat (Measured) ABG O2 Content ABG Base Excess Bebeto Test O2 Delivery Device Oxygen Flow Rate Vent Mode Vent Rate Mechanical Rate Pressure Support Vent Sodium 139 Potassium 4.5 Chloride 93 L Carbon Dioxide 42 H Anion Gap 5 L BUN 24 H Creatinine 0.7 Creat Clearance w eGFR > 60 POC Glucometer 241 Random Glucose 169 H Calcium 9.1 Phosphorus 4.3 Magnesium 2.3 Total Bilirubin 0.7 AST 32 ALT 26 Alkaline Phosphatase 58 Total Protein 6.2 L Albumin 3.2 L 09/27/18 09/27/18 05:49 06:45 WBC RBC Hgb Hct MCV MCH MCHC RDW Plt Count MPV Absolute Neuts (auto) Neutrophils % Lymphocytes % Monocytes % Eosinophils % Basophils % Nucleated RBC % Anticoagulation Therapy No Result Required. Puncture Site Right radial ABG pH 7.40 ABG pCO2 at Pt Temp 75.0 H* ABG pO2 at Pt Temp 65.7 L ABG HCO3 45.9 H* ABG O2 Sat (Measured) 91.2 ABG O2 Content 16.3 ABG Base Excess 17.3 H* Bebeto Test Positive O2 Delivery Device Nasal Oxygen Flow Rate 3l Vent Mode No Result Required. Vent Rate No Result Required. Mechanical Rate No Result Required. Pressure Support Vent No Result Required. Sodium Potassium Chloride Carbon Dioxide Anion Gap BUN Creatinine Creat Clearance w eGFR POC Glucometer 182 Random Glucose Calcium Phosphorus Magnesium Total Bilirubin AST ALT Alkaline Phosphatase Total Protein Albumin Microbiology 09/24/18 12:24 Blood - Peripheral Venous Blood Culture - Preliminary NO GROWTH OBTAINED AFTER 72 HOURS, INCUBATION TO CONTINUE FOR 2 DAYS. 09/24/18 12:24 Blood - Peripheral Venous Blood Culture - Preliminary NO GROWTH OBTAINED AFTER 72 HOURS, INCUBATION TO CONTINUE FOR 2 DAYS. 09/24/18 12:41 Urine - Urine Clean Catch Urine Culture - Final NO GROWTH OBTAINED Active Medications Albuterol Sulfate (Ventolin 0.083% Nebulizer Soln -) 1 amp NEB Q4H PRN PRN Reason: SHORTNESS OF BREATH Albuterol/Ipratropium (Duoneb -) 1 amp NEB RQID [facility] Last Admin: 09/27/18 15:21 Dose: 1 amp Heparin Sodium (Porcine) (Heparin -) 5,000 unit SQ TID [facility] Last Admin: 09/27/18 06:16 Dose: 5,000 unit Levofloxacin (Levaquin 750 Mg Premixed Ivpb -) 750 mg in 150 mls @ 100 mls/hr IVPB DAILY [facility]; Protocol Last Admin: 09/27/18 09:54 Dose: 100 mls/hr Insulin Aspart (Novolog Vial Sliding Scale -) 1 vial SQ BIDAC [facility]; Protocol Last Admin: 09/27/18 06:16 Dose: Not Given Loratadine (Claritin -) 10 mg PO DAILY [facility] Last Admin: 09/27/18 09:54 Dose: 10 mg Methylprednisolone Sodium Succinate (Solu-Medrol -) 40 mg IVPUSH Q8H-IV [facility] Last Admin: 09/27/18 09:56 Dose: 40 mg Pantoprazole Sodium (Protonix Iv) 40 mg IVPUSH DAILY [facility] Last Admin: 09/27/18 09:55 Dose: 40 mg ASSESSMENT/PLAN: 62 y/o M with PMHx of COPD, CHF, who was recently d/c'ed from [facility] in 06/2018, found to be in Acute Hypoxic, Hypercapnic Respiratory Failure and will be monitored in ICU. #Neuro Mental status improved -Likely due to Hypercapnia -Aspiration precautions -Continue to monitor #Cardio Hx of Diastolic CHF -Trop < 0.02 -EKG: NSR, LAD, VR 83, QTc 399 -Resume home dose Anti-HTNs when taking PO #Pulmonary Acute Hypoxic, Hypercapnic Respiratory Failure Hx of COPD, NADIRA -Likely due to COPD Exacerbation, Noncompliance with Bipap at home -ABG shows improvement -CXR: Superimposed left base infiltrate and/or atelectasis may be present. Atelectasis at the right base. -Continue Bipap HS; Tolerating Nasal canulla -IV Levofloxacin 750mg Daily (Started on 09/24) -IV Methylprednisolone decreased to 40mg Q8H -Albuterol Nebulizer Q4H PRN, Albuterol/Ipratropium QID -Supplemental O2 to maintain SpO2 85-92% #GI Morbid Obesity -Pantoprazole -Will need outpatient follow up for tighter weight control, possibly bariatric surgery -Dr. Rodriguez consulted #Renal -No Active issues, Continue to monitor #Heme Thrombocytopenia -Plt count downtrending; Continue to monitor #Endo Elevated Blood Glucose -BGMs ISS ACHS #ID Leukocytosis, Improving -Afebrile -LA 1.4 -UA: LE and Nitrite negative, WBC None -Influenza negative -Urine Cx negative; Blood cx NGTD #FEN -PO Fluids -Lytes WNL -Soft diet #PPx -DVT: Heparin TID -GI: Pantoprazole Code Status: Full Code Dispo: Transfer to Tele Visit type - Emergency Visit Emergency Visit: Yes ED Registration Date: 09/24/18 Care time: The patient presented to the Emergency Department on the above date and was hospitalized for further evaluation of their emergent condition. - New Patient This patient is new to me today: No - Critical Care Critical Care patient: Yes Total Critical Care Time (in minutes): 36 Critical Care Statement: The care of this patient involved high complexity decision making to prevent further life threatening deterioration of the patient 's condition and/or to evaluate & treat vital organ system(s) failure or risk of failure.
[2018-09-28] MEDS: methylPREDNISolone NA SUCC 40 MG/1 ML VIAL IVPUSH SCH ×3 (02:01→18:38)
[2018-09-28] MEDS: HEPARIN NA (PORCINE) 5,000 UNITS/ML 1ML VIAL SQ SCH ×3 (05:43→22:04)
[2018-09-28] MEDS: INSULIN SLIDING SCALE (NOVOLOG) 1 VIAL SQ SCH ×2 (05:59→17:08)
[2018-09-28] MEDS ORDERED: INSULIN (NOVOLOG) ASPART 100 UNITS/ML 10ML VIAL ONE (05:59)
[2018-09-28 06:58] LABS: BASO % 0.2 % (0-2.0); HEMATOCRIT 41.2 % (35.4-49); HEMOGLOBIN 13.7 GM/dL (11.7-16.9); LYMPH % 3.8 % (8-40); MCH 29.1 pg (25.7-33.7); MCHC 33.4 g/dl (32.0-35.9); MEAN CELL VOLUME 87.2 fl (80-96); MEAN PLT VOLUME 9.2 fl (7.5-11.1); PLATELET COUNT 131 K/MM3 (134-434); RBC 4.72 M/mm3 (4.00-5.60); RDW 15.7 % (11.9-15.9); WHITE BLOOD COUNT 8.1 K/mm3 (4.0-10.0)
[2018-09-28 07:15] LABS: ALBUMIN 3.3 g/dl (3.4-5.0); ALK PHOS 58 U/L (45-117); ANION GAP 4 MMOL/L (8-16); BILIRUBIN,TOTAL 0.6 mg/dL (0.2-1); BLOOD UREA NITROGEN 21 mg/dL (7-18); CALCIUM 8.8 mg/dL (8.5-10.1); CHLORIDE 92 mmol/L (98-107); CO2 42 mmol/L (21-32); CREATININE 0.7 mg/dL (0.55-1.3); GLUCOSE,RANDOM 207 mg/dL (74-106); MAGNESIUM 2.3 mg/dL (1.8-2.4); PHOSPHOROUS 4.4 mg/dL (2.5-4.9); POTASSIUM 3.9 mmol/L (3.5-5.1); SGOT/AST 10 U/L (15-37); SGPT/ALT 22 U/L (13-61); SODIUM 138 mmol/L (136-145); TOT PROT 6.2 g/dl (6.4-8.2)
--- NOTE | 2018-09-28 08:10 | PN ---
Progress Note (short form) - Note Progress Note: PULM/CCM Patient seen and examined in the ICU. Much more awake and alert today s/p nocturnal Bi-Level on New increased delta: New Settings 06/06 (8 @ Home). Doing well on NC O2 all the day long. Home Bi-Level setting re-adjusted. Pt requesting D/c --> Home. Active Medications Albuterol Sulfate (Ventolin 0.083% Nebulizer Soln -) 1 amp NEB Q4H PRN PRN Reason: SHORTNESS OF BREATH Albuterol/Ipratropium (Duoneb -) 1 amp NEB RQID [facility] Last Admin: 09/28/18 16:01 Dose: 1 amp Heparin Sodium (Porcine) (Heparin -) 5,000 unit SQ TID [facility] Last Admin: 09/28/18 13:15 Dose: 5,000 unit Levofloxacin (Levaquin 750 Mg Premixed Ivpb -) 750 mg in 150 mls @ 100 mls/hr IVPB DAILY [facility]; Protocol Last Admin: 09/28/18 09:29 Dose: 100 mls/hr Insulin Aspart (Novolog Vial Sliding Scale -) 1 vial SQ BIDAC [facility]; Protocol Last Admin: 09/28/18 17:08 Dose: 4 units Loratadine (Claritin -) 10 mg PO DAILY [facility] Last Admin: 09/28/18 09:29 Dose: 10 mg Methylprednisolone Sodium Succinate (Solu-Medrol -) 40 mg IVPUSH Q8H-IV [facility] Last Admin: 09/28/18 09:29 Dose: 40 mg Pantoprazole Sodium (Protonix Iv) 40 mg IVPUSH DAILY [facility] Last Admin: 09/28/18 09:29 Dose: 40 mg V/S Period Temp Pulse Resp BP Sys/Can Pulse Ox Last 24 Hr 96.6 F-99.5 F 53-70 25-26 105-146/78-86 92-92 Intake & Output 09/25/18 09/26/18 09/27/18 09/28/18 23:59 23:59 23:59 23:59 Intake Total 344 351 7286 675 Output Total 1000 1950 1400 2100 Balance -840 -1060 0 -1425 Weight 155.8 kg 151.046 kg GEN: A&Ox3, NAD HEENT: NCAT, PERRL, MMM PULM: Diminished Breath Sounds at the bases, CV: Nml S1, S2, RR, unable to appreciate any G/M/R ABD: Obese, +BS, nontender Midline Umbilical hernia. Diastasis Recti also present, N/T X4Q SKIN: Warm, dry, notice hyperpigmentation on LE B/L (tib/fib region) EXT: mild peripheral edema CBC, BMP 09/28/18 05:30 09/28/18 05:30 ABG Results ABG pH 7.40 (7.35-7.45) 09/27/18 06:45 ABG pCO2 at Pt Temp 75.0 mmHg (35-45) H* 09/27/18 06:45 ABG pO2 at Pt Temp 65.7 mmHg (80-100) L 09/27/18 06:45 ABG HCO3 45.9 meq/L (22-26) H* 09/27/18 06:45 ABG O2 Sat (Measured) 91.2 % (90-98.9) 09/27/18 06:45 ABG O2 Content 16.3 % vol (15-22) 09/27/18 06:45 ABG Base Excess 17.3 meq/l (-2-2) H* 09/27/18 06:45 CXR 09/26: A single AP view the chest is been submitted. Since 09/24/2018, the congestive changes with prominent mediastinum persist. Correlation recommended. ASSESSMENT AND PLAN: Acute on Chronic Hypoxic and Hypercapneic Respiratory Failure Acute COPD Exacerbation r/o Pneumonia Severe NADIRA/OHS LV Diastolic Dysfunction Pulmonary HTN Morbid Obesity - Supp FiO2 prn for an SpO2 goal of 90% - Antibiotics - f/u cultures - taper medrol - inhaled bronchodilators standing and PRN - continue nocturnal NIPPV at NEW settings - PO as tolerated - FS & Cover prn - Aspiration precautions - DVT/GI prophylaxis - 4W / 4S monitoring - D/c Home a/p DGL, ACNP-BC [facility] ICU PULM/CCM 8524 Critical Care Total Critical Care Time (in minutes): 39 Critical Care Statement: The care of this patient involved high complexity decision making to prevent further life threatening deterioration of the patient 's condition and/or to evaluate & treat vital organ system(s) failure or risk of failure.
[2018-09-28] MEDS: ALBUTEROL SO4 2.5/IPRATROPIUM 0.5 INH SOL 3 ML VIAL.NEB. NEB SCH ×4 (08:29→21:03)
[2018-09-28] MEDS: PANTOPRAZOLE SODIUM 40 MG VIAL IVPUSH SCH (09:29)
[2018-09-28] MEDS: LORATADINE 10 MG TABLET PO SCH (09:29)
[2018-09-28 10:22] LABS: ACANTHOCYTES 0; ANISOCYTOSIS 0; HELMET CELLS 0; HOWELL-JOLLY BODIES 0; MACROCYTOSIS 0; OVALOCYTE 0; PLATELET ESTIMATE NORMAL; ROULEAU 0; SICKELED CELLS 0; TARGET CELLS 0; TEAR DROP CELLS 0; TOXIC GRANULATION 0
[2018-09-28] MEDS ORDERED: ALBUTEROL SO4 0.083% IH SOL 2.5 MG/3 ML VIAL.NEB. NEB PRN (17:25)
--- NOTE | 2018-09-28 22:33 | PN ---
Progress Note, Physician Chief Complaint: pt is better and off the vent and on bipap he is alert and awake - Current Medication List Current Medications: Active Medications Albuterol Sulfate (Ventolin 0.083% Nebulizer Soln -) 1 amp NEB Q4H PRN PRN Reason: SHORTNESS OF BREATH Albuterol/Ipratropium (Duoneb -) 1 amp NEB RQID [facility] Last Admin: 09/28/18 21:03 Dose: 1 amp Heparin Sodium (Porcine) (Heparin -) 5,000 unit SQ TID [facility] Last Admin: 09/28/18 22:04 Dose: 5,000 unit Levofloxacin (Levaquin 750 Mg Premixed Ivpb -) 750 mg in 150 mls @ 100 mls/hr IVPB DAILY [facility]; Protocol Insulin Aspart (Novolog Vial Sliding Scale -) 1 vial SQ BIDAC [facility]; Protocol Loratadine (Claritin -) 10 mg PO DAILY [facility] Methylprednisolone Sodium Succinate (Solu-Medrol -) 40 mg IVPUSH Q8H-IV [facility] Last Admin: 09/28/18 18:38 Dose: 40 mg Pantoprazole Sodium (Protonix Iv) 40 mg IVPUSH DAILY [facility] - Objective Vital Signs: Vital Signs Temperature 98.5 F 09/28/18 18:18 Pulse Rate 74 09/28/18 18:18 Respiratory Rate 20 09/28/18 18:18 Blood Pressure 138/74 09/28/18 18:18 O2 Sat by Pulse Oximetry (%) 92 L 09/27/18 19:58 Constitutional: No: Well Nourished, No Distress, Calm, Anxious, Ashen, Cachectic , Diaphoresis, Mild Distress, Moderate Distress, Severe Distress, Obese, Pallor , Poor Hygeine, Thin, Other Eyes: No: WNL, Conjunctiva Clear, EOM Intact, Cataracts, Diplopia, Occular Prosthesis, PERRL, Ptosis, Sclera Icterus, Tearing, Other HENT: No: WNL, Atraumatic, Normocephalic, Drooling, Epistaxis, Hoarseness, Nasal Congestion, Pharyngeal Erythema, Rhinnorhea, Thrush, Tonsillar Exudate, Other Neck: No: WNL, Supple, Trachea Midline, Decreased ROM, Lymphadenopathy, Rigid, Tenderness, Thyromegaly, Other Cardiovascular: No: WNL, Regular Rate and Rhythm, Bradycardia, Tachycardia, Pulse Irregular, Bruit, JVD, Gallop, Murmur, Rub, S1, S2, S3, S4, Varicosities, Other Respiratory: No: WNL, Regular, CTA Bilaterally, Accessory Muscle Use, Bradypnea , Vin[place], Cough, Diminished, Dullness, Hyperresonant, Intubated, [place] , Mechanically Ventilated, On BiPap, On Nasal O2, On Venti-Mask, Orthopnea, Poor Air Entry, Rales, Rhonchi, SOB, SOB on Exertion, Stridor, Tachypnea, Wheezes, Other Genitourinary: No: WNL, Anuria, Bladder Distention, CVA Tenderness - Left, CVA Tenderness - Right, Gore Present, Hematuria, Incontinence, Menses Present, Oliguria, Polyuria, , Scrotal Edema, Urethral Discharge, Vaginal Bleeding, Vaginal Discharge, Other Musculoskeletal: No: WNL, Back Pain, Joint Stiffness, Joint Swelling, Muscle Pain, Muscle Weakness, Other Extremities: No: WNL, Amputation, Calf Tenderness, Cold, Cool, Cyanosis, Deformity, Delayed Capillary Refill, Erythema, External Rotation, Internal Rotation, Pallor, Shortened, Other Integumentary: No: WNL, Body Piercing, Bruising, Erythema, Incision, Jaundice, Laceration, Petechiae, Pressure Ulcer, Rash, Skin Tear, Tattoos, Tenting, Onychomycosis, Venous Stasis Changes, Other Wound/Incision: No: Clean/Dry, Well Approximated, Sutures Intact, [place] Intact , Steri Strips, Open to air, Dressing Dry and Intact, Dressing Removed, [place] Removed, Sutures Removed, Draining, Reddened, Bleeding, Excoriated, Unapproximated, Other Neurological: No: WNL, Alert, Oriented, Aphasia, Asterixis, Ataxia, Babinski positive, Babinski negative, Confusion, Cran Nerves II-XII Intact, Dysarthria, Facial Droop, Lethargy, Loss of Sensation, Numbness, Paresthesia, Pre-Existing Deficit, Seizure, Tingling, Tremors, Unresponsive, Unsteady Gait, Weakness, Other Psychiatric: No: WNL, Alert, Oriented, Agitated, Suicidal Ideation, Other Labs: CBC, BMP 09/28/18 05:30 09/28/18 05:30 INR, PTT INR 0.99 (0.83-1.09) 09/24/18 12:24 Assessment/Plan 62 y/o M with PMHx of COPD, CHF, who was recently d/c'ed from [facility] in 06/2018, found to be in Acute Hypoxic, Hypercapnic Respiratory Failure and will be monitored in ICU. #Neuro Mental status improved -much improved -Continue to monitor #Cardio Hx of Diastolic CHF -Trop < 0.02 -EKG: NSR, LAD, VR 83, QTc 399 -Resume home dose Anti-HTNs when taking PO #Pulmonary Acute Hypoxic, Hypercapnic Respiratory Failure Hx of COPD, NADIRA -Likely due to COPD Exacerbation, Noncompliance with Bipap at home -ABG shows improvement -CXR: Superimposed left base infiltrate and/or atelectasis may be present. Atelectasis at the right base. -Continue Bipap HS; Tolerating Nasal canulla -IV Levofloxacin 750mg Daily (Started on 09/24) -IV Methylprednisolone decreased to 40mg Q8H -Albuterol Nebulizer Q4H PRN, Albuterol/Ipratropium QID -Supplemental O2 to maintain SpO2 85-92% #GI Morbid Obesity -Pantoprazole -Will need outpatient follow up for tighter weight control, possibly bariatric surgery -Dr. Rodriguez consulted #Renal -No Active issues, Continue to monitor #Heme Thrombocytopenia -Plt count downtrending; Continue to monitor #Endo Elevated Blood Glucose -BGMs ISS ACHS #ID Leukocytosis, Improving -Afebrile -LA 1.4 -UA: LE and Nitrite negative, WBC None -Influenza negative -Urine Cx negative; Blood cx NGTD #FEN -PO Fluids -Lytes WNL -Soft diet #PPx -DVT: Heparin TID -GI: Pantoprazole Code Status: Full Code Dispo: Transfer to Tele
[2018-09-29] MEDS: methylPREDNISolone NA SUCC 40 MG/1 ML VIAL IVPUSH SCH ×3 (02:22→18:15)
[2018-09-29] MEDS: HEPARIN NA (PORCINE) 5,000 UNITS/ML 1ML VIAL SQ SCH ×3 (07:08→22:35)
[2018-09-29] MEDS: INSULIN SLIDING SCALE (NOVOLOG) 1 VIAL SQ SCH ×2 (07:08→17:20)
[2018-09-29] MEDS: ALBUTEROL SO4 2.5/IPRATROPIUM 0.5 INH SOL 3 ML VIAL.NEB. NEB SCH ×4 (08:25→20:35)
[2018-09-29] MEDS ORDERED: PANTOPRAZOLE SODIUM 40 MG VIAL IVPUSH SCH (10:00)
[2018-09-29] MEDS: LORATADINE 10 MG TABLET PO SCH (10:28)
--- NOTE | 2018-09-29 11:16 | PN ---
Progress Note, Physician History of Present Illness: PULMONARY ALERT,COMFORTABLE,-RESP DISTRESS,SITTING UP IN BED - Current Medication List Current Medications: Active Medications Albuterol Sulfate (Ventolin 0.083% Nebulizer Soln -) 1 amp NEB Q4H PRN PRN Reason: SHORTNESS OF BREATH Albuterol/Ipratropium (Duoneb -) 1 amp NEB RQID [facility] Last Admin: 09/29/18 08:25 Dose: 1 amp Heparin Sodium (Porcine) (Heparin -) 5,000 unit SQ TID [facility] Last Admin: 09/29/18 07:08 Dose: 5,000 unit Levofloxacin (Levaquin 750 Mg Premixed Ivpb -) 750 mg in 150 mls @ 100 mls/hr IVPB DAILY [facility]; Protocol Last Admin: 09/29/18 10:27 Dose: 100 mls/hr Insulin Aspart (Novolog Vial Sliding Scale -) 1 vial SQ BIDAC [facility]; Protocol Last Admin: 09/29/18 07:08 Dose: 4 units Loratadine (Claritin -) 10 mg PO DAILY [facility] Last Admin: 09/29/18 10:28 Dose: 10 mg Methylprednisolone Sodium Succinate (Solu-Medrol -) 40 mg IVPUSH Q8H-IV [facility] Last Admin: 09/29/18 10:27 Dose: 40 mg Pantoprazole Sodium (Protonix Iv) 40 mg IVPUSH DAILY [facility] Last Admin: 09/29/18 10:27 Dose: 40 mg - Objective Vital Signs: Vital Signs Temperature 97.4 F L 09/29/18 06:06 Pulse Rate 60 09/29/18 06:06 Respiratory Rate 20 09/29/18 06:06 Blood Pressure 129/77 09/29/18 06:06 O2 Sat by Pulse Oximetry (%) 89 L 09/28/18 22:00 Constitutional: Yes: Well Nourished, Obese Eyes: Yes: WNL HENT: Yes: WNL Neck: Yes: WNL Cardiovascular: Yes: Regular Rate and Rhythm, S1, S2 Respiratory: Yes: Diminished Gastrointestinal: Yes: Normal Bowel Sounds, Soft Extremities: Yes: WNL Edema: Yes Labs: CBC, BMP Assessment/Plan ASSESSMENT AND PLAN: Acute on Chronic Hypoxic and Hypercapneic Respiratory Failure Acute COPD Exacerbation r/o Pneumonia Severe NADIRA/OHS LV Diastolic Dysfunction Pulmonary HTN Morbid Obesity - taper medrol - inhaled bronchodilators standing and PRN - continue on NIPPV at the same settings ,alt with nasal o2 - PO as tolerated - Aspiration precautions - DVT/GI prophylaxis - Dr Bhatia Problem List - Problems (1) Acute and chronic respiratory failure Code(s): J96.20 - ACUTE AND CHR RESP FAILURE, UNSP W HYPOXIA OR HYPERCAPNIA Qualifiers: Respiratory failure complication: hypoxia and hypercapnia Qualified Code(s) : J96.21 - Acute and chronic respiratory failure with hypoxia; J96.22 - Acute and chronic respiratory failure with hypercapnia (2) Obesity hypoventilation syndrome Code(s): E66.2 - MORBID (SEVERE) OBESITY WITH ALVEOLAR HYPOVENTILATION (3) Acute exacerbation of chronic obstructive airways disease Code(s): J44.1 - CHRONIC OBSTRUCTIVE PULMONARY DISEASE W (ACUTE) EXACERBATION (4) Pulmonary vascular congestion Code(s): R09.89 - OTH SYMPTOMS AND SIGNS INVOLVING THE CIRC AND RESP SYSTEMS (5) Acute respiratory acidosis Code(s): E87.2 - ACIDOSIS (6) COPD (chronic obstructive pulmonary disease) Code(s): J44.9 - CHRONIC OBSTRUCTIVE PULMONARY DISEASE, UNSPECIFIED
--- NOTE | 2018-09-29 21:09 | PN ---
Progress Note (short form) - Note Progress Note: feels beter off vent vs Vital Signs Period Temp Pulse Resp BP Sys/Can Pulse Ox Last 24 Hr 97.4 F-98.2 F 59-89 18-20 111-136/66-77 89-93 heent nad lungs clear heart no change ext no edema Laboratory Results - last 24 hr 09/29/18 09/29/18 06:02 17:16 POC Glucometer 212 215 Current Medications Albuterol Sulfate (Ventolin 0.083% Nebulizer Soln -) 1 amp NEB Q4H PRN PRN Reason: SHORTNESS OF BREATH Albuterol/Ipratropium (Duoneb -) 1 amp NEB RQID [facility] Last Admin: 09/29/18 16:14 Dose: 1 amp Heparin Sodium (Porcine) (Heparin -) 5,000 unit SQ TID [facility] Last Admin: 09/29/18 15:57 Dose: 5,000 unit Levofloxacin (Levaquin 750 Mg Premixed Ivpb -) 750 mg in 150 mls @ 100 mls/hr IVPB DAILY [facility]; Protocol Last Admin: 09/29/18 10:27 Dose: 100 mls/hr Insulin Aspart (Novolog Vial Sliding Scale -) 1 vial SQ BIDAC [facility]; Protocol Last Admin: 09/29/18 17:20 Dose: 4 units Loratadine (Claritin -) 10 mg PO DAILY [facility] Last Admin: 09/29/18 10:28 Dose: 10 mg Methylprednisolone Sodium Succinate (Solu-Medrol -) 40 mg IVPUSH Q8H-IV [facility] Last Admin: 09/29/18 18:15 Dose: 40 mg Pantoprazole Sodium (Protonix Iv) 40 mg IVPUSH DAILY [facility] Last Admin: 09/29/18 10:27 Dose: 40 mg Assessment/Plan 62 y/o M with PMHx of COPD, CHF, who was recently d/c'ed from [facility] in 06/2018, found to be in Acute Hypoxic, Hypercapnic Respiratory Failure and will be monitored in ICU. #Neuro Mental status improved -much improved -Continue to monitor #Cardio -Resume home dose Anti-HTNs when taking PO #Pulmonary Acute Hypoxic, Hypercapnic Respiratory Failure Hx of COPD, NADIRA -Likely due to COPD Exacerbation, Noncompliance with Bipap at home -ABG shows improvement -CXR: Superimposed left base infiltrate and/or atelectasis may be present. Atelectasis at the right base. -Continue Bipap HS; Tolerating Nasal canulla -IV Levofloxacin 750mg Daily (Started on 09/24) -IV Methylprednisolone decreased to 40mg Q8H -Albuterol Nebulizer Q4H PRN, Albuterol/Ipratropium QID -Supplemental O2 to maintain SpO2 85-92% #GI Morbid Obesity -Pantoprazole -Will need outpatient follow up for tighter weight control, possibly bariatric surgery -Dr. Rodriguez consulted #Renal -No Active issues, Continue to monitor #Heme Thrombocytopenia -Plt count downtrending; Continue to monitor #Endo Elevated Blood Glucose -BGMs ISS ACHS #ID Leukocytosis, Improving -Afebrile -LA 1.4 -UA: LE and Nitrite negative, WBC None -Influenza negative -Urine Cx negative; Blood cx NGTD #FEN -PO Fluids -Lytes WNL -Soft diet #PPx -DVT: Heparin TID -GI: Pantoprazole Code Status: Full Code Dispo: Transfer to [facility]
[2018-09-30] MEDS: methylPREDNISolone NA SUCC 40 MG/1 ML VIAL IVPUSH SCH ×3 (02:08→21:47)
[2018-09-30] MEDS: HEPARIN NA (PORCINE) 5,000 UNITS/ML 1ML VIAL SQ SCH ×3 (06:34→21:46)
[2018-09-30] MEDS: INSULIN SLIDING SCALE (NOVOLOG) 1 VIAL SQ SCH ×2 (06:34→17:11)
[2018-09-30] MEDS: ALBUTEROL SO4 2.5/IPRATROPIUM 0.5 INH SOL 3 ML VIAL.NEB. NEB SCH ×4 (07:16→20:11)
--- NOTE | 2018-09-30 08:42 | PN ---
Progress Note (short form) - Note Progress Note: CBC, BMP 09/28/18 05:30 09/28/18 05:30 Vital Signs Period Temp Pulse Resp BP Sys/Can Pulse Ox Last 24 Hr 97.7 F-98.2 F 70-89 18-20 131-164/68-89 89-93 S1S2 rrr lungs cta ant, pretty good air entry abd soft NT +bs tr edema awake, alert, oriented x3 Hypercapnic respiratory failure COPD NADIRA Morbid Obesity much improved BIPAP at night O2 steroid taper empiric abx 7-10 gi/dvt prophylaxis riss pt is anxious to go home, will defer to pulmonary Problem List - Problems (1) Obesity due to excess calories with serious comorbidity Code(s): E66.09 - OTHER OBESITY DUE TO EXCESS CALORIES Qualifiers: Body mass index: BMI 40.0-44.9 (2) Acute and chronic respiratory failure Code(s): J96.20 - ACUTE AND CHR RESP FAILURE, UNSP W HYPOXIA OR HYPERCAPNIA Qualifiers: Respiratory failure complication: hypoxia and hypercapnia Qualified Code(s) : J96.21 - Acute and chronic respiratory failure with hypoxia; J96.22 - Acute and chronic respiratory failure with hypercapnia (3) COPD (chronic obstructive pulmonary disease) Code(s): J44.9 - CHRONIC OBSTRUCTIVE PULMONARY DISEASE, UNSPECIFIED
[2018-09-30] MEDS: PANTOPRAZOLE 40 MG TABLET (FP) PO SCH (09:40)
[2018-09-30] MEDS: LORATADINE 10 MG TABLET PO SCH (09:41)
[2018-09-30] MEDS: LOSARTAN POTASSIUM 50 MG TABLET (FP) PO SCH (09:41)
[2018-09-30] MEDS: amLODIPine BESYLATE 5 MG TABLET (FP) PO SCH (09:41)
--- NOTE | 2018-09-30 11:36 | PN ---
Progress Note, Physician History of Present Illness: PULMONAREY ALERT,SITTING UP IN BED,-RESP DISTRESS. O2 SAT 95% - Current Medication List Current Medications: Active Medications Albuterol Sulfate (Ventolin 0.083% Nebulizer Soln -) 1 amp NEB Q4H PRN PRN Reason: SHORTNESS OF BREATH Albuterol/Ipratropium (Duoneb -) 1 amp NEB RQID [facility] Last Admin: 09/30/18 11:15 Dose: 1 amp Amlodipine Besylate (Norvasc -) 5 mg PO DAILY [facility] Last Admin: 09/30/18 09:41 Dose: 5 mg Heparin Sodium (Porcine) (Heparin -) 5,000 unit SQ TID [facility] Last Admin: 09/30/18 06:34 Dose: 5,000 unit Levofloxacin (Levaquin 750 Mg Premixed Ivpb -) 750 mg in 150 mls @ 100 mls/hr IVPB DAILY [facility]; Protocol Last Admin: 09/30/18 09:40 Dose: 100 mls/hr Insulin Aspart (Novolog Vial Sliding Scale -) 1 vial SQ BIDAC [facility]; Protocol Last Admin: 09/30/18 06:34 Dose: 6 units Loratadine (Claritin -) 10 mg PO DAILY [facility] Last Admin: 09/30/18 09:41 Dose: 10 mg Losartan Potassium (Cozaar -) 50 mg PO DAILY [facility] Last Admin: 09/30/18 09:41 Dose: 50 mg Methylprednisolone Sodium Succinate (Solu-Medrol -) 40 mg IVPUSH BID [facility] Last Admin: 09/30/18 09:40 Dose: 40 mg Pantoprazole Sodium (Protonix -) 40 mg PO DAILY [facility] Last Admin: 09/30/18 09:40 Dose: 40 mg - Objective Vital Signs: Vital Signs Temperature 98.2 F 09/30/18 09:40 Pulse Rate 101 H 09/30/18 09:40 Respiratory Rate 20 09/30/18 09:40 Blood Pressure 133/45 L 09/30/18 09:40 O2 Sat by Pulse Oximetry (%) 90 L 09/30/18 08:35 Constitutional: Yes: Well Nourished, Obese Eyes: Yes: WNL HENT: Yes: WNL Neck: Yes: WNL Cardiovascular: Yes: Regular Rate and Rhythm, S1, S2 Respiratory: Yes: CTA Bilaterally Gastrointestinal: Yes: Normal Bowel Sounds, Soft, Abdomen, Obese Extremities: Yes: WNL Edema: Yes Labs: CBC, BMP Assessment/Plan ASSESSMENT AND PLAN: Acute on Chronic Hypoxic and Hypercapneic Respiratory Failure improving Acute COPD Exacerbation improving r/o Pneumonia Severe NADIRA/OHS LV Diastolic Dysfunction Pulmonary HTN Morbid Obesity - taper medrol - inhaled bronchodilators standing and PRN - continue on NIPPV at the same settings ,alt with nasal o2 - PO as tolerated - Aspiration precautions - DVT/GI prophylaxis - Dr Bhatia Problem List - Problems (1) Acute and chronic respiratory failure Code(s): J96.20 - ACUTE AND CHR RESP FAILURE, UNSP W HYPOXIA OR HYPERCAPNIA Qualifiers: Respiratory failure complication: hypoxia and hypercapnia Qualified Code(s) : J96.21 - Acute and chronic respiratory failure with hypoxia; J96.22 - Acute and chronic respiratory failure with hypercapnia (2) Obesity hypoventilation syndrome Code(s): E66.2 - MORBID (SEVERE) OBESITY WITH ALVEOLAR HYPOVENTILATION (3) Acute exacerbation of chronic obstructive airways disease Code(s): J44.1 - CHRONIC OBSTRUCTIVE PULMONARY DISEASE W (ACUTE) EXACERBATION (4) Pulmonary vascular congestion Code(s): R09.89 - OTH SYMPTOMS AND SIGNS INVOLVING THE CIRC AND RESP SYSTEMS (5) Acute respiratory acidosis Code(s): E87.2 - ACIDOSIS (6) COPD (chronic obstructive pulmonary disease) Code(s): J44.9 - CHRONIC OBSTRUCTIVE PULMONARY DISEASE, UNSPECIFIED
[2018-10-01] MEDS: HEPARIN NA (PORCINE) 5,000 UNITS/ML 1ML VIAL SQ SCH ×2 (06:20→14:55)
[2018-10-01] MEDS: INSULIN SLIDING SCALE (NOVOLOG) 1 VIAL SQ SCH ×2 (06:21→16:54)
[2018-10-01] MEDS: ALBUTEROL SO4 2.5/IPRATROPIUM 0.5 INH SOL 3 ML VIAL.NEB. NEB SCH ×4 (07:26→20:39)
[2018-10-01] MEDS: amLODIPine BESYLATE 5 MG TABLET (FP) PO SCH (09:58)
[2018-10-01] MEDS: LORATADINE 10 MG TABLET PO SCH (09:58)
[2018-10-01] MEDS: PANTOPRAZOLE 40 MG TABLET (FP) PO SCH (09:58)
[2018-10-01] MEDS: LOSARTAN POTASSIUM 50 MG TABLET (FP) PO SCH (09:58)
[2018-10-01] MEDS: methylPREDNISolone NA SUCC 40 MG/1 ML VIAL IVPUSH SCH (09:59)
--- NOTE | 2018-10-01 12:50 | PN ---
Progress Note, Physician History of Present Illness: pulmonary alert,no distress oob-chair,-cp,-sob. o2 sat94% on nasal o2 - Current Medication List Current Medications: Active Medications Albuterol Sulfate (Ventolin 0.083% Nebulizer Soln -) 1 amp NEB Q4H PRN PRN Reason: SHORTNESS OF BREATH Albuterol/Ipratropium (Duoneb -) 1 amp NEB RQID [facility] Last Admin: 10/01/18 11:05 Dose: 1 amp Amlodipine Besylate (Norvasc -) 5 mg PO DAILY [facility] Last Admin: 10/01/18 09:58 Dose: 5 mg Heparin Sodium (Porcine) (Heparin -) 5,000 unit SQ TID [facility] Last Admin: 10/01/18 06:20 Dose: 5,000 unit Levofloxacin (Levaquin 750 Mg Premixed Ivpb -) 750 mg in 150 mls @ 100 mls/hr IVPB DAILY [facility]; Protocol Last Admin: 10/01/18 10:03 Dose: 100 mls/hr Insulin Aspart (Novolog Vial Sliding Scale -) 1 vial SQ BIDAC [facility]; Protocol Last Admin: 10/01/18 06:21 Dose: 6 units Loratadine (Claritin -) 10 mg PO DAILY [facility] Last Admin: 10/01/18 09:58 Dose: 10 mg Losartan Potassium (Cozaar -) 50 mg PO DAILY [facility] Last Admin: 10/01/18 09:58 Dose: 50 mg Methylprednisolone Sodium Succinate (Solu-Medrol -) 40 mg IVPUSH BID [facility] Last Admin: 10/01/18 09:59 Dose: 40 mg Pantoprazole Sodium (Protonix -) 40 mg PO DAILY [facility] Last Admin: 10/01/18 09:58 Dose: 40 mg - Objective Vital Signs: Vital Signs Temperature 98.0 F 10/01/18 06:00 Pulse Rate 75 10/01/18 06:00 Respiratory Rate 20 10/01/18 06:00 Blood Pressure 128/76 10/01/18 06:00 O2 Sat by Pulse Oximetry (%) 89 L 09/30/18 22:00 Constitutional: Yes: Calm, Obese Eyes: Yes: WNL HENT: Yes: WNL Neck: Yes: WNL Cardiovascular: Yes: Regular Rate and Rhythm, S1, S2 Respiratory: Yes: Diminished Gastrointestinal: Yes: Normal Bowel Sounds, Soft, Abdomen, Obese Extremities: Yes: WNL Edema: Yes Labs: Assessment/Plan ASSESSMENT AND PLAN: Acute on Chronic Hypoxic and Hypercapneic Respiratory Failure improved Acute COPD Exacerbation improved r/o Pneumonia Severe NADIRA/OHS LV Diastolic Dysfunction Pulmonary HTN Morbid Obesity - Prednisone - inhaled bronchodilators standing and PRN - outpatient pulmonary rehab - bipap at night - o2 Dr Bhatia Problem List - Problems (1) Acute and chronic respiratory failure Code(s): J96.20 - ACUTE AND CHR RESP FAILURE, UNSP W HYPOXIA OR HYPERCAPNIA Qualifiers: Respiratory failure complication: hypoxia and hypercapnia Qualified Code(s) : J96.21 - Acute and chronic respiratory failure with hypoxia; J96.22 - Acute and chronic respiratory failure with hypercapnia (2) Obesity hypoventilation syndrome Code(s): E66.2 - MORBID (SEVERE) OBESITY WITH ALVEOLAR HYPOVENTILATION (3) Acute exacerbation of chronic obstructive airways disease Code(s): J44.1 - CHRONIC OBSTRUCTIVE PULMONARY DISEASE W (ACUTE) EXACERBATION (4) Pulmonary vascular congestion Code(s): R09.89 - OTH SYMPTOMS AND SIGNS INVOLVING THE CIRC AND RESP SYSTEMS (5) Acute respiratory acidosis Code(s): E87.2 - ACIDOSIS (6) COPD (chronic obstructive pulmonary disease) Code(s): J44.9 - CHRONIC OBSTRUCTIVE PULMONARY DISEASE, UNSPECIFIED
--- NOTE | 2018-10-01 12:58 | DS ---
Physical Examination Vital Signs: Vital Signs Temperature 98.0 F 10/01/18 06:00 Pulse Rate 75 10/01/18 06:00 Respiratory Rate 20 10/01/18 06:00 Blood Pressure 128/76 10/01/18 06:00 O2 Sat by Pulse Oximetry (%) 89 L 09/30/18 22:00 Constitutional: Yes: Calm Eyes: Yes: EOM Intact HENT: Yes: Normocephalic Neck: Yes: Trachea Midline Cardiovascular: Yes: Regular Rate and Rhythm Respiratory: Yes: CTA Bilaterally Gastrointestinal: Yes: Soft, Abdomen, Obese Musculoskeletal: Yes: WNL Extremities: Yes: WNL Edema: No Labs: CBC, BMP 09/28/18 05:30 09/28/18 05:30 Discharge Summary Reason For Visit: ACUTE RESP FAILURE,ACUTE RESP ACIDOSIS Current Active Problems Acute and chronic respiratory failure (Acute) Acute exacerbation of chronic obstructive airways disease (Acute) Acute respiratory acidosis (Acute) Acute respiratory failure (Acute) Left lower lobe pulmonary infiltrate (Acute) Obesity due to excess calories with serious comorbidity (Acute) Obesity hypoventilation syndrome (Acute) Pulmonary vascular congestion (Acute) Hospital Course: admitted for acute hypercapnic, hypoxic respiratory failure, possible underlying pna. improved with BIPAP, iv steroids, ebulizers, iv abx-completed 7 day course much better, ambulatory in [place]. medically stable to sc home with oral steroid taper and close outpt f/up - Instructions Referrals: Haylie Noel MD [Primary Care Provider] - Disposition: HOME - Home Medications Comprehensive Discharge Medication List: Ambulatory Orders Albuterol 0.083% Nebulizer [place] [Ventolin 0.083% Nebulizer Soln -] 1 amp NEB Q4H PRN amp 07/05/18 Albuterol 2.5/Ipratropium 0.5 [Duoneb -] 1 amp NEB RQID amp 07/05/18 Fluticasone/Salmeterol [Advair Hfa 230-21 Mcg Inhaler] 2 inh PO BID #1 inhaler 07/05/18 Losartan Potassium [Cozaar -] 100 mg PO DAILY tablet 07/05/18 Omeprazole 40 mg PO DAILY #10 tab.rap.dr 07/05/18 Tiotropium [place] [Spiriva] 1 inh PO DAILY #30 inhaler 07/05/18 Amlodipine Besylate 5 mg PO DAILY 09/24/18 Fluticasone/Vilanterol [Breo Ellipta 200-25 Mcg INH] 1 puff IN DAILY 09/24/18 Umeclidinium [place] [Incruse Ellipta] 1 puff IN DAILY 09/24/18 Prednisone 10 mg PO DAILY #30 tablet 10/01/18
[2018-10-01 18:49] VITALS: BP 156/76; PULSE 65; TEMP 97.9
== END 2018-10-01 21:35 | disposition home or self-care (01) | DRG 193 ==
LOC: JER 11:28 → JERBED 14:07 → JICU 16:50 → J4S 09-28 17:39
PROVIDERS: ADMIT Internal Medicine; ATTEND Internal Medicine
PROC: 5A09558 Assistance with Respiratory Ventilation, Greater than 96 Consecutive Hours, Intermittent Positive Airway Pressure (ICD-10-PCS; principal; 2018-09-24)
DX: J18.9 Pneumonia, unspecified organism (principal); J96.21 Acute and chronic respiratory failure with hypoxia; J96.22 Acute and chronic respiratory failure with hypercapnia; J44.0 Chronic obstructive pulmonary disease with (acute) lower respiratory infection; Z68.41 Body mass index [BMI] 40.0-44.9, adult; E87.2 Acidosis; J44.1 Chronic obstructive pulmonary disease with (acute) exacerbation; J44.9 Chronic obstructive pulmonary disease, unspecified; E66.01 Morbid (severe) obesity due to excess calories; G47.33 Obstructive sleep apnea (adult) (pediatric); I27.20 Pulmonary hypertension, unspecified; D69.6 Thrombocytopenia, unspecified; D72.829 Elevated white blood cell count, unspecified
CPT/HCPCS: 36415; 36600; 71045-TC-FY; 80053; 81003; 81015; 82375; 82803; 82962; 83050; 83605; 83735; 84100; 84484; 85025; 85610; 85730; 87040; 87086; 87804; 93005; 93010; 94640; 94660; 97116-GP; 97162-GP; 99284-25; J1644